=== PATIENT | female | born 1960 | race African-American/Black ===

== ENCOUNTER 2016-05-09 12:21 | Emergency (ER) | payer OTHER ==
[2016-05-09 13:15] LABS: MANUAL DIFF NEEDED? NO
[2016-05-09 13:23] LABS: BASO% 0.5 % (0.0-0.8); EOS# 0.12 X1000 (0.0-0.7); EOS% 1.9 % (0.0-10.0); HEMOGLOBIN 13.7 g/dL (12.0-16.0); LYMPH# 1.33 X1000 (1.2-3.4); LYMPH% 21.4 % (20.5-51.1); MCH 28.2 PG (27-31); MCHC 31.9 g/dL (33-37); MCV 88.7 FL (81-99); MONO# 0.28 X1000 (0.11-0.59); MONO% 4.5 % (1.7-9.3); MPV 11.8 FL (7.4-10.4); NEUT% 71.7 % (42.2-75.2); PLT 304 X1000 (130-400); RBC 4.85 XMIL (4.2-5.4)
[2016-05-09 13:43] LABS: CALCIUM 8.9 mg/dL (8.8-10.2); TOTAL BILIRUBIN 0.25 mg/dL (0.20-1.00); TOTAL PROTEIN 6.7 g/dL (6.3-8.3)
[2016-05-09] MEDS ORDERED: APRESOLINE IM ONE (14:29)
--- NOTE | 2016-05-09 14:34 | PROVIDER DOCUMENTATION ---
HPI-Abdominal Pain/GI Problem - General Chief Complaint: Abdominal Pain Stated Complaint: ABD PAIN/NECK PAIN Time Seen by Provider: 05/09/16 14:05 Source: patient Allergies/Adverse Reactions: Patient Allergies Allergy/AdvReac Type Severity Reaction Status Date / Time sulfamethoxazole Allergy Severe ANAPHYLAXIS Verified 03/27/16 22:02 [From ] trimethoprim [From ] Allergy Severe ANAPHYLAXIS Verified 03/27/16 22:02 morphine Allergy Intermediate HIVES Verified 03/27/16 22:02 Penicillins Allergy Mild HIVES Verified 03/27/16 22:02 Home Medications: Home Medication List Medication Instructions Recorded Confirmed Last Taken Type Metoprolol [Lopressor] 50 mg PO BID 09/03/14 03/27/16 05/08/16 07:00 History Alprazolam [Xanax] 1 mg PO BID 07/12/15 03/27/16 05/08/16 19:00 History Furosemide [Lasix] 40 mg PO DAILY 07/12/15 03/27/16 05/08/16 07:00 History Hydrocodone/Acetaminophen [[place] 1 tab PO BID 07/12/15 03/27/16 05/08/16 07:00 History 10-325 Tablet] Insulin Aspart Prot/Insuln Asp 15 units SUBQ HS 07/12/15 03/27/16 05/08/16 12: 00 History [Novolog Mix 70-30 Vial] Insulin Aspart Prot/Insuln Asp 30 units SUBQ QAM 07/12/15 03/27/16 05/08/16 19: 00 History [Novolog Mix 70-30 Vial] Promethazine [Phenergan] 25 mg PO Q6H PRN PRN 07/12/15 03/27/16 10/07/15 History Amlodipine Besylate [Norvasc] 10 mg PO DAILY #30 tablet 08/11/15 03/27/16 07:00 Rx Losartan [Cozaar] 50 mg PO DAILY #30 tablet 08/11/15 03/27/16 05/08/16 07:00 Rx Methocarbamol [Robaxin] 500 mg PO BID #20 tablet 05/09/16 Unknown Rx - History of Present Illness-ABD Nature of Presenting Problems: 55 y/o F presents with complaint of LLQ abdominal pain radiating up to LUQ since she had an abdominal surgery in August 2015. Patient states it feels like a "knot", sticking, and aching sensation. She also reports loose stools x 1 week and upper back pain x months. Pain in upper back feels like a "catch" located between her shoulder blades. She had a CT abd/pelvis on 03/15/16 for the same symptoms which was negative. She denies any fever, N/V. Abdominal Pain Onset Location: reports: LLQ Pain Radiation: reports: LUQ Quality of Pain: reports: other (see HPI) Onset/Duration: reports: other (see HPI) Timing: reports: still present (unchanged) Modifying Factors: improves with: nothing Last BM: this morning Dark Stools Present?: reports: none noticed Rectal Bleeding: reports: none Emesis Description: reports: none Review of Systems - Adult - REVIEW OF SYSTEMS - ADULT Constitutional: reports: no symptoms reported. denies: chills, fever Eyes: reports: no symptoms reported Ears, Nose, Mouth & Throat: reports: no symptoms reported Cardiovascular: reports: no symptoms reported. denies: chest pain Respiratory: reports: no symptoms reported. denies: cough, shortness of breath Gastrointestinal: reports: see HPI Genitourinary: reports: no symptoms reported. denies: dysuria, frequency, flank pain Musculoskeletal: reports: no symptoms reported Integumentary: reports: no symptoms reported. denies: itching, rash Neurological: reports: no symptoms reported. denies: dizziness/vertigo, headache/migraines, numbness, paresthesia Psychiatric: reports: no symptoms reported Endocrine: reports: no symptoms reported Hematologic/Lymphatic: reports: no symptoms reported Allergic/Immunologic: reports: no symptoms reported All Other Systems: Reviewed and Negative Past History - Adult - PAST MEDICAL HISTORY-ADULT Review of Records: reports: Old Records Reviewed, Nursing Assessment Review, Medications Reviewed Major Childhood Illnesses: reports: denies history Cardiovascular: reports: CHF, HTN, hyperlipidemia Respiratory: reports: asthma, COPD Gastrointestinal: reports: denies history Obstetrical/Gynecological: reports: other (post menopausal) Genitourinary: reports: denies history Musculoskeletal: reports: other (carpal tunnel syndrome bilaterally) Neurological: reports: denies history Psychiatric: reports: schizophrenia Endocrine/Immune: reports: Diabetes Other Conditions: reports: denies history - PRIOR SURGERIES/PROCEDURES Surgical/Procedure History: reports: BTL, orthopedic (extremity), other ( bilateral carpal tunnel release) - PRIOR HOSPITALIZATIONS Prior Hospitalizations: reports: for similar symptoms - IMMUNIZATION STATUS Childhood Immunizations: See Nurse Assessment Flu Vaccine: See Nurse Assessment - FAMILY HISTORY Family History: reviewed, not pertinent Physical Exam-General - PHYSICAL EXAM-ADULT Initial Vital Signs Reviewed: Yes - CONSTITUTIONAL General Appearance: appears well, alert, no apparent distress - EYES Eyes: PERRL/EOMI - HEAD, EARS, NOSE, MOUTH & THROAT HENMT: normocephalic/atraumatic, moist mucous membranes - NECK Neck: full range of motion, supple, other (TTP left rhomboids, pain with ROM.) - RESPIRATORY Respiratory: chest non-tender, lungs clear, normal breath sounds, no pleuratic chest pain, no respiratory distress, no accessory muscle use - CARDIOVASCULAR Cardiovascular: normal peripheral pulses, regular rate, rhythm, no edema - GASTROINTESTINAL (ABDOMEN) Abdominal Exam: normal bowel sounds, non tender, soft. negative: distended, guarding, rebound, mass - MUSCULOSKELETAL Extremity: normal range of motion, non-tender, normal gait - SKIN Integumentary: normal color, normal turgor, warm/dry - NEUROLOGIC Neurologic: grossly normal, no motor/sensory deficits - PSYCHIATRIC Psych/Mental Status: normal mood/affect, normal thought content, normal thought process, oriented x 3 Progress - PLAN OF CARE/RESULTS Progress/Plan/Lab Results: Laboratory Tests 05/09/16 05/09/16 05/09/16 12:45 12:45 Unknown WBC 6.22 RBC 4.85 Hgb 13.7 Hct 43.0 MCV 88.7 MCH 28.2 MCHC 31.9 L RDW Std Deviation 13.8 Plt Count 304 MPV 11.8 H Immature Gran % (Auto) 0.0 Neut % (Auto) 71.7 Lymph % (Auto) 21.4 [place] % (Auto) 4.5 Eos % (Auto) 1.9 Baso % (Auto) 0.5 Immature Gran # (Auto) 0.00 Neut # (Auto) 4.46 Lymph # (Auto) 1.33 [place] # (Auto) 0.28 Eos # (Auto) 0.12 Baso # (Auto) 0.03 Sodium 137 Potassium 5.0 Chloride 101 Carbon Dioxide 23 L Anion Gap 13 BUN 17 Creatinine 1.5 H Estimated GFR/1.73 m2 44 BUN/Creatinine Ratio 11 Glucose 300 H Calculated Osmolality 287 Calcium 8.9 Total Bilirubin 0.25 AST 12 ALT 7 L Alkaline Phosphatase 105 H Total Protein 6.7 Albumin 3.0 L Globulin 3.7 Albumin/Globulin Ratio 0.8 Amylase 58 Lipase 16 Urine Source CLEAN CATCH Urine Color YELLOW Urine Turbidity CLEAR Urine pH 6.5 Ur Specific [place] 1.017 Urine Protein 600 A Ur Glucose (Stick) 1000 A Ur Ketones (Stick) NEGATIVE Urine Blood SMALL A Urine Nitrite NEGATIVE Urine Bilirubin NEGATIVE Urobilinogen Dipstick NORMAL Urine Leukocytes NEGATIVE Urine WBC (Auto) <10 Urine RBC (Auto) 10-20 A U Epithel Cells (Auto) <10 Urine Bacteria (Auto) 1+ Orders Category Date Time Status NPO Diet 05/09/16 12:45 Active FLAT/UPRIGHT ABD/1 VIEW CHEST [RAD] Stat Exams 05/09/16 14:28 Draft AMYLASE [CHEM] Stat Lab 05/09/16 12:45 Completed CBC WITH ELECTRONIC DIFF [HEME] Stat Lab 05/09/16 12:45 Completed COMPREHENSIVE METABOLIC PANEL [CHEM] Stat Lab 05/09/16 12:45 Completed LIPASE [CHEM] Stat Lab 05/09/16 12:45 Completed URINALYSIS W/POSS RFLX CULT [URINALYSIS] Stat Lab 05/09/16 Completed Hydralazine [Apresoline] Med 05/09/16 14:29 Discontinued 10 mg IM NOW ONE Hydralazine [Apresoline] Med 05/09/16 15:30 Discontinued 10 mg IV NOW ONE Vital Signs Temp Pulse Resp BP Pulse Ox 05/09/16 14:29 84 20 185/102 05/09/16 12:34 97.7 F 87 20 185/104 99 sulfamethoxazole [From Septra] Allergy (Severe, Verified 03/27/16 22:02) ANAPHYLAXIS trimethoprim [From Septra] Allergy (Severe, Verified 03/27/16 22:02) ANAPHYLAXIS morphine Allergy (Intermediate, Verified 03/27/16 22:02) HIVES Penicillins Allergy (Mild, Verified 03/27/16 22:02) HIVES Metoprolol [Lopressor] 50 mg PO BID 09/03/14 Alprazolam [Xanax] 1 mg PO BID 07/12/15 Furosemide [Lasix] 40 mg PO DAILY 07/12/15 Hydrocodone/Acetaminophen [[place] 10-325 Tablet] 1 tab PO BID 07/12/15 Insulin Aspart Prot/Insuln Asp [Novolog Mix 70-30 Vial] 15 units SUBQ HS Insulin Aspart Prot/Insuln Asp [Novolog Mix 70-30 Vial] 30 units SUBQ QAM Promethazine [Phenergan] 25 mg PO Q6H PRN PRN 07/12/15 Amlodipine Besylate [Norvasc] 10 mg PO DAILY #30 tablet 08/11/15 Losartan [Cozaar] 50 mg PO DAILY #30 tablet 08/11/15 Dietary Diet NPO Start FriMay 09 1245 Laboratory 05/09/16 05/09/16 05/09/16 Unknown 12:45 12:45 WBC 6.22 RBC 4.85 Hgb 13.7 Hct 43.0 MCV 88.7 MCH 28.2 MCHC 31.9 L RDW Std Deviation 13.8 Plt Count 304 MPV 11.8 H Immature Gran % (Auto) 0.0 Neut % (Auto) 71.7 Lymph % (Auto) 21.4 [place] % (Auto) 4.5 Eos % (Auto) 1.9 Baso % (Auto) 0.5 Immature Gran # (Auto) 0.00 Neut # (Auto) 4.46 Lymph # (Auto) 1.33 [place] # (Auto) 0.28 Eos # (Auto) 0.12 Baso # (Auto) 0.03 Sodium 137 Potassium 5.0 Chloride 101 Carbon Dioxide 23 L Anion Gap 13 BUN 17 Creatinine 1.5 H Estimated GFR/1.73 m2 44 BUN/Creatinine Ratio 11 Glucose 300 H Calculated Osmolality 287 Calcium 8.9 Total Bilirubin 0.25 AST 12 ALT 7 L Alkaline Phosphatase 105 H Total Protein 6.7 Albumin 3.0 L Globulin 3.7 Albumin/Globulin Ratio 0.8 Amylase 58 Lipase 16 Urine Source CLEAN CATCH Urine Color YELLOW Urine Turbidity CLEAR Urine pH 6.5 Ur Specific [place] 1.017 Urine Protein 600 A Ur Glucose (Stick) 1000 A Ur Ketones (Stick) NEGATIVE Urine Blood SMALL A Urine Nitrite NEGATIVE Urine Bilirubin NEGATIVE Urobilinogen Dipstick NORMAL Urine Leukocytes NEGATIVE Urine WBC (Auto) <10 Urine RBC (Auto) 10-20 A U Epithel Cells (Auto) <10 Urine Bacteria (Auto) 1+ - REASSESSMENT Reassessment #1 Time Reassessed: 16:02 (BP improved to 154/90. Patient stable and in no distress. She is requesting to go home. Patient takes norco at home for pain. Will discharge home with robaxin for muscle pain and spasms to follow up with PCP.) Status: improving - XRAY 1 XRAY Study: Chest, Abdomen Comparison with other Films: no changes XRAY Interpretation: NAD Departure - Departure Time of Disposition Order: 16:03 DIAGNOSIS: Chronic abdominal pain, Chronic back pain Disposition: HOME 01 Certified Medical Emergency: Emergent Condition: Good Additional Instructions: ED Follow Up Instructions: You have been treated by a care provider in the Emergency Department. These instructions are being provided to you so you can have an understanding of how to care for yourself upon discharge. Upon discharge from the Emergency Department, you are responsible for making arrangements for follow-up care by a physician of your choice. Take all prescribed medications as directed. Return to the Emergency Department immediately for any new or worsening symptoms. You may call the Physician Referral phone number at [phone] to obtain a list of Physicians who are taking new patients. Prescriptions: Methocarbamol [Robaxin] 500 mg PO BID #20 tablet Attestation - Physician/ JOANS Attestation Patient care was provided by Advanced Practice Provider:: Yes Advanced Practice Provider:: Bree Lugo Advanced Practice Provider documentation review:: The Mid-level provider documentation, treatment plan and medical decision making was reviewed by the physician who agrees with all treatment and medical decision making by the MLP.
[2016-05-09 14:40] LABS: URINE CULTURE NEEDED? NO; URINE MICRO REVIEW NEEDED? NO; URINE SOURCE CLEAN CATCH
[2016-05-09 14:45] LABS: BILIRUBIN URINE NEGATIVE (NEGATIVE); BLOOD URINE SMALL (NEGATIVE); COLOR YELLOW; GLUCOSE URINE 1000 mg/dL (NEGATIVE); LEUKOCYTES URINE NEGATIVE (NEGATIVE); NITRITE URINE NEGATIVE (NEGATIVE); PH URINE 6.5; PROTEIN URINE 600 mg/dL (NEGATIVE); SP GRAVITY URINE 1.017; TURBIDITY URINE CLEAR (CLEAR); UR EPITHELIAL CELLS <10 /HPF (<10); URINE BACTERIA 1+ /HPF; URINE WBC <10 /HPF (<10); UROBILINOGEN URINE NORMAL (NORMAL)
[2016-05-09] MEDS ORDERED: APRESOLINE IV ONE (15:30)
--- NOTE | 2016-05-09 15:33 | Diag Imaging Result Document ---
PROCEDURE NAME: FLAT/UPRIGHT ABD/1 VIEW CHEST - 05/09/2016 FRONTAL CHEST X-RAY AND 2 VIEWS OF THE ABDOMEN: COMPARISON: 04/04/2016. FINDINGS: The chest is clear. There is a nonobstructive bowel gas pattern. No free air or abnormal calcifications. Stable lumbar spine surgical changes. IMPRESSION: No acute disease or change from prior.
[2016-05-09 16:18] VITALS: BP 176/84
== END 2016-05-09 16:18 | disposition home or self-care (01) ==
LOC: ED 12:21
DX: R10.32 Left lower quadrant pain (principal); R10.12 Left upper quadrant pain; M54.9 Dorsalgia, unspecified; G89.29 Other chronic pain; I50.9 Heart failure, unspecified; I10 Essential (primary) hypertension; E78.5 Hyperlipidemia, unspecified; J44.9 Chronic obstructive pulmonary disease, unspecified; Z79.899 Other long term (current) drug therapy; E11.9 Type 2 diabetes mellitus without complications; F20.9 Schizophrenia, unspecified; Z79.4 Long term (current) use of insulin
CPT/HCPCS: 74022; 80053; 81001; 82150; 83690; 85025; J0360

== ENCOUNTER 2018-12-31 03:39 | Inpatient (IN) ==
[2018-12-31] MEDS ORDERED: MAGNESIUM SULFATE 1 GM/D5W 1 GM/100 ML IVPB IV ONE (04:43)
[2018-12-31] MEDS ORDERED: DUONEB (A & A) INH ONE ×2 (04:43→05:45)
[2018-12-31] MEDS ORDERED: SOLU-MEDROL IV ONE (04:43)
[2018-12-31] MEDS ORDERED: LEVAQUIN 750 MG/D5W 750 MG/150 ML IVPB IV ONE (04:44)
--- NOTE | 2018-12-31 04:51 | PROVIDER DOCUMENTATION ---
HPI-General Adult - General Chief Complaint: Shortness of Breath Stated Complaint: SOB Time Seen by Provider: 12/31/18 04:23 Source: patient Allergies/Adverse Reactions: Patient Allergies Allergy/AdvReac Type Severity Reaction Status Date / Time sulfamethoxazole Allergy Severe ANAPHYLAXIS Verified 12/20/18 19:53 [From ] trimethoprim [From ] Allergy Severe ANAPHYLAXIS Verified 12/20/18 19:53 morphine Allergy Intermediate HIVES Verified 12/20/18 19:53 Penicillins Allergy Mild HIVES Verified 12/20/18 19:53 Home Medications: Home Medication List Medication Instructions Recorded Confirmed Last Taken Type Hydrocodone/Acetaminophen [[place] 1 each PO TID PRN 06/17/17 12/31/18 08/18/17 06:00 History 10-325 Tablet] 1 Insulin Aspart Prot/Insuln Asp 15 unit SQ WLUNCH 06/17/17 12/31/18 08/17/17 History [Novolog Mix 70-30 Vial] 15 Insulin Aspart Prot/Insuln Asp 30 units SUBQ BID 06/17/17 12/31/18 08/17/17 History [Novolog Mix 70-30 Vial] 30 Furosemide [Lasix] 40 mg PO DAILY #30 tab 12/21/18 12/31/18 Unknown Rx Apixaban [Eliquis] 2.5 mg PO DAILY 12/31/18 12/31/18 Unknown History - History of Present Illness -Gen Adult Nature of Presenting Problems: [address] NORRIS REPORTS SHE AWOKE 0200 SOB. NO HOME NEBULIZER. BREATHING OK YESTERDAY. NO FEVER. NO CHEST PAIN. 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 Review of Systems - Adult - REVIEW OF SYSTEMS - ADULT Constitutional: reports: no symptoms reported. denies: chills Eyes: reports: no symptoms reported Ears, Nose, Mouth & Throat: reports: no symptoms reported Cardiovascular: reports: no symptoms reported. denies: chest pain Respiratory: reports: no symptoms reported, dyspnea on exertion, shortness of breath. denies: excessive sputum production, wheezing Gastrointestinal: reports: no symptoms reported. denies: abdominal pain Genitourinary: reports: no symptoms reported Musculoskeletal: reports: no symptoms reported Integumentary: reports: no symptoms reported Neurological: reports: no symptoms reported Psychiatric: reports: no symptoms reported Endocrine: reports: no symptoms reported Hematologic/Lymphatic: reports: no symptoms reported Allergic/Immunologic: reports: no symptoms reported All Other Systems: Reviewed and Negative Past History - Adult - PAST MEDICAL HISTORY-ADULT Review of Records: reports: Old Records Reviewed, Nursing Assessment Review, Medications Reviewed, Social history reviewed & non-contributory. Major Childhood Illnesses: reports: denies history Cardiovascular: reports: CHF, HTN, hyperlipidemia Respiratory: reports: asthma, COPD Gastrointestinal: reports: GERD Obstetrical/Gynecological: reports: other (post menopausal) Genitourinary: reports: kidney disease Musculoskeletal: reports: other (carpal tunnel syndrome bilaterally) Neurological: reports: denies history Psychiatric: reports: anxiety, schizophrenia Endocrine/Immune: reports: Diabetes Other Conditions: reports: denies history - PRIOR SURGERIES/PROCEDURES Surgical/Procedure History: reports: BTL, orthopedic (extremity) (carpal tunnel bilateral/ R foot), joint replacement (knee), back/neck (back), other (bilateral carpal tunnel release/abdominal surgery) - PRIOR HOSPITALIZATIONS Prior Hospitalizations: reports: for similar symptoms - IMMUNIZATION STATUS Childhood Immunizations: See Nurse Assessment Flu Vaccine: See Nurse Assessment - FAMILY HISTORY Family History: reviewed, not pertinent Physical Exam-General - PHYSICAL EXAM-ADULT Initial Vital Signs Reviewed: Yes (HTN) - CONSTITUTIONAL General Appearance: appears well, alert, mild distress, other (ASLEEP AND HAD TO BE AWAKEN I ENETERED THE ROOM. ALERT WHEN AWAKE.) - EYES Eyes: PERRL/EOMI - HEAD, EARS, NOSE, MOUTH & THROAT HENMT: normocephalic/atraumatic, moist mucous membranes - NECK Neck: supple - RESPIRATORY Respiratory: chest non-tender, rales, wheezing. negative: accessory muscle use (MILD INCREADED WOB, NO TACHYPNEA), crackles, rhonchi - CARDIOVASCULAR Cardiovascular: regular rate, rhythm, no edema, no gallop, no JVD, no murmur - GASTROINTESTINAL (ABDOMEN) Abdominal Exam: non tender, soft - SKIN Integumentary: normal color, normal turgor, warm/dry - NEUROLOGIC Neurologic: final cigar and box examiner II-XII nml as tested, grossly normal, no motor/sensory deficits - PSYCHIATRIC Psych/Mental Status: normal mood/affect, normal thought content, normal thought process, oriented x 3 Progress - PLAN OF CARE/RESULTS Progress/Plan/Lab Results: Vital Signs - 8 hr 12/31/18 03:53 Temperature 97.9 F Pulse Rate 84 Respiratory Rate 18 Blood Pressure 183/77 O2 Sat by Pulse Oximetry 95 Orders Category Date Time Status Cardiac Monitoring DIRECTED Care 12/31/18 04:40 Ordered FSBS [Finger Stick Blood Sugar (ED)] DIRECTED Care 12/31/18 04:45 Ordered Saline Loc NOW Care 12/31/18 04:40 Ordered CHEST-PORTABLE [RAD] Stat Exams 12/31/18 04:42 Ordered BLOOD CULTURE [BLDCUL] Stat Lab 12/31/18 04:41 Ordered CBC WITH ELECTRONIC DIFF [HEME] Stat Lab 12/31/18 04:41 Uncollected COMPREHENSIVE METABOLIC PANEL [CHEM] Stat Lab 12/31/18 04:41 Ordered D-DIMER [COAG] Stat Lab 12/31/18 04:41 Ordered LACTATE, PLASMA [CHEM] Stat Lab 12/31/18 04:41 Uncollected MAGNESIUM [CHEM] Stat Lab 12/31/18 04:41 Uncollected PROTIME WITH INR [COAG] Stat Lab 12/31/18 04:41 Uncollected PTT [COAG] Stat Lab 12/31/18 04:41 Uncollected TROPONIN T Stat Lab 12/31/18 04:41 Uncollected URINALYSIS W/POSS RFLX CULT [URINALYSIS] Stat Lab 12/31/18 04:41 Uncollected Albuterol 2.5MG/Ipratrop 0.5MG [Duoneb (A & A)] Med 12/31/18 04:43 Once 3 ml INH NOW ONE Levaquin 750 mg/D5w IV Now Med 12/31/18 04:44 Ordered Levofloxacin 750 mg/D5w [Levaquin 750 mg/D5w] 750 mg in 150 ml IV NOW Magnesium Sulfate 1 gm/100 ml Over 1 Hr Med 12/31/18 04:43 Ordered Magnesium Sulfate 1 gm/D5w 1 gm in 100 ml IV NOW Methylprednisolone Sod Succ [Solu-Medrol] Med 12/31/18 04:43 Once 80 mg IV NOW ONE Aerosol Treatments Routine Oth 12/31/18 04:44 Ordered Aerosol Treatments Stat Oth 12/31/18 04:44 Ordered EKG [EKG] Stat Ther 12/31/18 04:41 Ordered Result Diagrams: 12/31/18 05:10 12/31/18 05:10 - EKG 1 Time of EKG reading by physician:: 05:39 EKG Read and Signed by:: Delano Chandler EKG Interpretation (*Must complete 3 of following elements*): Abnormal Rate: 78 Rhythm: NSR [place]: left QRS: RBB SD Interval: normal ST Wave: non-specific ST changes (NSR,IRBBB,LAFBLOCK,LONG QT) - XRAY 1 XRAY Study: Chest Impression: Abnormal (EP INTERP: INCREASED INTERSTITIAL MARKINGS SIMILAR TO PRIOR AND LIKELY REPRESENTING PLUMONARY FIBROSIS AND PULMONARY EDEMA.) - CONSULTS/PCP/HOSPITALIST Notification #1 *Consult/PCP/Hospitalist*: dr ramos Time Discussed: 06:39 Consult Disposition: Admit (DR RAMOS TELLS ME HE WILL PASS NAME AND INFO TO HOSPITALIST DAY TEAM AND CARDIOLOGY: ADMIT) Departure - Departure Date of Disposition Decision: 12/31/18 Time of Disposition Decision: 06:40 DIAGNOSIS: Shortness of breath at rest, Bronchospasm, Hypertensive urgency, Elevated troponin, D-dimer, elevated Fluid overload Qualifiers: Hypervolemia type: unspecified Qualified Code(s): E87.70 - Fluid overload, unspecified Disposition: ADMITTED INPATIENT 09 Certified Medical Emergency: Emergent Condition: Stable Referrals and Follow-Ups: Ciro Fall MD [Primary Care Provider] - - Critical Care Note This patient required my direct & personal management of CC.: No Attestation - Physician/ JONAS Attestation The physician spent face to face time with patient:: Yes Advanced Practice Provider documentation review:: Supervising physician onsite and consulted in the evaluation and care of this patient. The physician did have a face to face encounter with the patient.
[2018-12-31 05:23] LABS: BASO# 0.02 X1000 (0.0-0.2); BASO% 0.4 % (0.0-0.8); EOS# 0.23 X1000 (0.0-0.7); EOS% 4.1 % (0.0-10.0); HEMATOCRIT 40.8 % (37.0-47.0); HEMOGLOBIN 12.7 g/dL (12.0-16.0); IMM GRAN# 0.02 X1000 (0.0-0.04); IMM GRAN% 0.4 % (0.0-0.5); LYMPH# 1.21 X1000 (1.2-3.4); LYMPH% 21.4 % (20.5-51.1); MCH 29.2 PG (27-31); MCHC 31.1 g/dL (33-37); MCV 93.8 FL (81-99); MONO# 0.45 X1000 (0.11-0.59); MPV 11.8 FL (7.4-10.4); NEUT# 3.73 X1000 (1.4-6.5); NEUT% 65.7 % (42.2-75.2); PLT 221 X1000 (130-400); RBC 4.35 XMIL (4.2-5.4); RDW 15.7 % (11.5-14.5); WBC 5.66 X1000 (4.8-10.8)
[2018-12-31 05:23] LABS: ALLEN TEST YES; BE -5.1 mmoll (-3.0-3.0); BLOOD TYPE ARTERIAL; HCO3-(ACT) 20.7 mmoll (20.0-26.0); METHB 1.2 % (0.0-1.5); O2(CT) 15.1 mL/dL (15.0-23.0); PCO2(98.6) 43 mmHg (35-45); PO2(98.6) 69 mmHg (60-100); SAMPLE BLOOD; SAO2 95.7 % (95.0-100.0); THB 12.1 g/dL (11.5-17.4)
[2018-12-31 05:25] LABS: MODALITY ROOM AIR; O2HB 88.5 % (95.0-99.0)
[2018-12-31 05:30] LABS: INR 1.01; PROTIME 13.4 Seconds (11.0-16.0)
[2018-12-31 05:31] LABS: PTT 37.2 Seconds (22.3-41.8)
[2018-12-31 06:17] LABS: ALB/GLOB RATIO 1.4; ALBUMIN 3.8 g/dL (3.5-5.0); CALCIUM 8.1 mg/dL (8.8-10.2); POTASSIUM 4.6 mmol/L (3.5-5.1); TOTAL BILIRUBIN 0.22 mg/dL (0.20-1.00); TOTAL PROTEIN 6.6 g/dL (6.3-8.3)
[2018-12-31 06:32] LABS: CREATININE 10.1 mg/dL (0.5-0.9)
--- NOTE | 2018-12-31 07:34 | EKG Report ---
Test Performed on : 12/31/2018 05:34:33 AM Test Reason : SOB Blood Pressure : / mmHG Vent. Rate : 078 BPM Atrial Rate : 078 BPM P-R Int : 166 ms QRS Dur : 094 ms QT Int : 440 ms P-R-T Axes : 068 -47 023 degrees QTc Int : 501 ms Normal sinus rhythm. Possible Left atrial enlargement Incomplete right bundle branch block Left anterior fascicular block Prolonged QT Abnormal ECG When compared with ECG of 27-DEC-2017 06:14, premature supraventricular complexes. are no longer present Unconfirmed Result
--- NOTE | 2018-12-31 07:39 | Diag Imaging Result Doc PS360 ---
EXAM: CHEST-PORTABLE 12/31/2018 HISTORY: SOB TECHNIQUE: AP portable at 0503 COMMENT: The inspiration is less optimal than on 12/20/2018. There has been some improvement in the atelectasis present over the lateral left base at the time the previous study. Otherwise considering differences in inspiration there has been no appreciable change. IMPRESSION: Improved left lower lobe atelectasis. Electronically signed by Saúl Castillo 12/31/2018 7:37 AM
[2018-12-31] MEDS ORDERED: NORVASC PO SCH (09:31)
[2018-12-31] MEDS ORDERED: ELIQUIS PO SCH (09:31)
[2018-12-31] MEDS ORDERED: NS 2,000 ML MISC PRN (10:26)
[2018-12-31] MEDS: DUONEB (A & A) INH SCH ×4 (12:16→23:18)
[2018-12-31 12:36] LABS: ALLEN TEST YES; BE -0.4 mmoll (-3.0-3.0); BLOOD TYPE ARTERIAL; HCO3-(ACT) 24.5 mmoll (20.0-26.0); METHB 1.3 % (0.0-1.5); O2(CT) 16.8 mL/dL (15.0-23.0); O2HB 91.2 % (95.0-99.0); PCO2(98.6) 42 mmHg (35-45); PO2(98.6) 71 mmHg (60-100); SAMPLE BLOOD; SAO2 96.2 % (95.0-100.0); THB 13.1 g/dL (11.5-17.4); pH(98.6) 7.38 (7.35-7.45)
[2018-12-31 12:37] LABS: MODALITY ROOM AIR
[2018-12-31] MEDS ORDERED: INSULIN PEN NEEDLES ONE (13:14)
--- NOTE | 2018-12-31 13:19 | HISTORY AND PHYSICAL ---
PRIMARY CARE PROVIDER: Dr. Fall. PRIMARY WOOD GLUER: Dr. Shepherd. CHIEF COMPLAINT: Shortness of breath. HISTORY OF PRESENT ILLNESS: Ms. Michelle Lara is a 58-year-old female with a medical history of diastolic dysfunction, end-stage renal disease, on hemodialysis Friday, Friday, Friday, hypertension, diabetes, schizophrenia, COPD, who is now here with complaints of shortness of breath she said at least for a week. She missed dialysis yesterday, and her shortness of breath was worse through the night. She was unable to lay down and sleep, so she presented to the emergency department today with these complaints. Dr. Shepherd has been consulted and made aware of the patient's presentation to the emergency department, and she is going to have hemodialysis today. Hypertensive, she is in the 190s. It does appear that she takes several blood pressure medications at home. Will need to get those resumed. PAST MEDICAL HISTORY: 1. Diastolic dysfunction. 2. Hypertension. 3. Hyperlipidemia. 4. COPD. 5. Schizophrenia. 6. Diabetes mellitus type 2. 7. End-stage renal disease, Friday, Friday, Friday hemodialysis. 8. Diabetic neuropathy. 9. Right lower extremity DVT. 10. Chronic pain syndrome. 11. 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 It also included the mons pubis and the proximal thigh. 12. Frequent occlusions of the AV graft in the left upper arm with attempts of thrombectomies that apparently were unsuccessful. PAST SURGICAL HISTORY: 1. Bilateral tubal ligation. 2. Bilateral carpal tunnel. 3. Right groin I and D. 4. Right foot surgery. 5. Left upper extremity arteriovenous graft thrombectomies x3. 6. Right upper extremity AV graft, currently patent. SOCIAL HISTORY: Smokes less than a half pack per day since the age of 15. Has a history of cocaine use, but denies that now. Denies marijuana. No alcohol. Lives at home. Her in 2017. FAMILY HISTORY: Her sister had CKD and diabetes. Her grandfather had hypertension. Her mother had cancer in her 60s, but it was an unknown cancer. ALLERGIES: Bactrim, morphine, penicillin. HOME MEDICATIONS: Currently, they are not accurate. Pulling up her external home medication list, she is on: 1. Amlodipine 10 mg. 2. Durezol. 3. Eliquis 2.5 twice a day. 4. Lasix 40 mg. 5. Humalog 75/25. 6. [place] 10. 7. Losartan potassium 50 mg tablets. 8. Metoprolol succinate extended-release 50 mg. 9. Polysporin (that is for the eyes). 10. Steroid (prednisone) for the eyes. 11. Tizanidine hydrochloride 4 mg. 12. Velphoro 500 mg. 13. Ventolin inhalers. 14. Xanax 1 mg. 15. Amlodipine 10 mg. 16. Neurontin 300 mg. REVIEW OF SYSTEMS: A 14-point review of systems is complete, and all were negative, except for those mentioned in the above HPI. PHYSICAL EXAMINATION: VITAL SIGNS: Temperature 98 degrees, heart rate 85, respiratory rate 20, blood pressure 191/77, O2 saturation 100% on room air. GENERAL: Ms. Michelle Lara is a 58-year-old female. She is in no acute distress. She is able to answer questions appropriately. HEENT: Atraumatic, normocephalic. Pupils equal, round, reactive to light. Extraocular movements intact. Mucous membranes are moist. NECK: Trachea midline. CARDIOVASCULAR: S1, S2. Regular rate and rhythm. No rubs, gallops. Maybe a mild murmur heard. She has got 1+ lower extremity edema. There are 2+ dorsalis pedal and radial pulses. Positive AV graft bruit and thrill on the right upper extremity. Mild JVD. Negative for carotid bruits. PULMONARY: Inspiratory wheezes noted anterior and posteriorly with mild shortness of breath or work of breathing. She is tolerating room air at this time. GASTROINTESTINAL: Soft, nontender, nondistended. Positive bowel sounds x4. EXTREMITIES: Moves all extremities equally, full, with decreased range of motion, and again, right upper extremity AV graft has positive bruit and thrill. NEUROLOGIC: Oriented x3. Follows commands. Decreased sensory in the lower extremities. SKIN: Warm, dry, intact. LABORATORY DATA: White blood cells 5000, hemoglobin 12, hematocrit 40, platelet count 221,000. INR is 1.01, PTT 37.2. D-dimer is 1.12. PH 7.30, pCO2 of 43, bicarb 20, base excess -5, saturation 88.5%, lactate 0.6 (this is on room air). Sodium 144, potassium 4.6, BUN 62, creatinine 10.1, glucose 149, calcium 8.1, magnesium 2.7, bilirubin 0.22, AST 16, ALT 11. Troponin 0.095. ProBNP 5424. Albumin is 3.8. Serum lactate 0.8. IMAGING: Chest x-ray: Improved left lower lobe atelectasis. EKG: Normal sinus rhythm, rate 78, QTc 501. ASSESSMENT AND PLAN: 1. Fluid volume overload secondary to missing her hemodialysis appointment yesterday, and she has end-stage renal disease, so she will have a consult with Dr. Shepherd, and have dialysis today. 2. Hypertensive urgency. She has several home medications that we are getting reconciled. Will get that started. She has been hanging in the 190s right now. Currently, the only thing that has been started is Norvasc 5 mg by mouth daily. It is really more uncontrolled hypertension. It should improve with hemodialysis as well. 3. Diabetes mellitus type 2. Will do pattern blood glucoses, sliding scale insulin. 4. Upper respiratory infection, likely viral. White count is normal. There is some atelectasis noted in the left lower lobe. She did get a dose of Levaquin in the emergency room, but will just manage with intravenous steroids and DuoNebs every 4 hours. 5. History of left upper extremity arteriovenous graft and chronic clot or deep venous thrombosis in the arteriovenous graft. History of thrombectomies. She is going to continue on Eliquis for that. 6. Chronic pain syndrome. Continue [place]. 7. Acute hypoxemic respiratory insufficiency. Has improved quite a bit with nebulizers and steroids. Actually, she is even tolerating room air at this time. 8. Schizophrenia, stable at this time. 9. Chronic obstructive pulmonary disease, again on steroids and nebulizers. 10. Diastolic dysfunction. Continue Lasix. It looks like she takes metoprolol at home, so will need to get that resumed once it gets verified. 11. History of gangrene versus necrotizing fasciitis in the right groin in the past that has since healed. 12. Tobacco abuse. Cessation discussed. Dictated by DIXIE Quiroz for Yohannes Chavez MD cc: DIXIE Quiroz Patient with marked wheezing at the time of my exam although fair air entry. also some bibasilar crackles. appears to have COPD exacerbation and volume overload secondary to ESRD status and missed dialysis. likely viral URI as the cause of her exacerbation. NAYA
--- NOTE | 2018-12-31 14:49 | NEPHROLOGY CONSULTATION ---
DATE: 12/31/2018 Chief complaint: My breath started getting short on me. HPI: Mrs. Lara is a 58-year-old -[place] female with a past medical history of chronic kidney disease stage 5D requiring hemodialysis at the [facility] on Friday, Friday, and Friday. She started having loose, incontinent stools two weekends ago beginning on December 21. On her scheduled hemodialysis day that following Friday she developed abdominal cramping after her treatment that has lasted the last two weeks. She has been able to attend all of her treatments until yesterday when she had an incontinent episode as her Transportation came to pick her up. Yesterday evening she began experiencing shortness of breath with orthopnea and presented to the emergency department today. It should be noted that she has been on an antibiotic eye drop for an unknown infection to the left eye with scheduled surgery on January 19. She is unable to tell me what the medication is, her diagnosis for her eye, or the doctor treating her. Past medical history: chronic kidney disease 5D with hemodialysis on MWF at the [facility] and is followed by , diabetes Mellitus type 2, COPD, schizophrenia, hypertension, chronic anemia. Past surgical history: carpal tunnel, right knee replacement, back surgery, right foot surgery, AV fistula placement to right upper arm. Social history: Lives at home with a significant other. Smoke half a pack a day since she was 15, denies alcohol or drugs now but has a history of dependence. Family history: mother positive for cancer, hypertension, sister on HD, father killed young. Allergies: sulfa, trimethoprim, penicillin, morphine Home medications: Eliquis, lasix, norco 10, novolog 70/30 Review of systems: neurological: Denies altered mental status, admits to some confusion. Eyes: denies blurriness, dryness, or change in visual acuity. Admits to drainage from left. ENT: denies tinnitus or change in hearing. Integumentary: denies color change, rash or itch. Admits to drainage. Respiratory: admits to shortness of breath and orthopnea. Denies productive cough. Cardiovascular: denies palpitations or chest pain. GI: Denies constipation and nausea and vomiting. Admits to frequent loose stool. : denies any color change amount or odor in urine. Endocrine: denies excessive thirst or hunger. Musculoskeletal: denies any increase in weakness or extremity pain. Labs: WBC 5.66, hemoglobin 12.7, hematocrit 40.8, platelet count 221, sodium 144, potassium 4.6, carbon dioxide 21, chloride 102, anion gap 21, BUN 62, creatinine 10.1, calcium 8.1, magnesium 2.7, troponin 0.095, proBNP 5424. ABG: pH 7.30, PCO2 43, PO2 69, HCO3 20.7, base excess -5.1, Oxyhemoglobin 88.5, lactate 0.60. Imaging: chest x-ray impression: improved left lower lobe atelectasis compared to 12/20/2018. Physical exam: Vitals. Temperature 98.0, pulse 85, respirations 20, blood pressure 191/77, 02 sat 98% on 2 L nasal cannula. General: chronic Ill appearing female lying in bed in no acute distress eating breakfast. HEENT: Normocephalic, atraumatic. Trachea midline. Mucous membranes moist. Erythema to both eyes. Skin: warm and dry. Neck: supple, 6 cm JVD observed sitting upright in chair. Cardiovascular: S1, S2, Regular rate, no murmur or gallop. Respiratory: high pitched musical lung sounds throughout anteriorly. Abdomen: soft, tenderness noted to left upper quadrant, nondistended. Bowel sounds present. : non-inspected Extremities:1+ pitting Edema to right and left lower extremity, right upper arm, fistula with positive thrill and bruit. Neurological: alert and oriented to person and place. Assessment and plan: Chronic kidney disease stage 5D. With difficulty her access was cannulated and she received her dialysis treatment. We will likely treat again tomorrow to get her back on her schedule. Seen during dialysis today. Blood pressure. Above target. Staff trying to reconcile home medications. Reassess after dialysis. Fluid volume. Above target. cc: Celso Shepherd MD [facility]
[2018-12-31] MEDS: LASIX PO SCH (16:25)
[2018-12-31] MEDS: SOLU-MEDROL IV SCH ×2 (16:25→21:06)
[2018-12-31] MEDS: TOPROL XL PO SCH (16:25)
[2018-12-31] MEDS: COZAAR PO SCH (16:25)
[2018-12-31] MEDS: NORCO-10 PO PRN ×2 (16:27→21:08)
[2018-12-31] MEDS: NOVOLOG MIX 70/30 SUBQ SCH ×2 (16:28→21:07)
[2018-12-31] MEDS: ZOFRAN IV PRN (18:57)
[2018-12-31] MEDS: ELIQUIS PO SCH (21:07)
[2019-01-01] MEDS: DUONEB (A & A) INH SCH ×5 (03:35→23:15)
[2019-01-01] MEDS: SOLU-MEDROL IV SCH ×3 (04:59→21:26)
[2019-01-01 05:23] LABS: BASO# 0.01 X1000 (0.0-0.2); BASO% 0.2 % (0.0-0.8); HEMATOCRIT 40.5 % (37.0-47.0); HEMOGLOBIN 12.4 g/dL (12.0-16.0); IMM GRAN# 0.02 X1000 (0.0-0.04); IMM GRAN% 0.3 % (0.0-0.5); LYMPH# 0.41 X1000 (1.2-3.4); LYMPH% 6.9 % (20.5-51.1); MCH 28.7 PG (27-31); MCHC 30.6 g/dL (33-37); MCV 93.8 FL (81-99); MONO# 0.18 X1000 (0.11-0.59); MPV 12.3 FL (7.4-10.4); NEUT# 5.33 X1000 (1.4-6.5); NEUT% 89.6 % (42.2-75.2); PLT 177 X1000 (130-400); RBC 4.32 XMIL (4.2-5.4); RDW 15.4 % (11.5-14.5); WBC 5.95 X1000 (4.8-10.8)
[2019-01-01 06:15] LABS: LYMPHS 7 % (21-51); MONO 4 % (1-9); SEGS 89 % (42-75)
[2019-01-01 06:16] LABS: CALCIUM 8.6 mg/dL (8.8-10.2); CREATININE 6.7 mg/dL (0.5-0.9); POTASSIUM 5.8 mmol/L (3.5-5.1)
[2019-01-01] MEDS ORDERED: NS 2,000 ML MISC PRN (06:45)
[2019-01-01] MEDS ORDERED: HEPARIN IV PRN (06:45)
[2019-01-01] MEDS ORDERED: TIGHT: 0.2 ML/HR FOR DIALYSIS MISC PRN (06:45)
--- NOTE | 2019-01-01 06:58 | Diag Imaging Result Doc PS360 ---
EXAM: CHEST-PORTABLE 01/01/2019 HISTORY: dyspnea. esrd. copd TECHNIQUE: AP portable at 0544 COMMENT: There is increased pulmonary vascularity. There is mild interstitial opacity over the left base. Compared to 12/31/2018 this is slightly worse. IMPRESSION: Mild pulmonary edema. Electronically signed by Saúl Castillo 01/01/2019 6:56 AM
[2019-01-01] MEDS: NOVOLOG MIX 70/30 SUBQ SCH ×2 (08:22→17:48)
[2019-01-01] MEDS: NORCO-10 PO PRN ×2 (08:25→17:54)
[2019-01-01 08:42] LABS: URINE SOURCE CLEAN CATCH
[2019-01-01 08:51] LABS: BILIRUBIN URINE NEGATIVE (NEGATIVE); BLOOD URINE SMALL (NEGATIVE); COLOR YELLOW; GLUCOSE URINE TRACE mg/dL (NEGATIVE); KETONE URINE NEGATIVE (NEGATIVE); LEUKOCYTES URINE NEGATIVE (NEGATIVE); NITRITE URINE NEGATIVE (NEGATIVE); PROTEIN URINE 200 mg/dL (NEGATIVE); SP GRAVITY URINE 1.012; TURBIDITY URINE CLEAR (CLEAR); UROBILINOGEN URINE NORMAL (NORMAL)
[2019-01-01 09:03] LABS: UR EPITHELIAL CELLS <10 /HPF (<10); URINE BACTERIA NEGATIVE /HPF; URINE RBC <10 /HPF (<10); URINE WBC <10 /HPF (<10)
--- NOTE | 2019-01-01 11:02 | PROGRESS NOTE ---
DATE: 01/01/2019 INTERVAL HISTORY: The patient is still with some dyspnea on exertion. Still some wheezing, although much improved from previous. Still some nonproductive cough. Went for dialysis yesterday and going again today to get back on schedule and attempt to get a little more fluid off her. Afebrile. REVIEW OF SYSTEMS: A 12-point review of systems is negative except as per interval history. DIAGNOSTIC DATA: WBC is 5.9, hemoglobin 12.4, hematocrit 40.5, platelets 177. Sodium is 139, potassium 5.8, bicarb 21, BUN is 45, creatinine 6.7, glucose 78 to 112. Urinalysis actually essentially unremarkable aside from some mild proteinuria. Imaging: Chest x-ray still some mild pulmonary edema. OBJECTIVE: Vital signs: T-max is 98.5, pulse 70, respirations 22, blood pressure 195/87, O2 saturation is 97% on room air. General: No acute distress. Vital signs as above. HEENT: Normocephalic and atraumatic. Moist mucous membranes. No cervical adenopathy. Cardiovascular: Regular rate and rhythm. No murmurs noted. Pulmonary: Good air entry but still with fairly diffuse expiratory wheezing. Wheezing is improved from previous. Abdomen: Soft, nontender, nondistended. Bowel sounds positive. Extremities: Peripheral pulses intact. Right upper extremity with AV graft with good thrill. There is 1+ lower extremity edema proximally, stable. Neurologic: Cranial nerves grossly intact. No focal deficits identified. Psychiatric: Normal mood and affect. Awake, alert and oriented x3. Skin: Warm, dry. No new rashes. ASSESSMENT AND PLAN: 1. Respiratory distress. Secondary to volume overload related to missing dialysis and COPD exacerbation. Dialyzed yesterday and dialyzing again today. Hopefully that will help get rid of some of the pulmonary edema seen on x-ray. She does appear much more comfortable today. Continue monitoring. O2 saturations have been good. I strongly suspect the patient's volume overload is related to end stage renal disease and missing dialysis. It has been a while she has had an echocardiogram, so we will go ahead and check that. 2. Chronic obstructive pulmonary disease exacerbation, likely related to volume overload and possibly viral upper respiratory infection. Improving with steroids and nebulizers. Got a dose of Levaquin in the ER but no evidence of pneumonia. Initially Levaquin was continued because of complaints of lower abdominal pain and possible UTI, but urinalysis now back and without evidence of infection, so we will discontinue antibiotics. 3. Diabetes mellitus. Overall acceptable control. Monitor. 4. Hypertension. Restarted the patient's home medications in dialysis yesterday, but blood pressure remains quite uncontrolled. We will start scheduled p.o. hydralazine and monitor. 5. Chronic pain. Continue home [place]. 6. History of deep venous thrombosis. Continue Eliquis. 7. Schizophrenia, stable. 8. Tobacco abuse. Cessation has been discussed.
[2019-01-01 11:37] LABS: HEPATITIS PROFILE ACUTE SEE COMMENTS
[2019-01-01] MEDS ORDERED: D50W SYRINGE IV ONE (13:38)
[2019-01-01] MEDS: TOPROL XL PO SCH (13:53)
[2019-01-01] MEDS: LASIX PO SCH (13:53)
[2019-01-01] MEDS: NORVASC PO SCH (13:53)
[2019-01-01] MEDS: ELIQUIS PO SCH ×2 (13:53→20:38)
[2019-01-01] MEDS: APRESOLINE PO SCH ×3 (13:53→20:38)
[2019-01-01] MEDS: COZAAR PO SCH (13:53)
--- NOTE | 2019-01-01 15:44 | NEPHROLOGY PROGRESS NOTE ---
DATE: 01/01/2019 SUBJECTIVE: She states that she is breathing much better today. She remains somewhat short of breath however. OBJECTIVE: Vital Signs: Blood pressure 157/63, heart rate 76, respirations 20, afebrile. General: No acute distress. Skin: Warm and dry. Neck: Neck veins remain distended. Heart: Regular with S4. Lungs: Equal with wheezing. Abdomen: Soft and nontender. Extremities: 1+ edema. No clubbing or cyanosis. IMPRESSION: Chronic kidney disease 5D. She will have dialysis again today using a 2K bath and we will challenge her dry weight with 3 to 4 L of ultrafiltration as tolerated. She does have moderate hyperkalemia with potassium of 5.8. Acid-base and anemia are in target. Blood pressure is above target but again we will challenge her dry weight. cc: Celso Shepherd MD
[2019-01-01] MEDS ORDERED: LEVAQUIN PO SCH (16:00)
[2019-01-01] MEDS: MIRALAX PO SCH ×2 (16:41→20:37)
[2019-01-02] MEDS: DUONEB (A & A) INH SCH ×7 (04:37→22:58)
[2019-01-02] MEDS: SOLU-MEDROL IV SCH ×3 (05:15→21:23)
[2019-01-02] MEDS: ZOFRAN IV PRN ×2 (05:15→23:55)
[2019-01-02 06:31] LABS: BASO# 0.01 X1000 (0.0-0.2); BASO% 0.1 % (0.0-0.8); HEMATOCRIT 40.9 % (37.0-47.0); HEMOGLOBIN 12.8 g/dL (12.0-16.0); IMM GRAN# 0.02 X1000 (0.0-0.04); IMM GRAN% 0.2 % (0.0-0.5); LYMPH# 0.56 X1000 (1.2-3.4); LYMPH% 6.1 % (20.5-51.1); MCH 29.2 PG (27-31); MCHC 31.3 g/dL (33-37); MCV 93.4 FL (81-99); MONO# 0.35 X1000 (0.11-0.59); MONO% 3.8 % (1.7-9.3); MPV 11.9 FL (7.4-10.4); NEUT% 89.8 % (42.2-75.2); PLT 198 X1000 (130-400); RBC 4.38 XMIL (4.2-5.4); RDW 15.3 % (11.5-14.5); WBC 9.14 X1000 (4.8-10.8)
--- NOTE | 2019-01-02 06:52 | ECHO REPORT ---
ORDER DATE: 12/31/2018 INDICATION: Orthopnea, dyspnea, CHF. FINDINGS: 1. Right atrium appears normal size. 2. Mild tricuspid regurgitation. RV systolic pressure 23. 3. Normal RV size and systolic function. 4. No significant pulmonic insufficiency. 5. Mild to moderate left atrial enlargement with a volume index of 34. 6. No mitral valve prolapse. Mild mitral regurgitation. No evidence of mitral stenosis. 7. Normal LV size, end-diastolic dimension of 5.4 cm. Mild left ventricular hypertrophy with an interventricular septal wall thickness 1.3 cm. Normal LV systolic function with a calculated EF of 61%. 8. Aortic valve opens well. It is trileaflet. There is mild to moderate aortic insufficiency with no stenosis. 9. Aorta appears normal in visualized segments. 10. No pericardial effusion seen. cc: Fernandez Angel MD
[2019-01-02 07:00] LABS: CREATININE 5.9 mg/dL (0.5-0.9)
[2019-01-02 07:38] LABS: LYMPHS 10 % (21-51); MONO 2 % (1-9); SEGS 88 % (42-75)
[2019-01-02] MEDS: NOVOLOG MIX 70/30 SUBQ SCH ×2 (08:02→16:26)
[2019-01-02] MEDS: LASIX PO SCH (08:04)
[2019-01-02] MEDS: APRESOLINE PO SCH ×3 (08:04→21:23)
[2019-01-02] MEDS: TOPROL XL PO SCH (08:04)
[2019-01-02] MEDS: COZAAR PO SCH (08:04)
[2019-01-02] MEDS: NORVASC PO SCH (08:04)
[2019-01-02] MEDS: ELIQUIS PO SCH ×2 (08:04→21:23)
[2019-01-02] MEDS: MIRALAX PO SCH ×2 (08:04→21:23)
[2019-01-02] MEDS: NORCO-10 PO PRN ×2 (08:08→21:25)
[2019-01-02] MEDS ORDERED: D50W SYRINGE ONE (11:16)
[2019-01-02] MEDS ORDERED: NICODERM PATCH TD PRN (13:36)
--- NOTE | 2019-01-02 16:30 | PROGRESS NOTE ---
DATE: 01/02/2019 SUBJECTIVE: The patient states that she wants to go home. States she is feeling better. Unfortunately, however, she has had an episode of low blood sugar in the 50s. This was after she had eaten breakfast, but had already received her a.m. 70/30 insulin. PHYSICAL EXAMINATION: Vital Signs: Reviewed. She is afebrile. Blood pressure is stable. Respiratory 20. General: The patient upon my exam is awake, alert, and oriented. She is sitting up, eating breakfast. This was prior to her hypoglycemic episode. HEENT: Normocephalic. Neck: Supple. Cardiovascular: Regular rate. Chest: Wheezing throughout, but relatively good air movement. Abdomen: Soft, nondistended. Extremities: Moves all extremities. No edema. Neurologic: No focal changes. ASSESSMENT: 1. Diabetes with hypoglycemia. She has already received her insulin this morning. We are going to place her on a hypoglycemic protocol and continue to follow. Certainly, we will hold her insulin tomorrow. 2. Hyperkalemia, improved. 3. Hyponatremia. 4. Chronic renal failure. She did receive hemodialysis yesterday. 5. Wheezing. PLAN: We are going to continue patient in the hospital today. Place her hypoglycemic protocol, hold her subsequent insulin. Nephrology is following her kidney function. cc: Dago Rodriguez MD
--- NOTE | 2019-01-02 18:39 | NEPHROLOGY PROGRESS NOTE ---
DATE: 01/02/2019 SUBJECTIVE: She is having a sensation of nasal congestion, and according to the staff, she is blowing her nose violently, coughing. OBJECTIVE: Vital Signs: Blood pressure 189/83, heart rate 92, respirations 18, afebrile. General: No acute distress. Skin: Warm and dry. Neck: Neck veins are distended. Heart: Regular. Lungs: Equal with wheezing. Abdomen: Soft, nontender. Extremities: Trace to 1+ edema. No clubbing or cyanosis. IMPRESSION: Wheezing. Not clear that she has volume overload. We have certainly addressed her pulmonary edema with dialysis over the last 2 days. She is net negative approximately 4 L at this point. I will repeat her chest x-ray and administer inhaled bronchodilator treatments. And observe her response. cc: Celso Shepherd MD
--- NOTE | 2019-01-02 18:53 | Diag Imaging Result Doc PS360 ---
EXAM: CHEST-2 VIEWS - 01/02/2019 HISTORY: reassess pulmonary edema TECHNIQUE: Chest two views COMPARISON: 01/01/2019 portable chest FINDINGS: Heart size appears within normal limits. There is mild tortuosity of the thoracic aorta. There are stable elevation of the right hemidiaphragm. There is been mild decrease in vascular congestion/interstitial edema. There is no dense consolidation, substantial pleural effusion, or pneumothorax identified. There is old fracture deformity of the distal right clavicle noted. IMPRESSION: Mild decrease in mild pulmonary edema. Electronically signed by Mateo Pastor 01/02/2019 6:50 PM
[2019-01-03] MEDS: DUONEB (A & A) INH SCH ×6 (03:07→23:15)
[2019-01-03] MEDS: SOLU-MEDROL IV SCH ×4 (04:55→20:22)
[2019-01-03] MEDS: MIRALAX PO SCH ×2 (08:26→20:22)
[2019-01-03] MEDS: ELIQUIS PO SCH ×2 (08:26→20:22)
[2019-01-03] MEDS: COZAAR PO SCH (08:26)
[2019-01-03] MEDS: TOPROL XL PO SCH (08:26)
[2019-01-03] MEDS: NORVASC PO SCH (08:26)
[2019-01-03] MEDS: LASIX PO SCH (08:26)
[2019-01-03] MEDS: APRESOLINE PO SCH ×3 (08:30→20:22)
[2019-01-03] MEDS ORDERED: NOVOLOG MIX 70/30 SUBQ SCH (16:00)
--- NOTE | 2019-01-03 18:00 | PROGRESS NOTE ---
DATE: 01/03/2019 SUBJECTIVE: Patient has no current complaints. States that she ate a little bit better yesterday, but does note that she does not like the hospital food. PHYSICAL EXAMINATION: Vital Signs: Reviewed. Temperature 97.6 degrees, pulse 65, respiratory rate 18, BP 154/69. General: Patient is awake, alert, currently in no respiratory distress. She is lying flatly in the bed. HEENT: Normocephalic. Neck: Supple. Cardiovascular: Regular rate. No murmurs. Chest: Clear. Abdomen: Soft. Extremities: Moves all extremities. ASSESSMENT: 1. Diabetes with hypoglycemia. She had an episode yesterday, blood sugars down into the 36 and 50 range. She had received her 70/30 yesterday morning, although a lower dose than what she apparently takes at home. She had eaten breakfast prior to receiving that. However, apparently it was too much. 2. Hyperkalemia, resolved. 3. Pulmonary edema, improved. 4. Chronic renal failure. PLAN: The patient still is on Solu-Medrol. We are going to decrease her Solu-Medrol today. We are going to restart her 70/30 as her blood sugars been 200-300 range, although at a much lower dose. She apparently was taking 30 at home twice daily. We are going to start her back on 10 twice daily and continue to observe her blood sugars. Her wheezing is improved today as her chest x-ray has less pulmonary edema. We will continue to follow. cc: Dago Rodriguez MD
[2019-01-03] MEDS: NORCO-10 PO PRN (18:27)
[2019-01-04] MEDS: DUONEB (A & A) INH SCH ×2 (02:52→08:30)
[2019-01-04] MEDS: SOLU-MEDROL IV SCH (05:44)
[2019-01-04] MEDS ORDERED: NS 2,000 ML MISC PRN (06:15)
[2019-01-04] MEDS ORDERED: TIGHT: 0.2 ML/HR FOR DIALYSIS MISC PRN (06:15)
[2019-01-04] MEDS ORDERED: HEPARIN IV PRN (06:15)
[2019-01-04] MEDS: APRESOLINE PO SCH (07:56)
[2019-01-04 07:58] VITALS: BP 148/77
[2019-01-04] MEDS: COZAAR PO SCH (08:02)
[2019-01-04] MEDS: ELIQUIS PO SCH (08:02)
[2019-01-04] MEDS: MIRALAX PO SCH (08:02)
[2019-01-04] MEDS: LASIX PO SCH (08:02)
[2019-01-04] MEDS: NORVASC PO SCH (08:02)
[2019-01-04] MEDS: TOPROL XL PO SCH (08:03)
--- NOTE | 2019-01-04 08:29 | Diag Imaging Result Doc PS360 ---
CHEST-PORTABLE - 01/04/2019 INDICATION: wheezing COMPARISON: 01/02/2019 FINDINGS: Stable cardiomegaly. There is worsening pulmonary vascular congestion. No overt infiltrates or edema. There is some stable faint atelectasis in the right lower lobe. No pneumothorax or pleural effusion. IMPRESSION: Worsening pulmonary vascular congestion. Electronically signed by Edgar Olmos 01/04/2019 8:27 AM
--- NOTE | 2019-01-04 11:26 | NEPHROLOGY PROGRESS NOTE ---
DATE: 01/04/2019 Subjective: pt sitting up at the side of the bed. Voices her wheezing is going away. Objective: vitals. Temperature 97.7, pulse 71, respirations 16, blood pressure 148/77, 02 sat 96% on room air. General: chronic Ill appearing female sitting up in no acute distress but appears to not feel well. HEENT: Normocephalic, atraumatic. Trachea midline. Mucous membranes moist. Erythema to both eyes. Skin: warm and dry. Neck: supple, JVD observed. Cardiovascular: S1, S2, Regular rate, no murmur or gallop. Respiratory: wheezes and crackles to right base posteriorly. Abdomen: soft, tenderness noted to left upper quadrant, nondistended. Bowel sounds present. : non-inspected Extremities: no edema peripherally, right upper arm fistula with palpable pulse Neurological: alert and oriented to person and place. Impression: 1. Chronic kidney disease stage 5D. She will receive her routine hemodialysis today. 2. Blood pressure. In target 3. Fluid volume. Above target. 4. Wheezing. Will repeat chest X-ray today. Remains on inhaled bronchodilator treatments. 5. Medications reviewed. No change. Unable to cannulate today and she was unwilling to have us try again. She can return to her outpatient clinic if discharged. She needs to [facility] as an outpatient. cc: Celso Shepherd MD [facility]TDD
[2019-01-04] MEDS ORDERED: SOLU-MEDROL IV SCH (18:00)
--- NOTE | 2019-01-05 10:09 | DISCHARGE SUMMARY ---
ADMISSION DATE: 12/31/2018 DISCHARGE DATE: 01/04/2019 DISCHARGE DIAGNOSES: 1. Intentional noncompliance. The patient was actually admitted to the hospital because she had missed dialysis. She refused to have dialysis again today. 2. Diabetes with poor home control. 3. Hypoglycemia. This occurred after the patient was restarted on her home dosage of insulin. 4. Hyperkalemia, improved. 5. Hyponatremia, improved. 6. [*]. 7. Hypertension. CONSULTATIONS: Nephrology. PROCEDURES: Hemodialysis. BRIEF HOSPITAL COURSE: The patient is a 58-year-old female who presented to the hospital. She underwent dialysis. Her wheezing and pulmonary edema both improved. On discharge, she is awake, alert. Her wheezing is improved. She did have an episode of hypoglycemia. She was restarted on her home diabetic medication regimen, and then underwent blood sugars down into the 30s and 40s, even after eating a full diet. I suspect that she probably does not watch her intake very closely at home, and that is the reason that when she was on a diabetic diet in the hospital, with her regular home dosing of insulin, she became severely hypoglycemic. We did decrease her insulin from 30 units 3 times a day down to 10 units twice a day, and her blood sugars did improve. They were still elevated, but we did not want to increase much from there. DISPOSITION: Unfortunately today, the patient refused dialysis. She is refusing to stay in the hospital. Discussed with her that she needs to call her dialysis unit and be re-dialyzed as soon as she is willing to do that. Thankfully, she otherwise had an uneventful hospital course. TIME SPENT: Greater than 30 minutes were spent in total care. cc: Dago Rodriguez MD
== END 2019-01-04 10:58 | disposition home or self-care (01) | DRG 640 ==
LOC: SUPCPDRO → ED 03:39 → 1N 08:35 → SUATTDRO 08:35
PROVIDERS: ATTEND Family Medicine

== ENCOUNTER 2019-02-14 22:57 | Inpatient (IN) ==
--- NOTE | 2019-02-14 23:01 | PROVIDER DOCUMENTATION ---
HPI-Respiratory General - General Stated Complaint: SOB Time Seen by Provider: 02/14/19 22:59 Source: patient Allergies/Adverse Reactions: Patient Allergies Allergy/AdvReac Type Severity Reaction Status Date / Time sulfamethoxazole Allergy Severe ANAPHYLAXIS Verified 12/20/18 19:53 [From ] trimethoprim [From ] Allergy Severe ANAPHYLAXIS Verified 12/20/18 19:53 morphine Allergy Intermediate HIVES Verified 12/20/18 19:53 Penicillins Allergy Mild HIVES Verified 12/20/18 19:53 Home Medications: Home Medication List Medication Instructions Recorded Confirmed Last Taken Type Hydrocodone/Acetaminophen [[place] 1 each PO TID PRN 06/17/17 02/14/19 08/18/17 06:00 History 10-325 Tablet] 1 Furosemide [Lasix] 40 mg PO DAILY #30 tab 12/21/18 02/14/19 Unknown Rx Albuterol Sulfate [Ventolin Hfa] 2 puff INH Q6HR PRN 12/31/18 02/14/19 Unknown History Amlodipine Besylate 10 mg PO DAILY PRN 12/31/18 02/14/19 Unknown History Difluprednate [Durezol] 1 drp LEFT EYE BID 12/31/18 02/14/19 Unknown History Losartan Potassium 50 mg PO DAILY 12/31/18 02/14/19 Unknown History Metoprolol Succinate 50 mg PO DAILY 12/31/18 02/14/19 Unknown History Sucroferric Oxyhydroxide [Velphoro] 1 tab PO AC 12/31/18 02/14/19 Unknown History Tizanidine [Zanaflex] 4 mg PO BID PRN 12/31/18 02/14/19 Unknown History Apixaban [Eliquis] 2.5 mg PO BID #60 tab 01/04/19 02/14/19 Unknown Rx Hydralazine [Apresoline] 25 mg PO 0800,1400,2100 #90 tab 01/04/19 02/14/19 Unknown Rx Insulin Novolog 70/30 [Novolog Mix 15 unit SUBQ BID AC #0 insuln.pen 01/04/19 02/14/19 Unknown Rx 70/30] - History of Present Illness-Resp Nature of Presenting Problem: Patient is a 58 year old black female with history of ESRD (followed by Dr. Vieira,receives hemodialysis [facility]THSat). Patient missed dialysis today due to transportation issues. Denies chest pain, productive cough. Review of Systems - Adult - REVIEW OF SYSTEMS - ADULT Constitutional: denies: chills, fever Eyes: reports: no symptoms reported Ears, Nose, Mouth & Throat: reports: no symptoms reported Cardiovascular: reports: orthopnea. denies: chest pain Respiratory: reports: wheezing Gastrointestinal: denies: abdominal pain, nausea, vomiting Genitourinary: denies: dysuria Musculoskeletal: reports: no symptoms reported Integumentary: reports: no symptoms reported Neurological: reports: no symptoms reported Psychiatric: reports: anxiety Endocrine: reports: no symptoms reported Hematologic/Lymphatic: reports: no symptoms reported Allergic/Immunologic: reports: no symptoms reported All Other Systems: Reviewed and Negative Past History - Adult - PAST MEDICAL HISTORY-ADULT Review of Records: reports: Old Records Reviewed, Nursing Assessment Review, Medications Reviewed, Social history reviewed & non-contributory. Major Childhood Illnesses: reports: denies history Cardiovascular: reports: CHF, HTN, hyperlipidemia Respiratory: reports: asthma, COPD Gastrointestinal: reports: GERD Obstetrical/Gynecological: reports: other (post menopausal) Genitourinary: reports: kidney disease Musculoskeletal: reports: other (carpal tunnel syndrome bilaterally) Neurological: reports: denies history Psychiatric: reports: anxiety, schizophrenia Endocrine/Immune: reports: Diabetes Other Conditions: reports: denies history - PRIOR SURGERIES/PROCEDURES Surgical/Procedure History: reports: BTL, orthopedic (extremity) (carpal tunnel bilateral/ R foot), joint replacement (knee), back/neck (back), other (bilateral carpal tunnel release/abdominal surgery) - PRIOR HOSPITALIZATIONS Prior Hospitalizations: reports: for similar symptoms - IMMUNIZATION STATUS Childhood Immunizations: See Nurse Assessment Flu Vaccine: See Nurse Assessment - FAMILY HISTORY Family History: reviewed, not pertinent Physical Exam-General - PHYSICAL EXAM-ADULT Initial Vital Signs Reviewed: Yes - CONSTITUTIONAL General Appearance: alert, obese - EYES Eyes: other (clear) - HEAD, EARS, NOSE, MOUTH & THROAT HENMT: normocephalic/atraumatic, moist mucous membranes - NECK Neck: non-tender, full range of motion, supple - RESPIRATORY Respiratory: decreased breath sounds, rales, wheezing - CARDIOVASCULAR Cardiovascular: regular rate, rhythm - GASTROINTESTINAL (ABDOMEN) Abdominal Exam: normal bowel sounds, non tender, soft - MUSCULOSKELETAL Back Exam: normal inspection, no CVA tenderness Extremity: pedal edema, other (dialysis fistula over right upper arm) - SKIN Integumentary: normal color, normal turgor - NEUROLOGIC Neurologic: grossly normal - PSYCHIATRIC Psych/Mental Status: oriented x 3, anxious - HEART Score HEART Score: History: Slightly Suspicious HEART Score: ECG: Normal HEART Score: Age: 45-65 Years HEART Score: Risk Factors for Atherosclerotic Disease: 1 or 2 Risk Factors HEART Score: Troponin: < or = Normal Limit Total HEART Score:: 2 Progress - PLAN OF CARE/RESULTS Progress/Plan/Lab Results: Vital Signs - 8 hr 02/14/19 22:59 02/14/19 23:34 Temperature 98.8 F Pulse Rate 84 82 Respiratory Rate 21 16 Blood Pressure 228/101 O2 Sat by Pulse Oximetry 97 97 Laboratory Results - last 24 hr 02/14/19 02/14/19 02/14/19 23:33 23:33 23:33 WBC 6.61 RBC 3.26 L Hgb 9.1 L Hct 30.8 L MCV 94.5 MCH 27.9 MCHC 29.5 L RDW Std Deviation 15.7 H Plt Count 194 MPV 11.5 H Immature Gran % (Auto) 0.2 Neut % (Auto) 62.2 Lymph % (Auto) 23.3 [place] % (Auto) 10.4 H Eos % (Auto) 3.3 Baso % (Auto) 0.6 Immature Gran # (Auto) 0.01 Neut # (Auto) 4.11 Lymph # (Auto) 1.54 [place] # (Auto) 0.69 H Eos # (Auto) 0.22 Baso # (Auto) 0.04 Sodium Potassium Chloride Carbon Dioxide Anion Gap BUN Creatinine Estimated GFR/1.73 m2 BUN/Creatinine Ratio Glucose Calculated Osmolality Calcium Total Bilirubin AST ALT Alkaline Phosphatase Troponin T 0.061 Sqb-T-Awygdirxsap Pept 8632 H Total Protein Albumin Globulin Albumin/Globulin Ratio 02/14/19 23:33 WBC RBC Hgb Hct MCV MCH MCHC RDW Std Deviation Plt Count MPV Immature Gran % (Auto) Neut % (Auto) Lymph % (Auto) [place] % (Auto) Eos % (Auto) Baso % (Auto) Immature Gran # (Auto) Neut # (Auto) Lymph # (Auto) [place] # (Auto) Eos # (Auto) Baso # (Auto) Sodium 144 Potassium 5.2 H Chloride 108 H Carbon Dioxide 22 L Anion Gap 15 BUN 40 H Creatinine 7.0 H Estimated GFR/1.73 m2 6 BUN/Creatinine Ratio 6 Glucose 143 H Calculated Osmolality 299 Calcium 8.3 L Total Bilirubin 0.20 AST 21 ALT 9 L Alkaline Phosphatase 64 Troponin T Uae-K-Ejcnbkpwjgh Pept Total Protein 6.4 Albumin 3.7 Globulin 3.0 Albumin/Globulin Ratio 1.0 Orders Category Date Time Status Cardiac Monitoring DIRECTED Care 02/14/19 23:15 Active Saline Loc NOW Care 02/14/19 23:14 Active CHEST-PORTABLE [RAD] Stat Exams 02/14/19 23:13 Taken CBC WITH ELECTRONIC DIFF [HEME] Stat Lab 02/14/19 23:33 Completed CMP [COMPREHENSIVE METABOLIC PANEL] [CHEM] Stat Lab 02/14/19 23:33 Completed TROPONIN T Stat Lab 02/14/19 23:33 Completed bnp [PRO B-NATRIURETIC PEPTIDE] Stat Lab 02/14/19 23:33 Completed Albuterol 2.5MG/Ipratrop 0.5MG [Duoneb (A & A)] Med 02/14/19 23:15 Discontinued 3 ml INH NOW ONE Nitroglycerin Med 02/14/19 23:18 Discontinued 1 inch TOP NOW ONE Aerosol Treatments Routine Oth 02/14/19 23:16 Completed Aerosol Treatments Stat Oth 02/14/19 23:16 Completed Oxygen Device Stat Oth 02/14/19 23:14 Active EKG [EKG] Stat Ther 02/14/19 23:15 Draft Result Diagrams: 02/14/19 23:33 02/14/19 23:33 - EKG 1 Time of EKG reading by physician:: 23:02 EKG Read and Signed by:: Tony Bettencourt Rate: 87 Rhythm: NSR ST Wave: non-specific ST changes Comments: prolonged QT, no STEMI - XRAY 1 XRAY Study: Chest XRAY Interpretation: CHF - CONSULTS/PCP/HOSPITALIST Notification #1 *Consult/PCP/Hospitalist*: Dr. Stevens, hospitalist Time Discussed: 01:15 Consult Disposition: Admit Departure - Departure Date of Disposition Decision: 02/15/19 Time of Disposition Decision: 01:23 DIAGNOSIS: COPD exacerbation, ESRD (end stage renal disease), Uncontrolled hypertension CHF (congestive heart failure) Qualifiers: Heart failure type: unspecified Heart failure chronicity: unspecified Qualified Code(s): I50.9 - Heart failure, unspecified Disposition: ADMITTED INPATIENT 09 Certified Medical Emergency: Emergent Condition: Stable Referrals and Follow-Ups: None,PCP [Primary Care Provider] - - Critical Care Note This patient required my direct & personal management of CC.: No Attestation - Physician/ JONAS Attestation Patient care was provided by Advanced Practice Provider:: No The physician spent face to face time with patient:: Yes Advanced Practice Provider documentation review:: Supervising physician onsite and consulted in the evaluation and care of this patient. The physician did have a face to face encounter with the patient.
[2019-02-14] MEDS ORDERED: DUONEB (A & A) INH ONE (23:15)
[2019-02-14] MEDS ORDERED: NITROGLYCERIN TOP ONE (23:18)
[2019-02-14 23:39] LABS: BASO# 0.04 X1000 (0.0-0.2); BASO% 0.6 % (0.0-0.8); EOS# 0.22 X1000 (0.0-0.7); EOS% 3.3 % (0.0-10.0); HEMATOCRIT 30.8 % (37.0-47.0); HEMOGLOBIN 9.1 g/dL (12.0-16.0); IMM GRAN# 0.01 X1000 (0.0-0.04); IMM GRAN% 0.2 % (0.0-0.5); LYMPH# 1.54 X1000 (1.2-3.4); LYMPH% 23.3 % (20.5-51.1); MCH 27.9 PG (27-31); MCHC 29.5 g/dL (33-37); MCV 94.5 FL (81-99); MONO# 0.69 X1000 (0.11-0.59); MONO% 10.4 % (1.7-9.3); MPV 11.5 FL (7.4-10.4); NEUT# 4.11 X1000 (1.4-6.5); NEUT% 62.2 % (42.2-75.2); PLT 194 X1000 (130-400); RBC 3.26 XMIL (4.2-5.4); RDW 15.7 % (11.5-14.5); WBC 6.61 X1000 (4.8-10.8)
[2019-02-15 00:05] LABS: ALBUMIN 3.7 g/dL (3.5-5.0); CALCIUM 8.3 mg/dL (8.8-10.2); POTASSIUM 5.2 mmol/L (3.5-5.1); TOTAL BILIRUBIN 0.2 mg/dL (0.20-1.00); TOTAL PROTEIN 6.4 g/dL (6.3-8.3)
--- NOTE | 2019-02-15 00:08 | ED EKG INTERP ---
This chart was entered by Karma Rosenberg Scribe, acting as scribe for Tony Bettencourt MD. EKG Interpretation - EKG Time of EKG reading by physician:: 23:02 EKG Read and Signed by:: Tony Bettencourt EKG Interpretation (*Must complete 3 of following elements*): Abnormal (rate 87 NSR L anterior fasicular blobk Nonspecific T wave abnormality Prolonged QT) Attestation - Physician/ JONAS Attestation Patient care was provided by Advanced Practice Provider:: No The physician spent face to face time with patient:: Yes Advanced Practice Provider documentation review:: Supervising physician onsite and consulted in the evaluation and care of this patient. The physician did have a face to face encounter with the patient. This chart was documented by the indicated scribe, (Karma Rosenberg Scribe) and accurately reflects the services I performed and decisions made by me, Tony Bettencourt MD, as attested by the provider's signature.
--- NOTE | 2019-02-15 00:47 | EKG Report ---
Test Performed on : 02/14/2019 11:01:56 PM Test Reason : pain Blood Pressure : / mmHG Vent. Rate : 087 BPM Atrial Rate : 087 BPM P-R Int : 168 ms QRS Dur : 092 ms QT Int : 406 ms P-R-T Axes : 061 -51 009 degrees QTc Int : 488 ms Normal sinus rhythm. Left anterior fascicular block Nonspecific T wave abnormality Prolonged QT Abnormal ECG When compared with ECG of 31-DEC-2018 05:34, (Unconfirmed) Nonspecific T wave abnormality, worse in Inferior leads Nonspecific T wave abnormality, worse in Lateral leads Unconfirmed Result
[2019-02-15] MEDS ORDERED: NITROGLYCERIN TOP ONE (01:32)
[2019-02-15] MEDS ORDERED: NITROGLYCERIN ONE (01:32)
--- NOTE | 2019-02-15 01:38 | EKG Report ---
Test Performed on : 02/15/2019 01:36:34 AM Test Reason : pain Blood Pressure : / mmHG Vent. Rate : 085 BPM Atrial Rate : 085 BPM P-R Int : 168 ms QRS Dur : 088 ms QT Int : 414 ms P-R-T Axes : 065 -49 002 degrees QTc Int : 492 ms Normal sinus rhythm. Left anterior fascicular block Nonspecific ST and T wave abnormality Prolonged QT Abnormal ECG When compared with ECG of 14-FEB-2019 23:01, (Unconfirmed) No significant change was found Unconfirmed Result
[2019-02-15] MEDS: DUONEB (A & A) INH SCH ×4 (03:22→23:26)
[2019-02-15] MEDS ORDERED: ZANAFLEX PO PRN (04:12)
[2019-02-15] MEDS ORDERED: DUONEB (A & A) INH PRN (04:31)
--- NOTE | 2019-02-15 05:12 | HISTORY AND PHYSICAL ---
PRIMARY CARE PHYSICIAN: Dr. Ciro Fall. CHIEF COMPLAINT: Shortness of breath and not feeling well x1 day. Apparently, she also missed dialysis. HISTORY OF PRESENTING ILLNESS: A 58-year-old female with a history of end-stage renal disease on renal dialysis Friday, Friday, Friday, CHF, hypertension, COPD, and diabetes mellitus type 2, who had presented to our emergency department due to patient having worsening shortness of breath, and not feeling well. She states that because of the holiday schedule her dialysis session changed, and she missed it. She was having difficulty breathing. She was initially seen at [facility]. Due to lack of subspecialist care there, she was transferred to [facility] for further evaluation and management. At the time of my examination, she denied any headache, fever, chills, chest pain, hemoptysis, or melena, but complained of shortness of breath and not feeling well. PAST MEDICAL HISTORY: Includes CHF, diastolic dysfunction, hypertension, end-stage renal disease, COPD, hyperlipidemia and diabetes mellitus type 2. PAST SURGICAL HISTORY: Bilateral carpal tunnel surgery, right foot surgery, and right upper extremity AV graft. ALLERGIES: Bactrim, morphine, and penicillin. CURRENT MEDICATIONS: 1. Albuterol inhaler 2 puffs inhalation q.6 hours. 2. NovoLog mix 70/30 50 units subcutaneous b.i.d. 3. Norvasc 10 mg p.o. daily. 4. Eliquis 2.5 mg p.o. b.i.d. 5. Lasix 40 mg p.o. daily. 6. Hydralazine 25 mg p.o. t.i.d. 7. [place] 10 one p.o. t.i.d. 8. Losartan 50 mg p.o. daily. 9. Metoprolol 50 mg p.o. daily. 10. Tizanidine 4 mg p.o. b.i.d. SOCIAL HISTORY: A 40 pack year history of smoking. She denies any history of alcohol or illicit drug use. FAMILY HISTORY: No history of coronary disease. REVIEW OF SYSTEMS: Fourteen point review of systems listed as in HPI. Other systems negative. PHYSICAL EXAMINATION: GENERAL: Cooperative friendly female. She is resting more comfortably now. VITAL SIGNS: Temperature 98.8 degrees, pulse 84, respirations 21, and blood pressure 228/101. HEENT: Atraumatic, normocephalic. Extraocular movements intact. PERRLA. NECK: No masses. CHEST: Bibasilar rales. CARDIOVASCULAR: Regular rate and rhythm. ABDOMEN: Soft. Positive bowel sounds. EXTREMITIES: No edema. NEUROLOGIC: She is awake, alert, and oriented x3. : No bladder distention. SKIN: Warm. LABORATORIES AND STUDIES: WBC 6.61, hemoglobin 9.1, hematocrit 30.8 and platelets 194,000. Sodium 144, potassium 5.2, chloride 108, CO2 22, BUN is 40, creatinine 7.0, glucose is 117, and proBNP is 8632. ASSESSMENT: A 58-year-old female with a history of end-stage renal disease, hypertension, COPD, diabetes mellitus type 2, and CHF who had presented to emergency department with 1-day history of having worsening shortness of breath. The patient apparently missed her dialysis session due to changes scheduled for the holidays. She was seen initially in [facility] due to lack of subspecialist care. She was transferred to [facility] for further evaluation and management. 1. Suspected volume overload from missing dialysis. 2. End-stage renal disease. 3. CHF diastolic dysfunction. 4. Chronic obstructive pulmonary disease. 5. Hypertension. 6. Diabetes mellitus type 2. PLAN: 1. We will admit patient to medical floor with telemetry. 2. We will consult Nephrology for dialysis. 3. Continue patient on supplemental oxygen. 4. We will continue with DuoNeb's. 5. We will monitor blood pressure closely. Resume antihypertensive agents. 6. We will monitor blood glucose, and put patient on sliding scale insulin regimen. 7. The patient is already on Eliquis, and this will suffice for DVT prophylaxis. 8. We will continue to follow and reassess. Make further recommendation based on patient's clinical course. cc: Remington Stevens MD
[2019-02-15] MEDS: NORCO-10 PO PRN ×2 (06:35→20:14)
[2019-02-15] MEDS: HUMULIN R SUBQ SCH ×4 (06:40→20:24)
--- NOTE | 2019-02-15 06:42 | Diag Imaging Result Doc PS360 ---
CHEST-PORTABLE - 02/14/2019 INDICATION: sob COMPARISON: 01/04/2019 FINDINGS: There are some hazy linear opacities in the lung bases suggesting atelectasis or fibrosis. No new or focal infiltrates. Heart size and pulmonary vascularity is top normal. No pneumothorax or pleural effusion. IMPRESSION: Mild linear atelectasis in the lung bases. No acute process. Electronically signed by Edgar Olmos 02/15/2019 6:40 AM
[2019-02-15] MEDS ORDERED: SUCROFERRIC OXYHYDROXIDE PO SCH (07:00)
[2019-02-15] MEDS ORDERED: NS 2,000 ML MISC PRN (07:59)
[2019-02-15] MEDS ORDERED: TIGHT: 0.2 ML/HR FOR DIALYSIS MISC PRN (07:59)
[2019-02-15] MEDS ORDERED: HEPARIN IV PRN (07:59)
[2019-02-15] MEDS ORDERED: DIFLUPREDNATE LEFT EYE SCH (09:00)
[2019-02-15] MEDS: APRESOLINE PO SCH ×3 (11:39→20:08)
[2019-02-15] MEDS: LASIX PO SCH (12:02)
[2019-02-15] MEDS: NORVASC PO SCH (12:02)
[2019-02-15] MEDS: ELIQUIS PO SCH ×2 (12:02→20:08)
[2019-02-15] MEDS: COZAAR PO SCH (12:02)
[2019-02-15] MEDS: TOPROL XL PO SCH (12:03)
--- NOTE | 2019-02-15 15:03 | Diag Imaging Result Doc PS360 ---
EXAM: CHEST-2 VIEWS HISTORY: assess pulmonary edema TECHNIQUE: Two views COMPARISON: 02/14/2019 FINDINGS: The lungs are well expanded. The heart is not enlarged. The vessels are mildly distended. There are no infiltrates. No pleural effusions. IMPRESSION: Persistent mild to moderate pulmonary edema Electronically signed by Cody Emery 02/15/2019 3:01 PM
[2019-02-15] MEDS ORDERED: DUONEB (A & A) INH SCH (15:31)
[2019-02-15] MEDS ORDERED: LASIX IV ONE ×2 (15:32→20:00)
[2019-02-15] MEDS: SOLU-MEDROL IV SCH ×2 (16:15→23:08)
--- NOTE | 2019-02-15 16:32 | PROGRESS NOTE ---
DATE: 02/15/2019 INTERVAL HISTORY: Ms. Lara was admitted for shortness of breath and missing hemodialysis and was found to be in hypertensive emergency. She received dialysis today. She states she could not complete the dialysis because she had muscle cramps. SUBJECTIVE: Currently, Ms. Lara is complaining of feelings of shortness of breath. She denies any chest pain or palpitation. She denies nausea, vomiting, or abdominal pain. She states she recently had an infection in the eye which required drainage. VITAL SIGNS: Temperature 97.9 degrees, pulse 75, respiratory rate 18, blood pressure 170/60. She is saturating 100% on 2 L nasal cannula. PHYSICAL EXAMINATION: HEENT: Oral cavity is moist. Respiratory: She has diffuse end- expiratory wheezes bilateral lungs with inspiratory crackles in infrascapular region. Cardiovascular: S1, S2 normal. Regular. No murmur, rub, or gallop. Abdomen: Obese, soft, nontender. No jugular venous distention. She has bilateral lower extremity edema. Neurologic: She is alert and oriented x3. LABS: No CBC today. BMP yesterday had hyperkalemia. She currently has hyperglycemia. No new microbiological or data except chest x-ray which suggests persistent [id number]-aq-lygkcxaj pulmonary edema. ASSESSMENT AND PLAN: 1. Volume overload for missing hemodialysis leading to shortness of breath. This is in the setting of acute pulmonary edema and acute chronic obstructive pulmonary disease exacerbation. She received dialysis session. Appreciate nephrology recommendation. I will give her 2 doses of intravenous Lasix to help with her shortness of breath and pulmonary edema. 2. Acute chronic obstructive pulmonary disease exacerbation with ongoing tobacco abuse. She smokes about 7 to 8 cigarettes per day. Smoking cessation was counseled. I will start her on albuterol ipratropium nebulization every 4 hours and intravenous steroids. 3. Essential hypertension and hypertensive emergency on presentation. This could be in the setting of missed hemodialysis. I would continue her on her home hydralazine, losartan and amlodipine as well as home metoprolol. 4. Previous history of coronary atherosclerosis by CT scan, type 2 diabetes mellitus. I will keep her on sliding scale insulin. 5. Others. The patient is listed to be taking Eliquis the indication of which is not entirely clear to me. She previously had history of heart failure with preserved ejection fraction. Echocardiogram in 2019, however, had ejection fraction of 60%. DISPOSITION: I will monitor the patient on the floor. Plan of care discussed with her. Her questions have been answered. cc: Suman White MD
[2019-02-15] MEDS ORDERED: BENADRYL PO PRN (22:07)
[2019-02-16] MEDS: DUONEB (A & A) INH SCH ×6 (03:50→23:44)
[2019-02-16] MEDS: NORCO-10 PO PRN (05:57)
[2019-02-16] MEDS: HUMULIN R SUBQ SCH ×4 (06:00→21:29)
[2019-02-16 06:29] LABS: CALCIUM 8.5 mg/dL (8.8-10.2); CREATININE 5.8 mg/dL (0.5-0.9); POTASSIUM 5.1 mmol/L (3.5-5.1)
[2019-02-16 06:31] LABS: BASO# 0.01 X1000 (0.0-0.2); BASO% 0.2 % (0.0-0.8); HEMATOCRIT 34.3 % (37.0-47.0); HEMOGLOBIN 10.3 g/dL (12.0-16.0); LYMPH# 0.41 X1000 (1.2-3.4); LYMPH% 6.9 % (20.5-51.1); MCH 28.3 PG (27-31); MCV 94.2 FL (81-99); MONO# 0.06 X1000 (0.11-0.59); MPV 11.9 FL (7.4-10.4); NEUT# 5.44 X1000 (1.4-6.5); NEUT% 91.9 % (42.2-75.2); PLT 187 X1000 (130-400); RBC 3.64 XMIL (4.2-5.4); RDW 15.6 % (11.5-14.5); WBC 5.92 X1000 (4.8-10.8)
--- NOTE | 2019-02-16 07:22 | EKG Report ---
Test Performed on : 02/16/2019 06:19:20 AM Test Reason : Follow up QTc Blood Pressure : / mmHG Vent. Rate : 086 BPM Atrial Rate : 086 BPM P-R Int : 164 ms QRS Dur : 082 ms QT Int : 420 ms P-R-T Axes : 065 -21 -16 degrees QTc Int : 502 ms Normal sinus rhythm. Possible Anterior infarct , age undetermined Prolonged QT Abnormal ECG Confirmed by Arcenio TORRES, Bar ([id number]) on 02/18/2019 10:31:29 AM
[2019-02-16] MEDS ORDERED: HEPARIN IV PRN (07:27)
[2019-02-16] MEDS ORDERED: NS 2,000 ML MISC PRN (07:27)
[2019-02-16] MEDS ORDERED: TIGHT: 0.2 ML/HR FOR DIALYSIS MISC PRN (07:27)
[2019-02-16 08:30] LABS: BANDS 2 % (0-1); LYMPHS 4 % (21-51); SEGS 94 % (42-75)
[2019-02-16] MEDS: TOPROL XL PO SCH (08:57)
[2019-02-16] MEDS: LASIX PO SCH (08:57)
[2019-02-16] MEDS: NORVASC PO SCH (08:57)
[2019-02-16] MEDS: ELIQUIS PO SCH ×2 (08:57→21:29)
[2019-02-16] MEDS: APRESOLINE PO SCH ×3 (08:57→21:29)
[2019-02-16] MEDS: SOLU-MEDROL IV SCH ×3 (08:57→23:21)
[2019-02-16] MEDS: COZAAR PO SCH (08:57)
--- NOTE | 2019-02-16 11:02 | NEPHROLOGY CONSULTATION ---
DATE: 02/15/2019 REASON FOR CONSULTATION: Congestive heart failure and ESRD. HISTORY OF PRESENT ILLNESS: Ms Lara is a 58-year-old woman who receives chronic outpatient hemodialysis at a the local [facility]. She missed her treatment on the morning of admission and came to the emergency room because of worsening shortness of breath. She did not describe chills, fever, sweats, night sweats, etc. She describes abdominal pain but no nausea or vomiting. PAST MEDICAL HISTORY: As above. She also has a history of diabetes, hypertension, hyperlipidemia, COPD. HOME MEDICATIONS: Include albuterol, NovoLog, Norvasc, Eliquis, furosemide, hydralazine, [place], losartan, metoprolol, tizanidine. ALLERGIES: Bactrim, morphine, penicillin. SOCIAL HISTORY: Heavy tobacco use. History of axis 1 diagnosis. FAMILY HISTORY/REVIEW OF SYSTEMS: Otherwise noncontributory. PHYSICAL EXAMINATION: Vital Signs: Blood pressure 176/67, heart rate 79, respiration 19, afebrile. General: No acute distress. Skin: Warm and dry. Conjunctivae are pink. Pupils are equal. Neck: Neck veins are not distended. Trachea is midline. Heart: Regular. PMI nondisplaced. Lungs: Have diffuse wheezing and few scattered crackles. Abdomen: Soft, nontender. Bowel sounds are present. Extremities: Have no edema, clubbing or cyanosis. IMPRESSION: 1. Acute respiratory impairment. Chest x-ray with pulmonary edema. She had dialysis earlier in the day on Friday the . We will repeat again on Friday. Otherwise electrolytes and acid- base are in target. 2. Blood pressure is above target but we will reassess this after her volume status is improved. cc: MD ANNEMARIE BellD
--- NOTE | 2019-02-16 17:53 | PROGRESS NOTE ---
DATE: 02/16/2019 SUBJECTIVE: The patient is on dialysis. She states that she is still hungry. She ate all of her breakfast and her lunch. She states that she still feels short of breath. OBJECTIVE: Vital Signs: Temperature 98 degrees, blood pressure 149/92, heart rate 79, respirations 18, O2 saturation 100% on 2 L nasal cannula. General: This is a chronically ill- appearing elderly female lying in bed in no acute distress. Heart: S1, S2 normal. Regular rate and rhythm. Lungs: Diffuse rhonchi and wheezes in both lung alexis. Abdomen: Positive bowel sounds. Soft, nontender, nondistended. Extremities: No edema. No cyanosis. Neurologic: The patient is alert and oriented x4. LABORATORY DATA: White blood cell count 5.9, hemoglobin 10, hematocrit 34, platelets 187,000. Sodium 138, potassium 5.1, chloride 96, CO2 23, BUN 39, creatinine 5.8, glucose 277. ASSESSMENT AND PLAN: 1. Volume overload with pulmonary edema. The patient is undergoing dialysis today. Further management as per the university relations director. 2. Chronic kidney disease stage 5. Management as per the university relations director. 3. Hypertension. Continue on the current antihypertensive regimen. 4. Tobacco dependence. The patient has been counseled about smoking cessation. 5. Chronic obstructive pulmonary disease exacerbation. Continue with bronchodilator therapy, IV steroids and supplemental oxygen. 6. Uncontrolled insulin-dependent diabetes mellitus. We will restart the NovoLog 70/30. Continue with sliding scale insulin. 7. Disposition: We will consult physical therapy. cc: Paige Rodrigues MD MTDD
[2019-02-17] MEDS: DUONEB (A & A) INH SCH ×6 (03:34→22:41)
[2019-02-17 06:00] LABS: HEMATOCRIT 32.6 % (37.0-47.0); HEMOGLOBIN 9.9 g/dL (12.0-16.0); MCHC 30.4 g/dL (33-37); MCV 95.6 FL (81-99); MPV 12.3 FL (7.4-10.4); RBC 3.41 XMIL (4.2-5.4); RDW 15.5 % (11.5-14.5); WBC 10.56 X1000 (4.8-10.8)
[2019-02-17] MEDS: NOVOLOG MIX 70/30 SUBQ SCH ×2 (06:01→16:02)
[2019-02-17] MEDS: HUMULIN R SUBQ SCH ×4 (06:02→20:41)
[2019-02-17 07:01] LABS: ALBUMIN 3.6 g/dL (3.5-5.0); CALCIUM 8.1 mg/dL (8.8-10.2); CREATININE 7.1 mg/dL (0.5-0.9); PHOSPHORUS 5.7 mg/dL (2.7-4.5)
[2019-02-17] MEDS ORDERED: ALBUTEROL 0.5% INH CONC FOR HYPERKALEMIA INH ONE (08:17)
[2019-02-17] MEDS ORDERED: HUMULIN R IV ONE (08:17)
[2019-02-17] MEDS: APRESOLINE PO SCH ×3 (08:58→20:40)
[2019-02-17] MEDS: NORVASC PO SCH (08:58)
[2019-02-17] MEDS: COZAAR PO SCH (08:58)
[2019-02-17] MEDS: TOPROL XL PO SCH (08:58)
[2019-02-17] MEDS: ELIQUIS PO SCH ×2 (08:59→20:40)
[2019-02-17] MEDS: LASIX PO SCH (08:59)
[2019-02-17] MEDS: SODIUM BICARBONATE 8.4% IV ONE ×2 (08:59→12:25)
[2019-02-17] MEDS: NORCO-10 PO PRN ×2 (09:05→20:40)
[2019-02-17] MEDS: SOLU-MEDROL IV SCH ×3 (09:08→23:34)
[2019-02-17] MEDS: LOKELMA POWDER PACKET PO SCH (11:29)
--- NOTE | 2019-02-17 17:31 | PROGRESS NOTE ---
DATE: 02/17/2019 SUBJECTIVE: The patient states that she feels okay today. No acute events noted overnight. OBJECTIVE: Vital Signs: Temperature 98.1 degrees, blood pressure 129/58, heart rate 77, respirations 20, and O2 saturation os 97% on 2 L nasal cannula home. Intake. 1.2 L. General: This is an elderly female lying in bed in no acute distress. Heart: S1, S2 normal. Regular rate and rhythm. Neck: +JVD Lungs: Diffuse expiratory wheezes. Abdomen: Positive bowel sounds. Soft, nontender, nondistended. Extremities: 1+ edema in both legs. Neurologic: The patient is alert and oriented x4. LABORATORIES: White blood cell count 10, hemoglobin 9.9, hematocrit 32, platelets 199,000. Sodium 131, potassium 4.9, chloride 93, CO2 of 20, BUN 69, creatinine 7.1, glucose 121. ASSESSMENT AND PLAN: 1. Volume overload with pulmonary edema. The patient continues to have jugular venous distention and pulmonary edema on x-ray. This will be addressed during the patient's scheduled dialysis sessions. 2. Acute chronic obstructive pulmonary disease exacerbation. Continue with steroids, bronchodilator therapy, and supplemental oxygen. 3. Hyperkalemia. Will treat today. 4. Tobacco dependence. The patient has been counseled about smoking cessation. 5. Chronic kidney disease stage 5D. Management as per the switching operator. 6. Hypertension. Continue on the current antihypertensive regimen. 7. Uncontrolled insulin-dependent diabetes mellitus. Worse due to high dose steroids. Continue on NovoLog 70/30 and sliding scale insulin. 8. Continue with physical therapy. cc: Paige Rodrigues MD MTDRichard
[2019-02-17] MEDS: NICODERM PATCH TD SCH (20:48)
[2019-02-18] MEDS: ZOFRAN IV PRN ×2 (00:15→19:04)
[2019-02-18] MEDS: DUONEB (A & A) INH SCH ×5 (03:20→19:00)
--- NOTE | 2019-02-18 06:37 | Diag Imaging Result Doc PS360 ---
CHEST-1 VIEW - 02/18/2019 INDICATION: pulmonary edema COMPARISON: 02/15/2019 FINDINGS: Lung volumes are much lower. There is nonspecific accentuation of central interstitial infiltrates or atelectasis. Heart size is borderline. No significant pleural effusion. IMPRESSION: Nonspecific findings. Electronically signed by Edgar Olmos 02/18/2019 6:35 AM
[2019-02-18] MEDS: NOVOLOG MIX 70/30 SUBQ SCH ×2 (06:39→18:03)
[2019-02-18] MEDS: HUMULIN R SUBQ SCH ×4 (06:39→20:43)
[2019-02-18] MEDS ORDERED: TIGHT: 0.2 ML/HR FOR DIALYSIS MISC PRN (06:49)
[2019-02-18] MEDS ORDERED: HEPARIN IV PRN (06:49)
[2019-02-18] MEDS ORDERED: NS 2,000 ML MISC PRN (06:49)
[2019-02-18 08:49] LABS: ALBUMIN 3.9 g/dL (3.5-5.0); CALCIUM 7.9 mg/dL (8.8-10.2); CREATININE 8.2 mg/dL (0.5-0.9); PHOSPHORUS 7.6 mg/dL (2.7-4.5); POTASSIUM 7.1 mmol/L (3.5-5.1)
--- NOTE | 2019-02-18 11:10 | NEPHROLOGY PROGRESS NOTE ---
DATE: 02/18/2019 SUBJECTIVE: She is complaining of wheezing and shortness of breath this morning. OBJECTIVE: Vital Signs: Blood pressure 146/62, heart rate 71, respirations 18, afebrile. Intake 1.3 L. General: No acute distress. Skin: Warm and dry. Neck: Neck veins are not visible when she is lying flat. Heart: Regular. Lungs: Equal, with prolonged expiratory phase and wheezing. Abdomen: Soft, nontender. Bowel sounds are present. Extremities: No edema, clubbing, or cyanosis. IMAGING: Chest x-ray with central interstitial infiltrates that are nonspecific low volumes overall. IMPRESSION: Chronic kidney disease 5D. Potassium is 7.1 this morning. She is wheezing, and it is not clear if this is volume related. Her exam does not really support significant volume overload. A 2-potassium bath today, 3.5 hours, 3 to 4 liters ultrafiltration as blood pressure allows, and re-evaluate symptoms thereafter. Repeat tomorrow if necessary. cc: Celso Shepherd MD
[2019-02-18] MEDS: APRESOLINE PO SCH ×3 (13:12→20:47)
[2019-02-18] MEDS: SOLU-MEDROL IV SCH ×2 (13:14→18:01)
[2019-02-18] MEDS: ELIQUIS PO SCH ×2 (13:15→20:47)
[2019-02-18] MEDS: COZAAR PO SCH (13:15)
[2019-02-18] MEDS: TOPROL XL PO SCH (13:16)
[2019-02-18] MEDS: LASIX PO SCH (13:16)
[2019-02-18] MEDS: NICODERM PATCH TD SCH (13:16)
[2019-02-18] MEDS: NORVASC PO SCH (13:17)
[2019-02-18] MEDS: LOKELMA POWDER PACKET PO SCH (13:17)
[2019-02-18] MEDS: NORCO-10 PO PRN (15:13)
--- NOTE | 2019-02-18 17:00 | PROGRESS NOTE ---
DATE: 02/18/2019 SUBJECTIVE: The patient is sitting at the edge of the bed. She states that she is really hungry. She states that her shortness of breath has improved. OBJECTIVE: Vital Signs: Temperature 98.3 degrees, blood pressure 146/62, heart rate 71, respirations 18, O2 saturations 100% on room air. General: This is a chronically ill-appearing elderly female sitting at the edge of the bed in no acute distress. Heart: S1, S2 normal. Regular rate and rhythm. Lungs: Mild expiratory wheezes. Abdomen: Positive bowel sounds. Soft, nontender, nondistended. Extremities: No edema. No cyanosis. Neurologic: The patient is alert and oriented x4. LABORATORY DATA: Sodium 133, potassium 7.1, chloride 91, CO2 21, BUN 96, creatinine 8.2, glucose 326. Chest x-ray shows interstitial infiltrates and/or atelectasis. ASSESSMENT AND PLAN: 1. Volume overload with pulmonary edema. Improved. The patient underwent dialysis today. 2. Acute chronic obstructive pulmonary disease exacerbation. Improved. We will transition the patient to a prednisone taper. Continue with bronchodilator therapy. 3. Chronic kidney disease stage 5. 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 4. Hypertension. Continue on the current antihypertensive regimen. 5. Poorly controlled insulin-dependent diabetes mellitus. Continue on the current insulin regimen. 6. Hyperkalemia. This will be addressed during dialysis. 7. Deep vein thrombosis prophylaxis. Continue on Eliquis. 8. Disposition. The patient was noted to have normal oxygen saturations on room air. She does not qualify for home oxygen. We will plan to discharge the patient home tomorrow. cc: Paige Rodrigues MD
[2019-02-19] MEDS ORDERED: D50W SYRINGE IV ONE (00:07)
[2019-02-19] MEDS: DUONEB (A & A) INH SCH ×4 (00:43→11:19)
[2019-02-19] MEDS: HUMULIN R SUBQ SCH (06:00)
[2019-02-19 08:12] VITALS: BP 140/62
[2019-02-19] MEDS ORDERED: PREDNISONE PO SCH (09:00)
[2019-02-19] MEDS: LASIX PO SCH (09:44)
[2019-02-19] MEDS: NORVASC PO SCH (09:44)
[2019-02-19] MEDS: APRESOLINE PO SCH (09:44)
[2019-02-19] MEDS: TOPROL XL PO SCH (09:44)
[2019-02-19] MEDS: COZAAR PO SCH (09:44)
[2019-02-19] MEDS: ELIQUIS PO SCH (09:44)
[2019-02-19] MEDS: NORCO-10 PO PRN (09:48)
--- NOTE | 2019-02-19 13:56 | NEPHROLOGY PROGRESS NOTE ---
DATE: 02/19/2019 SUBJECTIVE: She is sitting up on the side of her bed hoping for discharge today. No shortness of breath, nausea or vomiting. OBJECTIVE: Vital Signs: Blood pressure 140/62, heart rate 69, respiration 18, afebrile. General: No acute distress. Skin: Warm and dry. Neck: Neck veins are not visible in the erect position. Heart: Regular. No gallops. Lungs: Equal, a few scattered expiratory wheezes. Abdomen: Soft, nontender. Bowel sounds present. Extremities: 1+ edema. No clubbing or cyanosis. IMPRESSION: Chronic kidney disease 5D. She had her last dialysis treatment yesterday. She has plans to go to the clinic on Friday and so we will allow her to proceed with that plan. No dialysis today. Her potassium was not rechecked after her dialysis was completed yesterday. It was ordered but it I believe she declined to have it done. cc: Celso Shepherd MD
[2019-02-19] MEDS: NICODERM PATCH TD SCH (14:20)
--- NOTE | 2019-03-02 11:58 | DISCHARGE SUMMARY ---
ADMISSION DATE: 02/17/2019 DISCHARGE DATE: 02/19/2019 FINAL DISCHARGE DIAGNOSES: 1. Volume overload with pulmonary edema. 2. Severe hyperkalemia. 3. Acute chronic obstructive pulmonary disease exacerbation. 4. Chronic kidney disease stage 5 on hemodialysis. 5. Hypertension. 6. Poorly controlled insulin-dependent diabetes mellitus. 7. Anemia of chronic disease. 8. Hypertension. CONSULTATIONS: Nephrology consultation with Dr. Shepherd. HOSPITAL COURSE: Ms. Lara is a 58-year-old female with a history of multiple medical problems who presented with a chief complaint of shortness of breath and wheezing. On admission, a chest x-ray was done that revealed atelectasis in the lung bases, but no acute process. The patient was diagnosed with an acute COPD exacerbation and volume overload. The patient had missed her regularly scheduled dialysis appointment. The patient was admitted to the hospitalist service and Nephrology was consulted. The patient was taken for dialysis to address the volume status. The patient was started on IV steroids, bronchodilator therapy antibiotics and supplemental oxygen. Slowly over the course of the hospitalization the patient's respiratory status improved. The patient underwent dialysis on a routine schedule as directed by Dr. Shepherd. The patient was eventually weaned off of supplemental oxygen. The patient did have elevated potassium during the hospitalization and that was treated during the patient's dialysis sessions. On 02/19/2019, the patient was noted to be stable for discharge. DISCHARGE MEDICATIONS: 1. Prednisone taper use as directed. 2. Spiriva 18 mcg inhaled daily. 3. Advair 1 puff inhaled twice a day. 4. DuoNeb 3 mL inhaled every 4 hours p.r.n. 5. Albuterol inhaler 2 puffs inhaled 4 times a day. 6. [place] 10/325 one tab oral 3 times a day p.r.n. for pain. 7. Toprol-XL 50 mg oral daily. 8. Velphoro 1 tablet oral before meals. 9. Zanaflex 4 mg oral twice a day p.r.n. 10. Losartan 50 mg oral daily. 11. Norvasc 10 mg oral daily. 12. NovoLog mix 70/30 15 units subcutaneous twice daily. 13. Apresoline 25 mg oral 3 times a day. 14. Eliquis 2.5 mg oral twice a day. 15. Lasix 40 mg p.o. daily. DISCHARGE DIET: Renal diabetic diet. ACTIVITY: As tolerated. FOLLOWUP INSTRUCTIONS: The patient will need to follow up with Dr. Shepherd as scheduled for her routine dialysis appointment. cc: Paige Rodrigues MD
== END 2019-02-19 14:22 | disposition home or self-care (01) | DRG 291 ==
LOC: 1N 22:57 → P.ED 22:57 → OBSVTOIN 02-15 02:31 → SUATTDRO 02-15 02:31
PROVIDERS: ATTEND Internal Medicine

== ENCOUNTER 2019-02-22 19:41 | Inpatient (IN) ==
--- NOTE | 2019-02-22 21:06 | Diag Imaging Result Doc PS360 ---
EXAM: CHEST-PORTABLE 02/22/2019 HISTORY: SOB TECHNIQUE: Erect AP portable at 2043 COMMENT: The chest is not as well-expanded as on 02/20/2019. The coarse atelectatic change in the right lower lobe and the opacity in the costophrenic angle region of the left base have apparently resolved. IMPRESSION: Improved bibasilar atelectasis versus pneumonia. Electronically signed by Saúl Castillo 02/22/2019 9:03 PM
[2019-02-22 22:01] LABS: BASO# 0.02 X1000 (0.0-0.2); BASO% 0.3 % (0.0-0.8); EOS# 0.22 X1000 (0.0-0.7); EOS% 3.3 % (0.0-10.0); HEMATOCRIT 29.8 % (37.0-47.0); HEMOGLOBIN 8.9 g/dL (12.0-16.0); IMM GRAN# 0.02 X1000 (0.0-0.04); IMM GRAN% 0.3 % (0.0-0.5); LYMPH% 21.1 % (20.5-51.1); MCH 28.1 PG (27-31); MCHC 29.9 g/dL (33-37); MONO# 0.56 X1000 (0.11-0.59); MONO% 8.4 % (1.7-9.3); MPV 11.7 FL (7.4-10.4); NEUT# 4.42 X1000 (1.4-6.5); NEUT% 66.6 % (42.2-75.2); PLT 235 X1000 (130-400); RBC 3.17 XMIL (4.2-5.4); WBC 6.64 X1000 (4.8-10.8)
[2019-02-22 23:00] LABS: ALB/GLOB RATIO 1.4; ALBUMIN 3.6 g/dL (3.5-5.0); CALCIUM 7.2 mg/dL (8.8-10.2); CREATININE 9.2 mg/dL (0.5-0.9); MAGNESIUM 3.1 mg/dL (1.5-2.7); TOTAL BILIRUBIN 0.2 mg/dL (0.20-1.00); TOTAL PROTEIN 6.2 g/dL (6.3-8.3)
[2019-02-22] MEDS ORDERED: LASIX IV ONE (23:08)
[2019-02-22] MEDS ORDERED: DUONEB (A & A) INH ONE (23:09)
[2019-02-22 23:32] LABS: POTASSIUM 6.1 mmol/L (3.5-5.1)
[2019-02-22 23:54] LABS: URINE SOURCE CLEAN CATCH
[2019-02-22 23:58] LABS: BILIRUBIN URINE NEGATIVE (NEGATIVE); BLOOD URINE TRACE (NEGATIVE); COLOR YELLOW; GLUCOSE URINE 100 mg/dL (NEGATIVE); KETONE URINE NEGATIVE (NEGATIVE); LEUKOCYTES URINE NEGATIVE (NEGATIVE); NITRITE URINE NEGATIVE (NEGATIVE); PROTEIN URINE 100 mg/dL (NEGATIVE); SP GRAVITY URINE 1.013; TURBIDITY URINE CLEAR (CLEAR); UROBILINOGEN URINE NORMAL (NORMAL)
[2019-02-22 23:59] LABS: UR EPITHELIAL CELLS <10 /HPF (<10); URINE BACTERIA NEGATIVE /HPF; URINE RBC <10 /HPF (<10); URINE WBC <10 /HPF (<10)
[2019-02-23] MEDS ORDERED: ALBUTEROL 0.5% INH CONC FOR HYPERKALEMIA INH ONE (00:43)
--- NOTE | 2019-02-23 06:20 | HISTORY AND PHYSICAL ---
PRIMARY CARE PHYSICIAN: None. CHIEF COMPLAINT: Shortness of breath. HISTORY OF PRESENTING ILLNESS: A 58-year-old female with a history of CHF, end-stage renal disease, hypertension, and COPD who apparently missed her dialysis session again. She was hospitalized recently for similar complaints of shortness of breath due to missing dialysis. She states that when she got out of the hospital and she was supposed to have dialysis today. Apparently, the dialysis center was closed. She was evaluated in the emergency department. It was suspected that she was volume overloaded. Subsequently, she will require admission for further treatment. At the time of my examination, she denied any headache, fever, chills, chest pain, or hemoptysis, but complained of shortness of breath and not feeling well. PAST MEDICAL HISTORY: Includes CHF, diastolic dysfunction, hypertension, end-stage renal disease, COPD, hyperlipidemia and diabetes mellitus type 2. PAST SURGICAL HISTORY: Bilateral carpal tunnel surgery, right foot surgery and right upper extremity AV graft. ALLERGIES: Bactrim, morphine, and penicillin. CURRENT MEDICATIONS: She does not recall. Nursing staff will reconcile. SOCIAL HISTORY: A 40 pack years history of smoking. Denies any history of alcohol or illicit drug use. FAMILY HISTORY: No history of coronary disease. REVIEW OF SYSTEMS: Fourteen point review of system as listed in HPI. Other systems negative. PHYSICAL EXAMINATION: GENERAL: Cooperative friendly female. She is resting more comfortably now. VITAL SIGNS: Temperature 97.7 degrees, pulse 83, respirations 16, and blood pressure 176/99. HEENT: Atraumatic, normocephalic. Extraocular movements intact. PERRLA. NECK: No masses. CHEST: Bibasilar rales. CARDIOVASCULAR: Regular rate and rhythm. ABDOMEN: Soft. Positive bowel sounds. EXTREMITIES: Trace edema. NEUROLOGIC: She is awake, alert, and oriented x3. : No bladder distention. SKIN: Warm. LABORATORIES AND STUDIES: WBC 6.64, hemoglobin 8.9, hematocrit 29.8, and platelets 235,000. Sodium 147, potassium 6.1, chloride 107, CO2 21, BUN is 99 creatinine 9.2, glucose 159, and proBNP is 4672. Chest x-ray shows improved bibasilar atelectasis. ASSESSMENT: This is a 58-year-old female with a history of CHF, hypertension, end-stage renal disease, and COPD, who had presented to emergency department with complaint of shortness of breath for 3 days. Apparently, she had missed her dialysis session on Friday, and she presented to her dialysis center earlier today. However it was closed. She seemed to be symptomatic. Subsequently, she will require admission for further management. 1. Suspected volume overload. 2. End-stage renal disease, missed dialysis session. 3. Congestive heart failure exacerbation, diastolic dysfunction. 4. Mild hyperkalemia. 5. Chronic obstructive pulmonary disease. 6. Diabetes mellitus type 2. PLAN: 1. We will admit patient to medical floor with telemetry. 2. We will consult Nephrology for dialysis. 3. Currently, she is on Lasix, and we will continue that. 4. She was treated for the hyperkalemia in the ED with albuterol. 5. We will continue with DuoNeb's p.r.n. 6. We will monitor blood glucose and put patient on sliding scale insulin regimen. 7. We will continue to follow and reassess. Make further recommendation based on patient's clinical course. It seems that the patient is already on anticoagulation, and that will suffice for DVT prophylaxis. cc: Remington Stevens MD
[2019-02-23] MEDS: NORCO-10 PO PRN ×4 (06:22→23:04)
[2019-02-23] MEDS ORDERED: NS 2,000 ML MISC PRN (06:44)
[2019-02-23] MEDS ORDERED: TIGHT: 0.2 ML/HR FOR DIALYSIS MISC PRN (06:44)
[2019-02-23] MEDS ORDERED: HEPARIN IV PRN (06:44)
--- NOTE | 2019-02-23 07:10 | Diag Imaging Result Doc PS360 ---
EXAM: CT ABDOMEN/PELVIS W/O CONTRAST 02/22/2019 HISTORY: ADOMINAL PAIN TECHNIQUE: This exam was performed using automated exposure control, adjustment of mA or kV according to patient size, and/or use of iterative reconstruction technique. COMMENT: There is some volume loss and opacification with air bronchograms in the medial inferior right middle lobe. There are platelike opacities in the right lower lobe and to a lesser extent the left posterior lateral costophrenic sulcus. Compared to 12/20/2018 the platelike opacity in the right lower lobe was present previously. The consolidation in the right middle lobe is worse. There may be some degree of bronchiectasis in this portion of the right middle lobe. There are granulomata present in the liver and spleen. There is a slightly exophytic hypodense nodule in the anterior left hepatic lobe which was also present on the previous study of 12/20/2018, and that of 03/15/2016. Compared to the latter examination the lesion has diminished in size from 3.6 to 2.1 cm in transverse dimension. There is extensive arteriosclerosis. The aorta is not distended however. The appendix is normal in appearance. The adrenal glands are not enlarged. There is perinephric stranding bilaterally but no evidence of hydronephrosis is present in this appearance was also present on the previous examination. Calcifications are present in both kidneys which have not changed significantly in size or orientation since the previous examination. The possibility of nephrolithiasis cannot be entirely excluded, however most of these calcifications are probably vascular. There is some stool throughout the colon without evidence of dilatation. The small bowel is not distended. There is diverticulosis in the sigmoid colon without evidence of diverticulitis. There is a fair amount of stool in the rectum. The urinary bladder is not distended. There is no free fluid. There are degenerative changes and postsurgical changes in the lumbar spine. No acute bony abnormalities are present. IMPRESSION: Right middle lobe pneumonia, most likely superimposed on bronchiectasis and fibrotic changes. No evidence of acute intra-abdominal or pelvic disease. Electronically signed by Saúl Castillo 02/23/2019 7:07 AM
[2019-02-23 11:25] LABS: HEMATOCRIT 29.9 % (37.0-47.0); HEMOGLOBIN 9.1 g/dL (12.0-16.0); MCH 28.3 PG (27-31); MCHC 30.4 g/dL (33-37); MCV 92.9 FL (81-99); MPV 11.1 FL (7.4-10.4); RBC 3.22 XMIL (4.2-5.4); RDW 15.9 % (11.5-14.5); WBC 7.98 X1000 (4.8-10.8)
[2019-02-23 12:12] LABS: CALCIUM 7.9 mg/dL (8.8-10.2); CREATININE 4.9 mg/dL (0.5-0.9); POTASSIUM 4.2 mmol/L (3.5-5.1)
[2019-02-23] MEDS: DUONEB (A & A) INH SCH ×4 (12:41→23:37)
[2019-02-23] MEDS: ZOFRAN IV PRN ×3 (14:05→23:04)
--- NOTE | 2019-02-23 14:07 | PROGRESS NOTE ---
DATE: 02/23/2019 The patient admitted with dyspnea. She had missed a couple of appointments for dialysis so volume overload was initially favored. Chest x-ray did not really show much though. On exam today, patient is with fairly significant expiratory wheezing. Suspect COPD exacerbation as a primary cause rather than just volume overload. She is getting dialysis today so she has some component of volume overload that should help significantly with that. We will go ahead and give her some steroids, and DuoNeb to see if we can get her wheezing/COPD exacerbation controlled. Her oxygen looks pretty good. The patient is not in respiratory distress so she improves with those treatments. She may be able to go home tomorrow.
[2019-02-23] MEDS: HUMULIN R SUBQ SCH ×4 (15:41→23:01)
[2019-02-23] MEDS: SOLU-MEDROL IV SCH ×3 (15:48→23:00)
[2019-02-23] MEDS: APRESOLINE PO SCH ×2 (15:50→20:22)
[2019-02-23] MEDS ORDERED: NORVASC PO ONE (15:57)
[2019-02-23] MEDS ORDERED: TOPROL XL PO ONE (15:57)
[2019-02-23] MEDS: ELIQUIS PO SCH (20:22)
[2019-02-23] MEDS: PATIENT'S OWN MED LEFT EYE SCH (20:28)
[2019-02-24] MEDS ORDERED: SODIUM CHLORIDE 0.9% INJ PRN (00:30)
[2019-02-24] MEDS: PHENERGAN IV PRN ×2 (01:57→21:17)
[2019-02-24] MEDS: DUONEB (A & A) INH SCH ×6 (04:07→23:28)
[2019-02-24 05:21] LABS: BASO# 0.01 X1000 (0.0-0.2); BASO% 0.1 % (0.0-0.8); HEMATOCRIT 32.8 % (37.0-47.0); HEMOGLOBIN 9.8 g/dL (12.0-16.0); IMM GRAN# 0.02 X1000 (0.0-0.04); IMM GRAN% 0.3 % (0.0-0.5); LYMPH# 0.29 X1000 (1.2-3.4); LYMPH% 3.8 % (20.5-51.1); MCH 28.4 PG (27-31); MCHC 29.9 g/dL (33-37); MCV 95.1 FL (81-99); MONO# 0.34 X1000 (0.11-0.59); MONO% 4.4 % (1.7-9.3); MPV 11.5 FL (7.4-10.4); NEUT# 7.06 X1000 (1.4-6.5); NEUT% 91.4 % (42.2-75.2); PLT 217 X1000 (130-400); RBC 3.45 XMIL (4.2-5.4); RDW 16.4 % (11.5-14.5); WBC 7.72 X1000 (4.8-10.8)
[2019-02-24 05:52] LABS: CALCIUM 7.7 mg/dL (8.8-10.2); MAGNESIUM 2.5 mg/dL (1.5-2.7)
[2019-02-24 06:02] LABS: LYMPHS 6 % (21-51); MONO 4 % (1-9); SEGS 90 % (42-75)
[2019-02-24 06:09] LABS: POTASSIUM 6.4 mmol/L (3.5-5.1)
[2019-02-24] MEDS: HUMULIN R SUBQ SCH ×4 (06:25→21:39)
[2019-02-24 06:34] LABS: ALLEN TEST YES; BE -3.7 mmoll (-3.0-3.0); BLOOD TYPE ARTERIAL; METHB 0.4 % (0.0-1.5); O2(CT) 13.6 mL/dL (15.0-23.0); O2HB 95.9 % (95.0-99.0); PCO2(98.6) 43 mmHg (35-45); PO2(98.6) 89 mmHg (60-100); SAMPLE BLOOD; SAO2 98.2 % (95.0-100.0); pH(98.6) 7.32 (7.35-7.45)
[2019-02-24 06:35] LABS: MODALITY CANNULA
--- NOTE | 2019-02-24 07:22 | Diag Imaging Result Doc PS360 ---
EXAM: CHEST-PORTABLE HISTORY: hypoxia,ams TECHNIQUE: Single view COMPARISON: 02/22/2019 FINDINGS: Interval development of dense bilateral infiltrates. Heart is mildly prominent. Right hemidiaphragm is elevated. No pleural effusions identified. IMPRESSION: Interval worsening Electronically signed by Cody Emery 02/24/2019 7:20 AM
[2019-02-24] MEDS ORDERED: HEPARIN IV PRN (07:35)
[2019-02-24] MEDS ORDERED: TIGHT: 0.2 ML/HR FOR DIALYSIS MISC PRN (07:35)
[2019-02-24] MEDS: NS 2,000 ML MISC PRN (08:21)
[2019-02-24] MEDS: SOLU-MEDROL IV SCH ×3 (12:44→21:20)
[2019-02-24] MEDS: TOPROL XL PO SCH (12:44)
[2019-02-24] MEDS: NORVASC PO SCH (12:44)
[2019-02-24] MEDS: APRESOLINE PO SCH ×3 (12:45→21:16)
[2019-02-24] MEDS: ELIQUIS PO SCH ×2 (12:45→21:16)
[2019-02-24] MEDS: NORCO-10 PO PRN ×2 (12:51→21:44)
--- NOTE | 2019-02-24 12:51 | NEPHROLOGY CONSULTATION ---
DATE: 02/24/2019 REASON FOR CONSULTATION: End-stage renal disease and congestive heart failure. HISTORY OF PRESENT ILLNESS: Ms Lara is a 58-year-old woman who is known to us from frequent admissions to the hospital. She has CKD 5D secondary to diabetes. She also has a history of congestive heart failure, diastolic dysfunction, hypertension, etc. She was discharged from the hospital last week and could not attend her treatment on Friday. She complained of feeling bad with chest discomfort and cramping. She returned to the emergency room on yesterday because of missed dialysis, cramping, shortness of breath. Her initial evaluation on yesterday found blood pressure 176/99, with heart rate 83, respiration of 16. Her initial laboratory data had potassium 6.1 that was treated medically and repeat was 4.2. Labs are well controlled otherwise. Her chest x-ray showed worsening pulmonary edema, and she underwent CT of the abdomen which disclosed possible pneumonia. PAST MEDICAL HISTORY: As above. HOME MEDICATIONS: Include hydrocodone, Durezol drops, metoprolol, Velphoro, tizanidine, amlodipine, losartan, insulin, hydralazine, apixaban, prednisone, tiotropium, fluticasone, albuterol, furosemide. ALLERGIES: Bactrim, morphine, penicillin. SOCIAL HISTORY: Strong smoking history. No alcohol or tobacco. FAMILY HISTORY: Noncontributory. REVIEW OF SYSTEMS: Noncontributory. PHYSICAL EXAMINATION: Vital Signs: Blood pressure 174/78, heart rate 64, respirations 24, afebrile. General: No acute distress. Skin: Warm and dry. Neck: The neck veins are difficult to read because of habitus. HEENT: Pupils are equal. Oropharynx is moist. Heart: Regular. Lungs: Equal. No crackles. Abdomen: Soft, nontender. Bowel sounds present. Extremities: Positive edema, active cramping. Neurologic: Exam is nonfocal. IMPRESSION AND PLAN: Hyperkalemia and volume overload. She is receiving hemodialysis currently. Attempt 3 to 4 liters ultrafiltration as her blood pressure allows. A 2-potassium bath. Her hemoglobin is stable and her blood pressure is above target, but we will reassess this after her volume status is improved. cc: Celso Shepherd MD
[2019-02-24] MEDS: PATIENT'S OWN MED LEFT EYE SCH ×2 (15:08→21:18)
--- NOTE | 2019-02-24 16:00 | PROGRESS NOTE ---
DATE: 02/24/2019 SUBJECTIVE: The patient is awake. Not in any obvious distress. OBJECTIVE: Vital signs: Vital signs are as follows: Temperature 99.1 degrees, pulse is 88, respiratory rate 16, blood pressure 179/98, oxygen saturation is 94%. HEENT: She is atraumatic, normocephalic. She is anicteric. No oral lesions noted. Cardiovascular System: S1, S2. Respiratory System: She does have evidence of rhonchi noted in both lung alexis. Abdomen: Soft, nontender. No masses felt. Extremities: Has evidence of edema in the lower extremities. Central nervous system: No obvious focal deficit noted. LABS: Labs are as follows: WBC 7.7, hematocrit 32.8, with a platelet count of 217. ABG is 7.32/43/89/98.2 percent. Chemistry: Sodium is 139, potassium is 6.4, chloride is 99, bicarbonate is 21. BUN is 68, creatinine is 7.0. X-RAYS: X-ray of the chest shows interval development of dense bilateral infiltrates. ASSESSMENT AND PLAN: 1. Acute diastolic congestive heart failure. The patient currently undergoing hemodialysis to address the issue of any volume overload, 2. Chronic obstructive pulmonary disease exacerbation. Maintain patient on nebulized bronchodilators, as well as steroids. 3. Probable pneumonia based on chest x-ray findings, which showed evidence of dense bilateral infiltrates. Obtain sputum culture, blood cultures, and start patient on empiric antibiotics for healthcare-associated pneumonia. 4. End-stage renal disease. Hemodialysis as recommended by Nephrology. 5. Diabetes mellitus. Monitor blood sugar levels and maintain patient on sliding scale insulin. 6. Hypertension. Optimize blood pressure control. 7. Tobacco use history. Recommend nicotine patch. 8. Anemia. Check iron studies along with B 12 and folate levels. 9. Deep vein thrombosis prophylaxis. The patient is on apixaban. 10. Gastrointestinal prophylaxis. Proton pump inhibitor. cc: Daniel Mancera MD
[2019-02-24] MEDS: LEVAQUIN 250 MG/D5W 250 MG/50 ML IVPB IV SCH ×2 (17:11→21:17)
[2019-02-24] MEDS: MERREM 500 MG in NS 50 ML IV SCH (21:18)
[2019-02-25] MEDS: DUONEB (A & A) INH SCH ×6 (03:14→23:02)
[2019-02-25] MEDS: PRILOSEC PO SCH (06:10)
[2019-02-25 06:27] LABS: ALBUMIN 3.7 g/dL (3.5-5.0); CREATININE 5.8 mg/dL (0.5-0.9); FERRITIN 1845 ng/mL (13-150); PHOSPHORUS 6.7 mg/dL (2.7-4.5); POTASSIUM 5.1 mmol/L (3.5-5.1)
[2019-02-25] MEDS: NORCO-10 PO PRN (06:32)
[2019-02-25] MEDS: HUMULIN R SUBQ SCH ×4 (06:33→21:31)
[2019-02-25] MEDS ORDERED: MERREM 1 GM in NS 50 ML IV SCH (07:45)
[2019-02-25] MEDS ORDERED: LEVAQUIN PO ONE ×2 (07:45→12:45)
[2019-02-25] MEDS: NS 2,000 ML MISC PRN (08:30)
[2019-02-25] MEDS ORDERED: NS 2,000 ML MISC PRN (08:53)
[2019-02-25] MEDS ORDERED: TIGHT: 0.2 ML/HR FOR DIALYSIS MISC PRN (08:53)
[2019-02-25] MEDS: SOLU-MEDROL IV SCH ×3 (10:09→23:18)
[2019-02-25] MEDS: APRESOLINE PO SCH ×3 (12:05→20:18)
[2019-02-25] MEDS: ELIQUIS PO SCH ×2 (12:39→20:18)
[2019-02-25] MEDS: NORVASC PO SCH (12:39)
[2019-02-25] MEDS: TOPROL XL PO SCH (12:39)
[2019-02-25] MEDS: MERREM 500 MG in NS 50 ML IV SCH (12:54)
--- NOTE | 2019-02-25 14:35 | PROGRESS NOTE ---
DATE: 02/25/2019 SUBJECTIVE: The patient is awake. No obvious distress. OBJECTIVE: Vital Signs: Temperature 98.3 degrees, pulse is 82, respirations 22, blood pressure is 126/51, oxygen saturation is 92%. HEENT: Atraumatic, normocephalic. Cardiovascular: Distant heart sounds. Respiratory: Has extensive rhonchi noted in both lung alexis. Abdomen: Soft, nontender. No masses felt. Extremities: Has edema, about 1+, in both lower extremities. Central Nervous System: No obvious focal deficit noted. LABORATORY DATA: Sodium is 143, potassium 5.1, chloride is 100, bicarb 25, BUN is 55, creatinine is 5.8. ASSESSMENT AND PLAN: 1. Acute diastolic congestive heart failure. The patient is currently undergoing hemodialysis to address the issue of any volume overload, 2. Chronic obstructive pulmonary disease exacerbation. Maintain the patient on nebulized bronchodilators as well as steroids. Oxygen supplementation as well. 3. Probable pneumonia. Follow up on sputum and blood cultures. Maintain the patient on antibiotics. 4. End-stage renal disease. Continue hemodialysis per recommendation of Nephrology. 5. Diabetes mellitus. Continue blood sugar monitoring as well as sliding scale insulin. 6. Hypertension. Optimize blood pressure control. 7. Tobacco use history. Nicotine patch. 8. Anemia. Follow up on hemoglobin and hematocrit. Transfuse packed red blood cells as needed. 9. Deep vein thrombosis prophylaxis. Apixaban. 10. Gastrointestinal prophylaxis. Proton pump inhibitor. cc: Daniel Mancera MD
--- NOTE | 2019-02-25 15:49 | PROVIDER PROGRESS NOTE ---
Progress Note Subjective: patient voices wishing to go home. She says that she has a hard time staying her whole dialysis treatment because of abdominal cramps. We have advised her that it is in her best interest to try and stay the whole treatment and we will try to accommodate her abdominal cramping. Her dry weight has been assessed and this is a common complaint with her. Objective: temperature 98.4, pulse 81, respirations 18, blood pressure 139/63, 02 sat 97% on 3.5 L nasal cannula. General: chronically ill appearing -[place] female sitting up to the side of the bed in no acute distress HEENT: normocephalic, atraumatic, pupils equal and reactive. Mucous membranes moist. Trachea midline. Skin: warm and dry. Neck: Supple, JVD observed in the upright position. Cardiovascular: S1S2, regular rate and rhythm. No murmurs or gallops noted. Respiratory: scattered wheezes and rhonchi, left lobe greater than right posteriorly Abdomen: soft, Nontender, nondistended. Bowel sounds present. : not inspected Extremities: 1+ pitting edema to bilateral lower extremities Neurological: alert and oriented to person, place, and time. Labs: sodium 143, potassium 5.1, chloride 100, carbon dioxide 25, BUN 55, creatinine 5.8. Intake 1082, output 4261. Impression: Chronic kidney disease stage 5D. She will have an extra hemodialysis treatment today due to volume status. She is OK for discharge from our standpoint at this point as we will continue to follow her in the output setting. Blood pressure. In target. Fluid volume. Expanded. Receiving an extra hemodialysis treatment today and will get her routine hemodialysis tomorrow. Anemia. Stable. Electrolytes and acid base balance. Stable. Nutrition. Adequate. Ambulation. Ambulating in room. Medication review. Her Levaquin was changed to PO due to inadequate IV access. Her meropenem has been changed to be given after each dialysis treatment as prescribed
[2019-02-25] MEDS ORDERED: MERREM 1 GM in NS 50 ML IV ONE (18:00)
[2019-02-25] MEDS: PATIENT'S OWN MED LEFT EYE SCH ×2 (19:19→20:18)
--- NOTE | 2019-02-25 21:32 | Diag Imaging Result Doc PS360 ---
EXAM: CT THORAX W/O CONTRAST INDICATION: pneumonia TECHNIQUE: This exam was performed using automated exposure control, adjustment of mA or kV according to patient size, and/or use of iterative reconstruction technique. COMPARISON: 12/25/2017 FINDINGS: There is extensive patchy airspace infiltrate seen throughout both lungs. This includes scattered tree-in-bud opacities suggesting bronchiolitis. This is probably an atypical infectious process. There has been fairly rapid development of bronchiectasis throughout both lungs since the prior study just over one year ago. There is right middle lobe atelectasis. There is no pleural fluid collection and no pneumothorax. There is a stable 1 cm pleural-based nodule at the posterior right upper lobe on image 41 of series 3. There are calcified mediastinal and hilar lymph nodes indicating prior granulomatous disease. There is stable cardiomegaly. There is extensive coronary artery atherosclerotic calcification that is similar to the previous study. Limited views of the upper abdomen are grossly unremarkable. IMPRESSION: 1.Extensive patchy airspace infiltrates bilaterally including tree-in-bud opacities likely representing an atypical infectious process. 2.Fairly rapid development of mild bronchiectasis since the previous study bilaterally. 3.Other incidental/nonacute findings detailed above. Electronically signed by David Orantes 02/25/2019 9:29 PM
[2019-02-26] MEDS: DUONEB (A & A) INH SCH ×6 (03:30→22:55)
[2019-02-26] MEDS: PRILOSEC PO SCH (06:13)
[2019-02-26] MEDS: HUMULIN R SUBQ SCH ×4 (06:13→21:16)
[2019-02-26] MEDS ORDERED: NS 2,000 ML MISC PRN (07:54)
[2019-02-26] MEDS: NORCO-10 PO PRN ×2 (07:59→14:20)
[2019-02-26] MEDS: APRESOLINE PO SCH ×3 (08:00→21:16)
[2019-02-26] MEDS: NORVASC PO SCH (08:00)
[2019-02-26] MEDS: ELIQUIS PO SCH ×2 (08:00→21:16)
[2019-02-26] MEDS: TOPROL XL PO SCH (08:00)
[2019-02-26] MEDS: PATIENT'S OWN MED LEFT EYE SCH ×2 (10:35→21:04)
[2019-02-26] MEDS: SOLU-MEDROL IV SCH ×3 (10:36→21:04)
[2019-02-26 11:01] LABS: BASO# 0.01 X1000 (0.0-0.2); BASO% 0.2 % (0.0-0.8); EOS# 0.02 X1000 (0.0-0.7); EOS% 0.4 % (0.0-10.0); HEMATOCRIT 28.9 % (37.0-47.0); HEMOGLOBIN 8.6 g/dL (12.0-16.0); IMM GRAN# 0.03 X1000 (0.0-0.04); IMM GRAN% 0.6 % (0.0-0.5); LYMPH# 0.63 X1000 (1.2-3.4); LYMPH% 12.6 % (20.5-51.1); MCH 28.2 PG (27-31); MCHC 29.8 g/dL (33-37); MCV 94.8 FL (81-99); MONO# 0.47 X1000 (0.11-0.59); MONO% 9.4 % (1.7-9.3); MPV 11.6 FL (7.4-10.4); NEUT# 3.84 X1000 (1.4-6.5); NEUT% 76.8 % (42.2-75.2); PLT 199 X1000 (130-400); RBC 3.05 XMIL (4.2-5.4)
--- NOTE | 2019-02-26 11:49 | NEPHROLOGY PROGRESS NOTE ---
DATE: 02/26/2019 SUBJECTIVE: She is still receiving dialysis currently. Still coughing and wheezing. OBJECTIVE: Vital Signs: Blood pressure 114/88, heart rate 74, respirations 20, afebrile. General: No acute distress. Skin is warm and dry. Neck veins are not distended. Cardiovascular: Heart is regular. Lungs have diffuse wheezes and crackles. Abdomen: Soft, nontender. Bowel sounds present. Extremities: 1 to 2+ edema. No clubbing or cyanosis. IMPRESSION/PLAN: 1. Chronic kidney disease 5D. Continue routine hemodialysis today. 2K bath, 37 bicarbonate. Hemoglobin is below target but does not meet criteria for transfusion. 2. Pneumonia. Worsening CT. She is now on Merrem and levofloxacin. I will ask Dr. Rosenberg to participate. cc: Celso Shepherd MD
[2019-02-26 12:06] LABS: CALCIUM 7.6 mg/dL (8.8-10.2)
[2019-02-26 12:09] LABS: CREATININE 3.5 mg/dL (0.5-0.9)
--- NOTE | 2019-02-26 15:23 | INFECTIOUS DISEASE PROGRESS NO ---
DATE: 02/26/2019 CONCLUSION: The patient has a worsening pneumonia. RECOMMENDATIONS: I have started the patient on Zyvox. She already is on Levaquin and meropenem. DISCUSSION: The patient was not a very good historian. She tells me that she had been coughing, but not bringing up any sputum, and some chest pain for the past 1 to 2 weeks. Her CBC shows a white count of 5000, a hemoglobin of 8.6, and a platelet count of 199,000. The patient's creatinine is 3.5. The GFR is 16. The patient's chest CT scan showed extensive patchy airspace infiltrates bilaterally. Also, the patient has had rapid development of bronchiectasis. PAST MEDICAL HISTORY/REVIEW OF SYSTEMS: Eyes and ears: The patient says she has decreased hearing and vision. Neck: No stiffness. Cardiac: No chest pain or palpitations. Gastrointestinal: No nausea, vomiting, or diarrhea. Genitourinary: No dysuria. Bones, joints, muscle: She says she aches in her muscles and most of her joints. Integument: No rashes. OBSTETRIC/GYNECOLOGIC HISTORY: She is a 2, para 2, AB 0. She has had a hysterectomy. PREVIOUS HOSPITALIZATIONS AND OPERATIONS: She has had 2 labor and deliveries, a hysterectomy. She has had placement of an AV fistula in the left arm which is nonfunctional. She also has an AV fistula in the right arm which is functioning. She has had bilateral carpal tunnel surgery. She has had foot surgery. MEDICAL DISEASES: Positive for diabetes mellitus, hypertension, obesity, congestive heart failure, end-stage renal disease, and hyperlipidemia. Positive for pneumonia and right foot infection. FAMILY HISTORY: Positive for cancer, hypertension, and end-stage renal disease. SOCIAL HISTORY: The patient lives in [place]. She lives with her son. She smokes cigarettes, but she does not drink alcoholic beverages or abuse drugs. ALLERGIES: She states she is allergic to penicillin and Septra. Penicillin allergy is manifested by urticaria. HOME MEDICATIONS: Include the following: Albuterol inhaler, amlodipine, Eliquis, Durezol, Lasix, Apresoline, hydrocodone, insulin, losartan, metoprolol, Spiriva, and Zanaflex. PHYSICAL EXAMINATION: Vital Signs: Temperature is 98.8 degrees, pulse 74, respirations 20, blood pressure 120/80. The patient is 5 feet 6 inches tall, weighs 186 pounds. General: This is an obese, chronically ill-appearing, middle-aged female. She is in no acute distress at this time. Head/eyes/ears/nose/throat: She has decreased hearing. She can see near objects. There is no drainage from her nose or the ears. I did not see any white patches on her tongue. Neck: No meningismus. Lungs: Clear to auscultation. Cardiovascular: Heart rate is regular. Abdomen: Soft and nontender. Extremities: In the left arm, the patient has an AV fistula which is nonfunctional. In the right arm, she has a functional AV fistula. Neurologic: The patient is awake. She can move her extremities. Her memory as regarding her medical history is decreased. There is no tremor. Thank you for the consult. cc: Lewis Rosenberg MD
--- NOTE | 2019-02-26 15:33 | PROGRESS NOTE ---
DATE: 02/26/2019 INTERVAL HISTORY: The patient still with some wheezing, although much improved from previous. Respiratory status overall improved, but still requiring some oxygen. She is getting dialyzed today. REVIEW OF SYSTEMS: Twelve-point review of systems negative except as per interval history. LABS: WBC 5.0, hemoglobin 8.6, hematocrit 28.9, platelets 199,000. Sodium 142, potassium 4, BUN 32, creatinine 3.5, glucose 140. VITALS: T-max 99.3, pulse 74, respirations 20, blood pressure 114/88, O2 saturation 92% on 3 L by nasal cannula. PHYSICAL EXAMINATION: General: In no acute distress. Vitals: As above. HEENT: Normocephalic, atraumatic. Moist mucous membranes. Neck: No cervical adenopathy. Cardiovascular: Regular rate and rhythm. No murmurs noted. Pulmonary: Still some expiratory wheezing, although little better than previous. Some bibasilar rales. Abdomen: Soft, nontender, nondistended. Bowel sounds positive. Extremities: Peripheral pulses intact. Dialysis fistula with good thrill. Neurologic: Cranial nerves grossly intact. No focal deficits identified. Psychiatric: Normal mood and affect. Awake, alert, oriented x3. ASSESSMENT AND PLAN: 1. Acute hypoxic respiratory failure, multifactorial, with COPD exacerbation, pneumonia, and likely some volume overload initially. Volume overload essentially resolved, status post dialysis. 2. Wheezing and chronic obstructive pulmonary disease exacerbation, somewhat improved with steroids and nebs, although she is still wheezing a little bit. We will plan on continuing those. 3. Pneumonia identified on repeat chest x-ray yesterday. Patient started on Merrem and Levaquin. Some minimal improvement since then but still requiring a fair amount of oxygen. ID consulted today and Zyvox added. Will monitor response and see how she does.
[2019-02-26] MEDS ORDERED: MERREM 1 GM in NS 50 ML IV SCH (17:00)
[2019-02-26] MEDS: ZYVOX PO SCH (21:16)
[2019-02-27] MEDS: DUONEB (A & A) INH SCH ×6 (02:53→23:27)
[2019-02-27] MEDS: HUMULIN R SUBQ SCH ×4 (06:44→23:39)
[2019-02-27] MEDS: PRILOSEC PO SCH (06:49)
[2019-02-27 07:36] LABS: BASO# 0.01 X1000 (0.0-0.2); BASO% 0.2 % (0.0-0.8); HEMATOCRIT 30.7 % (37.0-47.0); IMM GRAN# 0.03 X1000 (0.0-0.04); IMM GRAN% 0.6 % (0.0-0.5); LYMPH% 11.1 % (20.5-51.1); MCHC 29.3 g/dL (33-37); MCV 95.6 FL (81-99); MONO# 0.55 X1000 (0.11-0.59); MONO% 10.2 % (1.7-9.3); MPV 11.9 FL (7.4-10.4); NEUT# 4.22 X1000 (1.4-6.5); NEUT% 77.9 % (42.2-75.2); PLT 184 X1000 (130-400); RBC 3.21 XMIL (4.2-5.4); RDW 15.9 % (11.5-14.5); WBC 5.41 X1000 (4.8-10.8)
[2019-02-27 08:14] LABS: CALCIUM 7.6 mg/dL (8.8-10.2); CREATININE 4.5 mg/dL (0.5-0.9); POTASSIUM 5.4 mmol/L (3.5-5.1)
[2019-02-27] MEDS: NORCO-10 PO PRN (10:31)
[2019-02-27] MEDS: APRESOLINE PO SCH ×4 (10:32→21:58)
[2019-02-27] MEDS: TOPROL XL PO SCH (10:33)
[2019-02-27] MEDS: ELIQUIS PO SCH ×2 (10:33→21:58)
[2019-02-27] MEDS: LEVAQUIN PO SCH (10:33)
[2019-02-27] MEDS: SOLU-MEDROL IV SCH ×2 (10:33→17:17)
[2019-02-27] MEDS: ZYVOX PO SCH ×2 (10:33→21:58)
[2019-02-27] MEDS: NORVASC PO SCH (10:33)
[2019-02-27] MEDS ORDERED: HEPARIN IV PRN (11:13)
[2019-02-27] MEDS ORDERED: NS 2,000 ML MISC PRN (11:13)
--- NOTE | 2019-02-27 12:21 | PROGRESS NOTE ---
DATE: 02/27/2019 SUBJECTIVE: This patient seems to be feeling a little bit better but she is still having shortness of breath and symptoms, she is wheezing bilaterally. As per the patient, she stopped smoking 2 weeks ago, she does have a history of COPD. I will continue with the same management for now. I do believe she is due for dialysis today. OBJECTIVE: Vital Signs: Temperature 97.8 degrees, pulse 76, respiratory rate 16, blood pressure 150/66, oxygen saturation 100% on 2 L of nasal cannula. HEENT: Head normocephalic, no trauma. PERRLA. Neck: Supple. No JVD. No masses. Central trachea. Chest: Decreased breath sounds globally with prolonged expiratory phase, bilateral crepitus and wheezing which are mostly expiratory. Abdomen: Soft, nontender, nondistended. No hepatosplenomegaly. Extremities: Trace lower extremity edema. No clubbing. No cyanosis. She has a right AV fistula that is working and she had a left AV fistula that is not working now and she has scar tissue. Neurological: The patient is awake, alert, she is oriented x3. She seems to be weak. LABORATORY DATA: WBC 5.4, hemoglobin 9, hematocrit 30.7, platelets 184,000. Sodium 140, potassium 5.4, chloride 98, bicarbonate 28, BUN 43, creatinine 4.5, glucose 155, calcium 7.6. ASSESSMENT AND PLAN: 1. Acute hypoxemic respiratory failure, multifactorial due to pneumonia and chronic obstructive pulmonary disease exacerbation, fluid overload. Continue with same management for now. Continue dialysis. Continue treatment for the COPD and pneumonia. Infectious Disease Department on board. 2. Pneumonia. As above, continue with antibiotics. 3. Chronic obstructive pulmonary disease exacerbation. Continue with breathing treatment, steroids and antibiotics. 4. End-stage renal disease. Continue with dialysis as scheduled. She has some fluid overload which apparently is better. cc: Duke Gallo MD
[2019-02-27] MEDS: PATIENT'S OWN MED LEFT EYE SCH ×2 (14:04→21:41)
--- NOTE | 2019-02-27 14:45 | NEPHROLOGY PROGRESS NOTE ---
DATE: 02/27/2019 SUBJECTIVE: She is sitting up on the side of the bed. She is anxious to be discharged but she is still requiring oxygen. OBJECTIVE: Vital Signs: Blood pressure 148/42, heart rate 69, respirations 15, afebrile. General: No acute distress. Skin: Warm and dry. Conjunctivae are pink. Neck: Neck veins are distended. Heart: Regular. Lungs: Equal with prominent diffuse wheezing and crackles. Abdomen: Soft, nontender. Bowel sounds present. Extremities: 1+ edema. No clubbing or cyanosis. IMPRESSION: Chronic kidney disease 5D. Potassium is marginally high. She still appears volume overloaded. Dialysis again today. I encouraged her to stay in the hospital for ongoing antibiotic therapy treatment to treat her pneumonia and also to deal with her volume overload. She is agreeable at this time. cc: Celso Shepherd MD
[2019-02-27] MEDS: ZOFRAN IV PRN (15:17)
[2019-02-27] MEDS ORDERED: MERREM 1 GM in NS 50 ML IV ONE (17:00)
[2019-02-27] MEDS ORDERED: PREDNISONE PO ONE (21:00)
[2019-02-27] MEDS: ZOFRAN ODT PO PRN (22:40)
[2019-02-28] MEDS: NORCO-10 PO PRN ×3 (03:03→16:57)
[2019-02-28] MEDS: DUONEB (A & A) INH SCH ×6 (03:24→23:35)
[2019-02-28 05:45] LABS: BASO# 0.01 X1000 (0.0-0.2); BASO% 0.2 % (0.0-0.8); EOS# 0.03 X1000 (0.0-0.7); EOS% 0.5 % (0.0-10.0); HEMATOCRIT 32.7 % (37.0-47.0); HEMOGLOBIN 9.7 g/dL (12.0-16.0); IMM GRAN# 0.04 X1000 (0.0-0.04); IMM GRAN% 0.7 % (0.0-0.5); LYMPH# 0.84 X1000 (1.2-3.4); LYMPH% 15.1 % (20.5-51.1); MCH 28.6 PG (27-31); MCHC 29.7 g/dL (33-37); MCV 96.5 FL (81-99); MONO# 0.64 X1000 (0.11-0.59); MONO% 11.5 % (1.7-9.3); MPV 11.7 FL (7.4-10.4); PLT 186 X1000 (130-400); RBC 3.39 XMIL (4.2-5.4); RDW 15.7 % (11.5-14.5); WBC 5.56 X1000 (4.8-10.8)
[2019-02-28] MEDS: PRILOSEC PO SCH (06:34)
[2019-02-28] MEDS: HUMULIN R SUBQ SCH ×4 (06:34→20:30)
[2019-02-28 06:43] LABS: CALCIUM 7.6 mg/dL (8.8-10.2); CREATININE 4.5 mg/dL (0.5-0.9); MAGNESIUM 1.8 mg/dL (1.5-2.7); PHOSPHORUS 3.8 mg/dL (2.7-4.5); POTASSIUM 4.9 mmol/L (3.5-5.1)
--- NOTE | 2019-02-28 08:04 | INFECTIOUS DISEASE PROGRESS NO ---
DATE: 02/28/2019 PRESENT ILLNESS: The patient has a bilateral pneumonia. MEDICATIONS: The patient currently is receiving Levaquin, Zyvox, and meropenem. She has been on these antibiotics now for 2 days. PHYSICAL EXAMINATION: Vital Signs: Temperature is 97.3 degrees, pulse 74, respirations 19, blood pressure 116/53. General: This is a chronically ill-appearing, middle-aged female. She is in no acute distress. Head, Eyes, Ears, Nose, and Throat: She can hear my spoken words and see near objects. She does not have any coating on her tongue. Neck: No stiffness. Lungs: Clear to auscultation. Cardiovascular: Heart rate is regular. Abdomen: Soft and nontender. Extremities: The patient has a nonfunctioning left arm AV fistula and a functional right arm AV fistula. Neurologic: The patient was sleeping but she awoke after verbal requests. She can move her extremities. There is no tremor. LAB AND X-RAY: There is no new x-ray today. The patient's CBC shows a white count of 5560, hemoglobin 9.7, and platelet count 186,000. Creatinine is 4.5. GFR is 12. Blood cultures are negative. ASSESSMENT AND PLAN: The patient has pneumonia. I plan on continuing the patient's current antibiotics. For tomorrow, I have ordered a CBC and a portable chest x-ray. COMORBIDITIES: The patient is a diabetic. She also has end-stage renal disease and she is on dialysis. The patient also has congestive heart failure and she is obese also. cc: Lewis Rosenberg MD
[2019-02-28] MEDS: NORVASC PO SCH (08:18)
[2019-02-28] MEDS: APRESOLINE PO SCH ×3 (08:18→20:29)
[2019-02-28] MEDS: PREDNISONE PO SCH ×2 (08:18→20:29)
[2019-02-28] MEDS: ZYVOX PO SCH ×2 (08:19→20:29)
[2019-02-28] MEDS: TOPROL XL PO SCH (08:19)
[2019-02-28] MEDS: ELIQUIS PO SCH ×2 (08:19→20:29)
[2019-02-28] MEDS ORDERED: PREDNISONE PO SCH (09:00)
--- NOTE | 2019-02-28 11:21 | PROGRESS NOTE ---
DATE: 02/28/2019 SUBJECTIVE: This patient is sitting at the bedside. As per the patient, she feels a little bit better, but she is still short of breath requiring oxygen and wheezing bilaterally. As per the patient, she stopped smoking around 2 weeks ago. She has a history of chronic obstructive pulmonary disease. We will continue with same management, continue with antibiotics. OBJECTIVE: Vital Signs: Temperature 98 degrees, pulse 75, respiratory rate 18, blood pressure 137/62, oxygen saturation 100% on 2 L of nasal cannula. HEENT: Head normocephalic, no trauma, PERRLA. Neck: Supple. No JVD. No masses. Central trachea. Chest: Decreased breath sounds globally with prolonged expiratory phase. Bilateral crepitus and wheezing which are mostly expiratory. Abdomen: Soft, nontender, nondistended. No hepatosplenomegaly. Extremities: Trace lower extremity edema. No clubbing. No cyanosis. She has a right AV fistula that is working, and she has a left AV fistula that is not working now, and she has scar tissue. Neurological: The patient is awake, alert. She is oriented x3. She seems to be weak. LABORATORY: WBC 5.5, hemoglobin 9.7, hematocrit 32.7, platelets 186,000. Sodium 141, potassium 4.9, chloride 100, bicarbonate 25, BUN 35, creatinine 4.5, glucose 167, calcium 7.6, magnesium 1.8. ASSESSMENT AND PLAN: 1. Acute hypoxemic respiratory failure, multifactorial due to pneumonia and COPD exacerbation, fluid overload. Continue with same management for now. Continue with dialysis. Continue with treatment for COPD and pneumonia. Infectious Disease Department on board. I have stopped the IV steroids, and I put her on prednisone p.o. twice a day because we have been having problems finding a peripheral line on this patient. 2. Pneumonia, as above, continue with antibiotics. 3. Chronic obstructive pulmonary disease exacerbation. Continue breathing treatment, steroids and antibiotics. 4. End-stage renal disease. Continue with dialysis as scheduled. She still has some fluid overload, but it is better. cc: Duke Gallo MD
[2019-02-28] MEDS: MIRALAX PO SCH ×2 (12:54→20:29)
[2019-02-28] MEDS: PATIENT'S OWN MED LEFT EYE SCH (12:59)
[2019-02-28] MEDS: ZOFRAN ODT PO PRN (17:14)
[2019-03-01] MEDS: DUONEB (A & A) INH SCH ×6 (04:04→23:27)
[2019-03-01] MEDS: PATIENT'S OWN MED LEFT EYE SCH ×3 (05:04→23:27)
[2019-03-01] MEDS ORDERED: NS 2,000 ML MISC PRN (06:08)
[2019-03-01] MEDS ORDERED: HEPARIN IV PRN (06:08)
[2019-03-01] MEDS ORDERED: TIGHT: 0.2 ML/HR FOR DIALYSIS MISC PRN (06:08)
[2019-03-01 06:22] LABS: BASO# 0.01 X1000 (0.0-0.2); BASO% 0.1 % (0.0-0.8); HEMATOCRIT 31.5 % (37.0-47.0); HEMOGLOBIN 9.6 g/dL (12.0-16.0); LYMPH# 0.64 X1000 (1.2-3.4); MCH 29.3 PG (27-31); MCHC 30.5 g/dL (33-37); MONO# 0.45 X1000 (0.11-0.59); MONO% 6.3 % (1.7-9.3); MPV 11.8 FL (7.4-10.4); NEUT# 6.01 X1000 (1.4-6.5); NEUT% 84.6 % (42.2-75.2); PLT 203 X1000 (130-400); RBC 3.28 XMIL (4.2-5.4); RDW 15.7 % (11.5-14.5); WBC 7.11 X1000 (4.8-10.8)
[2019-03-01] MEDS: HUMULIN R SUBQ SCH ×4 (06:25→22:13)
[2019-03-01] MEDS: PRILOSEC PO SCH (06:25)
--- NOTE | 2019-03-01 06:48 | INFECTIOUS DISEASE PROGRESS NO ---
DATE: 03/01/2019 PRESENT ILLNESS: The patient has bilateral pneumonia. The patient appears to have developed oral candidiasis. MEDICATIONS: This is the 4th day of treatment with the combination of Levaquin Zyvox, and meropenem. PHYSICAL EXAMINATION: Vital Signs: Temperature 97.9 degrees, pulse 80, respirations 18, and blood pressure 151/66. General: This is a chronically ill-appearing middle-aged female. She is in no acute distress. Head/eyes/ears/nose/throat: She can hear my spoken words and see near objects. She has developed a white coating to her tongue, and I think she has oral candidiasis. Neck: No pain with movement. Lungs: Clear to auscultation. Cardiovascular: Heart rate is regular. Abdomen: Soft and nontender. Extremities: The patient has functional right arm AV fistula for dialysis. In the left arm, she has a nonfunctional AV fistula. Neurologic: The patient is alert today. She talks in a coherent fashion. She can move her extremities. There is no tremor. LABORATORY AND X-RAY: The patient's CBC and chest x-ray are pending. The creatinine is 4.5. GFR is 12. ASSESSMENT AND PLAN: Patient has pneumonia and oral candidiasis. I am going to continue with Levaquin, Zyvox and meropenem. I am going to add nystatin swish and swallow for the patient's oral candidiasis. As mentioned above, the CBC and chest x-ray were ordered for today but the results have not returned. COMORBIDITIES: The patient has diabetes mellitus, end-stage renal disease for which she is on dialysis, congestive heart failure, and obesity. cc: Lewis Rosenberg MD
[2019-03-01 07:02] LABS: CALCIUM 7.2 mg/dL (8.8-10.2); CREATININE 6.7 mg/dL (0.5-0.9); POTASSIUM 5.6 mmol/L (3.5-5.1)
--- NOTE | 2019-03-01 07:36 | Diag Imaging Result Doc PS360 ---
EXAM: CHEST-1 VIEW HISTORY: pneumonia TECHNIQUE: Single view COMPARISON: 02/24/2019 FINDINGS: The lungs are well expanded. Marked decreased infiltrates compared to the prior exam. There is also basilar atelectasis. Heart is borderline mildly prominent. Tiny left effusion. IMPRESSION: Interval improvement Electronically signed by Cody Emery 03/01/2019 7:33 AM
[2019-03-01] MEDS: APRESOLINE PO SCH ×3 (12:31→21:32)
[2019-03-01] MEDS: ELIQUIS PO SCH ×2 (13:01→21:32)
[2019-03-01] MEDS: NORVASC PO SCH (13:02)
[2019-03-01] MEDS: ZYVOX PO SCH ×2 (13:02→21:32)
[2019-03-01] MEDS: PREDNISONE PO SCH ×2 (13:02→21:32)
[2019-03-01] MEDS: MIRALAX PO SCH ×2 (13:02→21:33)
[2019-03-01] MEDS: LEVAQUIN PO SCH (13:02)
[2019-03-01] MEDS: TOPROL XL PO SCH (13:02)
--- NOTE | 2019-03-01 13:55 | NEPHROLOGY PROGRESS NOTE ---
DATE: 03/01/2019 TIME SEEN: 0725. SUBJECTIVE: Ms. Lara is resting quietly in bed. States that she is feeling much better. Still requires assistance with her banking while being in the hospital. LABORATORY DATA: Sodium 139, potassium 5.6, chloride 97, CO2 of 24, BUN 58, creatinine 6.7, glucose is 290, her anion gap is 18, calcium 7.2. White count 7.11, hemoglobin 9.6, hematocrit 31.5, with a platelet count of 203,000. OBJECTIVE: Vital Signs: Temperature 97.9 degrees, blood pressure 151/66, heart rate 80, respirations 18. She is currently on room air. Last recorded saturation is 94%. She has had 600 in. She has had 0 recorded out with need for dialysis. General: This is a 58-year-old, female, resting quietly in bed. She appears chronically ill. No acute distress. Skin: Warm and dry. HEENT: Normocephalic, atraumatic. Conjunctiva is pale. She has ODUG. Mucous membranes are dry. Neck: Supple. Trachea midline. She has positive JVD in the upright position. Cardiovascular: Regular rate and rhythm. No murmur or gallop appreciated. Lungs: Clear to auscultation anterior with faint expiratory wheezes posterior. She remains on room air. Equal excursion. Abdomen: Large, round, soft, nontender. Positive bowel sounds. Genitourinary: Not inspected. Minimal void with dialysis assist. Extremities: No edema. No clubbing or cyanosis. The patient has a right upper arm fistula, which has a palpable thrill. Neurological: Alert and oriented x3. ASSESSMENT AND PLAN: 1. Chronic kidney disease stage 5D. The patient is requiring hemodialysis today. No indications for further intervention. We will place her on a 2-potassium bath. She is to dialyze for 3.5 hours. We will dialyze her to her post inpatient dry weight from her last dialysis treatment. 2. Electrolytes and acid-base balance. She is to be placed on a 2-potassium bath with expected correction on dialysis. 3. Anemia. This remains low, but stable. 4. Pneumonia with fluid volume overload. The patient is agreeable to inpatient antibiotic. She is also being dialyzed today for her post dialysis treatment dry weight. I would like to thank you for allowing us to follow with this patient. Dictated by DIXIE Ch for Celso Shepherd MD Face to face encounter, data reviewed, discussed with Tristan Zavala on 03/01/19. I agree with the above assessment and plan of care. cc: DIXIE Ch MD [facility]
[2019-03-01] MEDS: NOVOLOG MIX 70/30 SUBQ SCH (15:55)
--- NOTE | 2019-03-01 15:57 | PROGRESS NOTE ---
DATE: 03/01/2019 SUBJECTIVE: The patient was getting dialysis during my exam, she feels better. Her blood sugar has been elevated likely due to the steroids, she is still wheezing a little bit though. She still has bilateral crackles and some rhonchi scattered. OBJECTIVE: Vital Signs: Temperature 97.2 degrees, pulse 86, respiratory rate 18, blood pressure 158/71. Oxygen saturation 100% on 3 L of nasal cannula. HEENT: Head normocephalic, no trauma. PERRLA. Neck: Supple. No JVD. No masses. Central trachea. Chest: Decreased breath sounds globally with prolonged expiratory phase. Bilateral crepitus and some crackles and some end- expiratory wheezing, probably some rhonchi bilaterally, as well. Abdomen: Soft, nontender, nondistended. No hepatosplenomegaly. Extremities: Trace edema. No Clubbing, no cyanosis. Neurological: This patient is awake, alert. She is oriented x3. She seems to be weak, she has an arteriovenous fistula on the right side that is working fine and she has also a left AV fistula that is not working, but she has scar tissue. LABORATORY: WBC 7.1, hemoglobin 9.6, hematocrit 31.5, platelets 203,000. Sodium 139, potassium 5.6, chloride 97, bicarbonate 24, BUN 58, creatinine 6.7, glucose 290, calcium 7.2. ASSESSMENT AND PLAN: 1. Acute hypoxemic respiratory failure, multifactorial due to pneumonia and chronic obstructive pulmonary disease exacerbation, fluid overload. Continue with same management for now. Continue with dialysis. Continue with treatment for chronic obstructive pulmonary disease and pneumonia. Infectious Disease Department on board. I have stopped the IV steroids and put her on prednisone twice a day. I think it is working. She is wheezing less than yesterday and she is feeling a little bit better. 2. Pneumonia as above. 3. Chronic obstructive pulmonary disease exacerbation. Continue with same management. 4. End-stage renal disease. Continue with dialysis as scheduled. She still has some fluid overload but she is feeling better. She was getting dialysis at the moment of my evaluation. cc: Duke Gallo MD
[2019-03-01] MEDS ORDERED: INSULIN PEN NEEDLES ONE (15:58)
[2019-03-01] MEDS: NORCO-10 PO PRN (22:11)
--- NOTE | 2019-03-02 01:56 | PROVIDER DOCUMENTATION ---
This chart was entered by Mary Schumacher Scribe, acting as scribe for Sheree De La Cruz MD. HPI-General Adult - General Stated Complaint: sob Time Seen by Provider: 02/22/19 19:48 Source: patient Allergies/Adverse Reactions: Patient Allergies Allergy/AdvReac Type Severity Reaction Status Date / Time sulfamethoxazole Allergy Severe ANAPHYLAXIS Verified 02/23/19 05:57 [From ] trimethoprim [From ] Allergy Severe ANAPHYLAXIS Verified 02/23/19 05:57 morphine Allergy Intermediate HIVES Verified 02/23/19 05:57 Penicillins Allergy Mild HIVES Verified 02/23/19 05:57 Home Medications: Home Medication List Medication Instructions Recorded Confirmed Last Taken Type Hydrocodone/Acetaminophen [[place] 1 each PO TID PRN 06/17/17 02/23/19 08/18/17 06:00 History 10-325 Tablet] 1 Amlodipine Besylate 10 mg PO DAILY 12/31/18 02/23/19 Unknown History Difluprednate [Durezol] 1 drp LEFT EYE BID 12/31/18 02/23/19 Unknown History Losartan Potassium 50 mg PO DAILY 12/31/18 02/23/19 Unknown History Metoprolol Succinate 50 mg PO DAILY 12/31/18 02/23/19 Unknown History Sucroferric Oxyhydroxide [Velphoro] 1 tab PO AC 12/31/18 02/23/19 Unknown History Tizanidine [Zanaflex] 4 mg PO BID PRN 12/31/18 02/23/19 Unknown History Apixaban [Eliquis] 2.5 mg PO BID #60 tab 01/04/19 02/23/19 Unknown Rx Hydralazine [Apresoline] 25 mg PO 0800,1400,2100 #90 tab 01/04/19 02/23/19 Unknown Rx Insulin Novolog 70/30 [Novolog Mix 15 unit SUBQ BID AC #0 insuln.pen 01/04/19 02/23/19 Unknown Rx 70/30] Albuterol 2.5MG/Ipratrop 0.5MG 3 ml INH Q4H PRN #30 neb 02/19/19 02/23/19 Unknown Rx [Duoneb (A & A)] Albuterol Sulfate Inhaler 2 puff INH [id number] PRN #1 inhaler 02/19/19 02/23/19 Unknown Rx [Ventolin Hfa] Fluticasone/[place] 250/50 INH 1 puff INH RTBID #1 inhaler 02/19/19 02/23/19 Unknown Rx [Advair 250/50 Diskus] Furosemide [Lasix] 40 mg PO DAILY #30 tab 02/19/19 02/23/19 Unknown Rx Prednisone 20 mg PO DIRECTED #20 tab 02/19/19 02/23/19 Unknown Rx Tiotropium [place] Inhaler 1 puff INH RTDAILY #1 inhaler 02/19/19 02/23/19 Unknown Rx [Spiriva] - History of Present Illness -Gen Adult Nature of Presenting Problems: pt is a 58 yr old female presenting via EMS with 2 day complaint of increasing shortness of breath and abdominal pain, pt hx of same, pt admits she missed dialysis today. pt admits generalized intermittent abdominal pain, no nausea/vomiting or diarrhea. Location of Pain/Injury: reports: abdomen Pain Radiation: reports: no radiation Quality of Pain: reports: sharp Severity: reports: moderate Onset/Duration: reports: 2 days ago Timing: reports: intermittent Context/Activities at Onset: reports: light activity Modifying Factors: improves with: lying down (worsens dyspnea) Associated Symptoms: reports: cough, shortness of breath. denies: back/neck pain, chest pain, diarrhea, dizziness, fever/chills, sinus congestion/drainage, nausea, vomiting Similar Symptoms Previously?: Yes Recently seen or treated by another doctor?: Yes Review of Systems - Adult - REVIEW OF SYSTEMS - ADULT Constitutional: denies: chills, fever Eyes: reports: no symptoms reported Ears, Nose, Mouth & Throat: reports: no symptoms reported Cardiovascular: reports: edema, orthopnea. denies: chest pain, palpitations, syncope Respiratory: reports: dyspnea on exertion, shortness of breath. denies: cough Gastrointestinal: reports: abdominal pain. denies: diarrhea, nausea, vomiting Genitourinary: denies: dysuria, frequency, flank pain Musculoskeletal: denies: back pain, joint pain, neck pain Integumentary: reports: no symptoms reported Neurological: denies: dizziness/vertigo, headache/migraines, syncope Psychiatric: reports: no symptoms reported Endocrine: reports: no symptoms reported Hematologic/Lymphatic: reports: no symptoms reported Allergic/Immunologic: reports: no symptoms reported All Other Systems: Reviewed and Negative Past History - Adult - PAST MEDICAL HISTORY-ADULT Review of Records: reports: Old Records Reviewed, Nursing Assessment Review, Medications Reviewed, Social history reviewed & non-contributory. Major Childhood Illnesses: reports: denies history Cardiovascular: reports: CHF, HTN, hyperlipidemia Respiratory: reports: asthma, COPD Gastrointestinal: reports: GERD Obstetrical/Gynecological: reports: other (post menopausal) Genitourinary: reports: kidney disease Musculoskeletal: reports: other (carpal tunnel syndrome bilaterally) Neurological: reports: denies history Psychiatric: reports: anxiety, schizophrenia Endocrine/Immune: reports: Diabetes Other Conditions: reports: denies history - PRIOR SURGERIES/PROCEDURES Surgical/Procedure History: reports: BTL, orthopedic (extremity) (carpal tunnel bilateral/ R foot), joint replacement (knee), back/neck (back), other (bilateral carpal tunnel release/abdominal surgery) - PRIOR HOSPITALIZATIONS Prior Hospitalizations: reports: for similar symptoms - IMMUNIZATION STATUS Childhood Immunizations: See Nurse Assessment Flu Vaccine: See Nurse Assessment - FAMILY HISTORY Family History: reviewed, not pertinent - SOCIAL HISTORY Smoking: cigarettes Provider spent 3-5 mins advising pt. on dangers of tobacco.: Discussed manners to quit use, and f/u contacts for add'l counseling. Substance Use: denies Physical Exam-General - PHYSICAL EXAM-ADULT Initial Vital Signs Reviewed: Yes - CONSTITUTIONAL General Appearance: alert, no apparent distress - EYES Eyes: PERRL/EOMI - HEAD, EARS, NOSE, MOUTH & THROAT HENMT: normocephalic/atraumatic, moist mucous membranes, normal ENT inspection - NECK Neck: full range of motion, supple, normal inspection - RESPIRATORY Respiratory: no pleuratic chest pain, no respiratory distress, no accessory muscle use, crackles (bilateral) - CARDIOVASCULAR Cardiovascular: normal peripheral pulses, regular rate, rhythm, other (2+ bilateral LE pitting edema) - GASTROINTESTINAL (ABDOMEN) Abdominal Exam: normal bowel sounds, non tender, soft - LYMPHATIC Lymphatic: no adenopathy - MUSCULOSKELETAL Back Exam: normal inspection, no CVA tenderness, no vertebral tenderness Extremity: normal range of motion, non-tender, normal inspection, pedal edema (2+ bilateral LE pitting edema) - SKIN Integumentary: normal color, normal turgor, warm/dry - NEUROLOGIC Neurologic: grossly normal, no motor/sensory deficits - PSYCHIATRIC Psych/Mental Status: normal mood/affect, normal thought content, normal thought process, oriented x 3 Progress - PLAN OF CARE/RESULTS Progress/Plan/Lab Results: Orders Category Date Time Status CHEST-PORTABLE [RAD] Stat Exams 02/22/19 20:[address] ABDOMEN/PELVIS W/O CONTRAST [CT] Stat Exams 02/22/19 20:10 Ordered AMYLASE [CHEM] Stat Lab 02/22/19 20:10 Uncollected BNP [PRO B-NATRIURETIC PEPTIDE] Stat Lab 02/22/19 20:12 Uncollected CBC WITH ELECTRONIC DIFF [HEME] Stat Lab 02/22/19 20:10 Uncollected COMPREHENSIVE METABOLIC PANEL [CHEM] Stat Lab 02/22/19 20:10 Uncollected LIPASE [CHEM] Stat Lab 02/22/19 20:10 Uncollected MAGNESIUM [CHEM] Stat Lab 02/22/19 20:10 Uncollected URINALYSIS [URINALYSIS] Stat Lab 02/22/19 20:10 Uncollected Result Diagrams: 03/01/19 05:15 03/01/19 05:15 - XRAY 1 XRAY Study: Chest Impression: Abnormal ( Signed EXAM: CHEST-PORTABLE 02/22/2019 HISTORY: SOB TECHNIQUE: Erect AP portable at 2043 COMMENT: The chest is not as well- expanded as on 02/20/2019. The coarse atelectatic change in the right lower lobe and the opacity in the costophrenic angle region of the left base have apparently resolved. IMPRESSION: Improved bibasilar atelectasis versus pne umonia. Electronically signed by Saúl Castillo 02/22/2019 9:03 PM 02/22/192102 Interpreting Physician: Saúl Castillo MD Dictated Date/Time: 02/22/192101 cc: Sheree De La Cruz MD; Ciro Fall MD) Comparison with other Films: changes noted (02/20/19) - CT/MRI 1 CT Study: Abdomen, Pelvis Impression: See EMR Report Departure - Departure Date of Disposition Decision: 02/22/19 Time of Disposition Decision: 21:40 DIAGNOSIS: Missed dialysis, Volume excess Disposition: ADMITTED INPATIENT 09 Certified Medical Emergency: Emergent Condition: Good - Critical Care Note This patient required my direct & personal management of CC.: No Attestation - Physician/ JONAS Attestation Patient care was provided by Advanced Practice Provider:: No The physician spent face to face time with patient:: Yes Advanced Practice Provider documentation review:: Supervising physician onsite and consulted in the evaluation and care of this patient. The physician did have a face to face encounter with the patient. This chart was documented by the indicated scribe, (Mary Schumacher, Griselda) and accurately reflects the services I performed and decisions made by me, Sheree De La Cruz MD, as attested by the provider's signature.
[2019-03-02] MEDS: ZOFRAN IV PRN (02:12)
[2019-03-02] MEDS: ZOFRAN ODT PO PRN ×2 (02:20→21:10)
[2019-03-02] MEDS: DUONEB (A & A) INH SCH ×6 (03:51→23:27)
[2019-03-02] MEDS: NOVOLOG MIX 70/30 SUBQ SCH ×2 (06:19→17:29)
[2019-03-02] MEDS: HUMULIN R SUBQ SCH ×4 (06:19→20:30)
[2019-03-02 06:20] LABS: CALCIUM 7.7 mg/dL (8.8-10.2); CREATININE 5.8 mg/dL (0.5-0.9); POTASSIUM 5.6 mmol/L (3.5-5.1)
[2019-03-02] MEDS: PRILOSEC PO SCH (06:20)
[2019-03-02] MEDS: ZYVOX PO SCH ×2 (10:07→20:29)
[2019-03-02] MEDS: MIRALAX PO SCH ×2 (10:07→20:29)
[2019-03-02] MEDS: NORVASC PO SCH (10:08)
[2019-03-02] MEDS: PREDNISONE PO SCH (10:08)
[2019-03-02] MEDS: FOLIC ACID PO SCH (10:08)
[2019-03-02] MEDS: TOPROL XL PO SCH (10:08)
[2019-03-02] MEDS: ELIQUIS PO SCH ×2 (10:08→20:29)
[2019-03-02] MEDS: APRESOLINE PO SCH ×3 (10:08→20:29)
[2019-03-02] MEDS: MYCOSTATIN SUSP PO SCH ×4 (10:08→20:29)
[2019-03-02] MEDS: NORCO-10 PO PRN ×2 (10:13→22:45)
--- NOTE | 2019-03-02 13:06 | INFECTIOUS DISEASE PROGRESS NO ---
DATE: 03/02/2019 PRESENT ILLNESS: The patient has bilateral pneumonia and oral candidiasis. MEDICATIONS: This is the fifth day of treatment with Levaquin, Zyvox, and meropenem, and this is the first day of treatment with nystatin. PHYSICAL EXAMINATION: Vital Signs: Temperature is 97.9 degrees, pulse 74, respirations 18, blood pressure 111/43. General: This is a chronically ill-appearing, middle-aged female. She is in no acute distress. HEENT: She can hear my spoken words and see near objects. She still has a white coating of her tongue. Neck: No pain with movement. Lungs: Clear to auscultation. Cardiovascular: Heart rate is regular. Abdomen: Soft and nontender. Extremities: The patient has a functional AV fistula in the right arm, and a nonfunctional one in the left arm. Neurologic: The patient is alert. She can move her extremities. She does not have a tremor. She talks in a coherent fashion. IMAGING AND LABORATORY DATA: There is no new lab for today. The patient's chest x-ray showed decreased infiltrates bilaterally. Yesterday's CBC showed a white count of 7110, hemoglobin 9.6, and platelet count 203,000. Creatinine is 6.7. GFR is 8. ASSESSMENT AND PLAN: The patient has pneumonia and oral candidiasis. I am going to continue Levaquin, Zyvox, meropenem, and nystatin swish and swallow. COMORBIDITIES: Diabetes mellitus, end-stage renal disease with dialysis, congestive heart failure, and obesity. cc: Lewis Rosenberg MD
[2019-03-02] MEDS: PATIENT'S OWN MED LEFT EYE SCH ×2 (14:44→20:30)
--- NOTE | 2019-03-02 14:46 | PROGRESS NOTE ---
DATE: 03/02/2019 SUBJECTIVE: This patient is in pain at this moment. She is complaining of left upper quadrant pain and left thoracic area pain which is reproducible with palpation and movement. I requested to give her some pain medication for that. She seems to be breathing better so I will continue with same management. The wheezing has been improving slowly and today she has some faint end expiratory wheezing, so I will decrease the dose of the steroids from twice a day to once a day and hopefully that will help also with the blood sugar. OBJECTIVE: Vital Signs: Temperature 98.3 degrees, pulse 77, respiratory rate 21, blood pressure 125/71, oxygen saturation 100% on 3 L of nasal cannula. HEENT: Head normocephalic. No trauma. PERRLA. Neck: Supple. No JVD. No masses. Central trachea. Chest: Decreased breath sounds globally with prolonged expiratory phase. Some crepitus at the bases with some crackles as well and expiratory wheezing which is faint. Abdomen: Soft. Tenderness to palpation at the level of the right upper quadrant and also is tender to palpation on the left side of the thoracic area, at the level of the mid axillary line, is tender to palpation. Extremities: No edema. No clubbing. No cyanosis. Neurological: The patient is awake, alert. She is oriented. She is following commands. LABORATORY: Sodium 137, potassium 5.6, chloride 95, bicarbonate 25, BUN 55, creatinine 5.8, glucose 262, calcium 7.7. ASSESSMENT AND PLAN: 1. Acute hypoxemic respiratory failure, multifactorial due to pneumonia, chronic obstructive pulmonary disease exacerbation, and fluid overload. Continue with the same management for now. Hopefully tomorrow she will get dialysis again. I will decrease the dose of the steroids from twice a day to once a day by mouth. We will monitor this patient closely. 2. Left upper quadrant pain with left thoracic area pain. She will get some [place] at this moment. She is on omeprazole already. I do not see any signs of infection. She is having bowel movements. No diarrhea. No fever. No chills. 3. Pneumonia, as above. 4. Chronic obstructive pulmonary disease exacerbation. I will decrease the dose of the steroids from twice a day to once a day and I will monitor. 5. End-stage renal disease. Continue with dialysis as scheduled. 6. Hyperkalemia, mild. Hopefully, tomorrow it will get better after dialysis. 7. Physical deconditioning. I have requested an evaluation by physical therapy and occupational therapy today. cc: Duke Gallo MD
--- NOTE | 2019-03-02 21:10 | PROVIDER PROGRESS NOTE ---
Progress Note Subjective: Patient is tearful about wanting to go home. She denies shortness of breath, chest pain, change in appetite, or nausea and vomiting. Objective: temperature 98.3, pulse 77, respirations 21, blood pressure 125/71, O2 sat 100% on 3 L nasal cannula. General: chronically ill appearing -[place]anese female sitting up to the side of the bed in no acute distress HEENT: normocephalic, atraumatic, pupils equal and reactive. Mucous membranes moist with white cluster patches on tongue. Trachea midline. Skin: Warm and dry. Neck: Supple, JVD observed in the upright position. Cardiovascular: S1S2, regular rate and rhythm. No murmurs or gallops noted. Respiratory: few crackles notes to bilateral bases posteriorly Abdomen: soft, Nontender, nondistended. Bowel sounds present. : not inspected Extremities: No edema, clubbing, or cyanosis. Neurological: alert and oriented to person, place, and time. Labs: sodium 137, potassium 5.6, chloride 95, carbon dioxide 25, BUN 55, creatinine 5.8. Intake zero, output 1560. Impression: Chronic kidney disease stage 5D. She had her routine hemodialysis treatment yesterday with no complications. She will be followed in the outpatient setting. Blood pressure. In target. Fluid volume. Slightly expanded. Not requiring extra hemodialysis treatment. She is not in any signs of distress. Improved overall. rg Anemia. Stable. Electrolytes and acid base balance. Stable. Nutrition. Adequate. Ambulation. Ambulating in room. Medication review.
[2019-03-03] MEDS: DUONEB (A & A) INH SCH ×4 (04:01→19:44)
[2019-03-03] MEDS: PRILOSEC PO SCH (06:07)
[2019-03-03] MEDS: NOVOLOG MIX 70/30 SUBQ SCH ×2 (06:08→17:45)
[2019-03-03] MEDS: HUMULIN R SUBQ SCH ×3 (06:09→18:49)
[2019-03-03] MEDS ORDERED: NS 2,000 ML MISC PRN (06:27)
[2019-03-03] MEDS ORDERED: HEPARIN IV PRN (06:27)
[2019-03-03] MEDS ORDERED: TIGHT: 0.2 ML/HR FOR DIALYSIS MISC PRN (06:27)
--- NOTE | 2019-03-03 08:57 | INFECTIOUS DISEASE PROGRESS NO ---
DATE: 03/03/2019 PRESENT ILLNESS: The patient has bilateral pneumonia, oral Candidiasis, and she continues to complain of abdominal pain. MEDICATIONS: This is the 6 day of treatment with Levaquin, Zyvox, and meropenem, and day 2 of treatment with nystatin swish and swallow. PHYSICAL EXAMINATION: Vital signs: Temperature is 98, pulse 70, respirations 17, blood pressure 113/61. General: This is a chronically ill-appearing middle-aged female. She is in no acute distress. Head, Eyes, Ears, Nose, and Throat: She can hear my spoken words and see near objects. She has lost most of the white coating on her tongue that she had yesterday. Neck: No stiffness. Lungs: Clear to auscultation. Cardiovascular: Heart rate is regular. Abdomen: Soft and nontender. Extremities: The patient has a functional AV fistula in the right arm and a nonfunctional one in the left arm. Neurologic: The patient is alert. She can move her extremities. She does not have a tremor. LAB AND X-RAY: There is no new lab or x-ray for today. ASSESSMENT AND PLAN: Patient has pneumonia, abdominal pain, and oral Candidiasis. I am going to continue Levaquin, Zyvox, meropenem, and nystatin swish and swallow. I have ordered a lipase and amylase level, a CT scan with no IV contrast of the chest, abdomen, and pelvis, a CBC, and a liver panel. COMORBIDITIES: Diabetes mellitus, end-stage renal disease with dialysis, congestive heart failure, and obesity. cc: Lewis Rosenberg MD
--- NOTE | 2019-03-03 10:00 | PROGRESS NOTE ---
DATE: 03/03/2019 SUBJECTIVE: This patient seems to be feeling better. She is eating breakfast at the bedside. She is still complaining of some mild shortness of breath, but she wants to go home. Her wheezing has improved. Pending laboratory at this moment. OBJECTIVE: Vital signs: Temperature 98 degrees, pulse 74, respiratory rate 16, blood pressure 113/61, oxygen saturation 98 on 3 L of nasal cannula. HEENT: Head normocephalic, no trauma. PERRLA. Neck: Is supple. No JVD. No masses. Central trachea. Chest: Decreased breath sounds globally with prolonged expiratory phase. Some crepitus at the bases. Mild crackles. Abdomen: Soft. Some tenderness to palpation at the level of the right upper quadrant, but better compared with yesterday as well as the left side of the thoracic area at the midline axillary line. Extremities: No edema. No clubbing. No cyanosis. Neurological examination: She is awake, alert. She is oriented x3. She is following commands. LABORATORY: Pending lab work today. ASSESSMENT AND PLAN: 1. Acute hypoxemic respiratory failure, multifactorial due to pneumonia, COPD exacerbation and fluid overload. Continue with same management for now. She will get dialysis today. Infectious Disease Department has requested a CT scan of the abdomen, pelvis and chest. We will wait for this. I do believe this patient is getting better. 2. Left upper quadrant pain and left thoracic area pain. Continue with pain medication. Let us wait for the CT scan results. 3. Pneumonia as above. 4. Chronic obstructive pulmonary disease exacerbation. Continue with the same dose of the steroids that I have decreased yesterday. 5. End-stage renal disease. She is getting dialysis today. 6. Hyperkalemia. She will get dialysis today, hopefully this will take care of it. 7. Physical deconditioning. Continue physical therapy and occupational therapy. cc: Duke Gallo MD
[2019-03-03 10:26] LABS: BASO# 0.01 X1000 (0.0-0.2); BASO% 0.1 % (0.0-0.8); EOS# 0.05 X1000 (0.0-0.7); EOS% 0.4 % (0.0-10.0); HEMATOCRIT 32.8 % (37.0-47.0); HEMOGLOBIN 9.8 g/dL (12.0-16.0); IMM GRAN# 0.08 X1000 (0.0-0.04); IMM GRAN% 0.6 % (0.0-0.5); LYMPH# 1.75 X1000 (1.2-3.4); LYMPH% 12.9 % (20.5-51.1); MCH 28.2 PG (27-31); MCHC 29.9 g/dL (33-37); MCV 94.5 FL (81-99); MONO# 0.95 X1000 (0.11-0.59); MPV 11.2 FL (7.4-10.4); NEUT# 10.68 X1000 (1.4-6.5); PLT 230 X1000 (130-400); RBC 3.47 XMIL (4.2-5.4); RDW 15.4 % (11.5-14.5); WBC 13.52 X1000 (4.8-10.8)
[2019-03-03 10:53] LABS: ALB/GLOB RATIO 1.3; ALBUMIN 3.4 g/dL (3.5-5.0); DIRECT BILIRUBIN 0.1 mg/dL (0.00-0.20); TOTAL BILIRUBIN 0.31 mg/dL (0.20-1.00)
[2019-03-03 11:00] LABS: CALCIUM 7.3 mg/dL (8.8-10.2); CREATININE 8.2 mg/dL (0.5-0.9); POTASSIUM 4.8 mmol/L (3.5-5.1)
[2019-03-03] MEDS: FOLIC ACID PO SCH ×2 (11:45→12:18)
[2019-03-03] MEDS: APRESOLINE PO SCH ×3 (11:45→18:52)
[2019-03-03] MEDS: ZYVOX PO SCH ×2 (11:46→12:19)
[2019-03-03] MEDS: LEVAQUIN PO SCH ×2 (11:46→12:19)
[2019-03-03] MEDS: TOPROL XL PO SCH ×2 (11:46→12:20)
[2019-03-03] MEDS: ELIQUIS PO SCH ×2 (11:46→12:18)
[2019-03-03] MEDS: NORVASC PO SCH ×2 (11:46→12:20)
[2019-03-03] MEDS: MYCOSTATIN SUSP PO SCH ×3 (11:47→18:51)
[2019-03-03] MEDS: PATIENT'S OWN MED LEFT EYE SCH (11:47)
[2019-03-03] MEDS: MIRALAX PO SCH ×2 (11:47→12:19)
[2019-03-03] MEDS: PREDNISONE PO SCH ×2 (11:47→12:20)
[2019-03-03] MEDS: ZOFRAN IV PRN (11:48)
[2019-03-03 11:49] LABS: AMYLASE 64 U/L (20-200); LIPASE 17 U/L (13-60)
[2019-03-03] MEDS: ZOFRAN ODT PO PRN (11:51)
--- NOTE | 2019-03-03 11:53 | Diag Imaging Result Doc PS360 ---
EXAM: CT THORAX/ABD/PELVIS W/O CON INDICATION: pneumonia, abdominal pain TECHNIQUE: This exam was performed using automated exposure control, adjustment of mA or kV according to patient size, and/or use of iterative reconstruction technique. COMPARISON: CT chest dated 02/25/[address] abdomen and pelvis dated 02/22/2019 FINDINGS: CHEST: There has been a significant improvement in the diffuse airspace infiltrates seen bilaterally on the previous chest CT. However, patchy consolidation with tree-in-bud opacities do persist bilaterally. Right middle lobe and inferior right upper lobe atelectasis has increased and atelectasis have developed in the lingula and the anterior left lower lobe the base. The 1 cm pleural-based nodule seen on the previous study is stable. It is actually at the superior tip of the right lower lobe rather than the right upper lobe, which was suggested on the previous study. There is no pleural fluid collection and no pneumothorax. The mediastinum is stable. ABDOMEN/PELVIS: The hypodense left hepatic lobe nodule seen on several prior studies is stable as compared to the previous study. The gallbladder, spleen, pancreas, and adrenal glands are stable and are essentially unremarkable. There are stable calcifications at the renal theodore bilaterally suggesting vascular calcifications or perhaps nonobstructing intrarenal stones. The kidneys are grossly unremarkable, otherwise. The urinary bladder is only slightly distended and is unremarkable. The reproductive tract is unremarkable as imaged. There is mild uncomplicated sigmoid colonic diverticulosis. The appendix is normal. There is a fair amount stool in the colon and rectum which could indicate mild constipation. The remainder of the GI tract is essentially unremarkable. There are extensive aortoiliac atherosclerotic calcification is again noted. IMPRESSION: 1.Interval significant improvement of the bilateral airspace consolidation seen on the previous study. 2.Interval slight worsening of atelectasis in the right middle lobe and inferior right upper lobe and development of atelectasis at the anterior left lung base. 3.Possible mild constipation. Otherwise, the abdomen and pelvis are essentially stable as compared to the previous study with no other sign of acute pathology. Electronically signed by David Orantes 03/03/2019 11:51 AM
[2019-03-03 13:04] VITALS: BP 118/49
[2019-03-03] MEDS ORDERED: MERREM 1 GM in NS 50 ML IV ONE (17:00)
--- NOTE | 2019-03-03 18:03 | PROVIDER PROGRESS NOTE ---
Progress Note Subjective: She voices abdominal pain and readiness to go home. She denies any shortness of breath or chest pain or nausea and vomiting. Objective: temperature 98.1, pulse 79, respirations 17, but pressure 102/46, 02 sat 91% on room air. General: chronically ill appearing -[place]incentian female sitting up to the side of the bed in no acute distress HEENT: normocephalic, atraumatic, pupils equal and reactive. Mucous membranes moist. Trachea midline. Skin: Warm and dry. Neck: Supple, JVD observed in the upright position. Cardiovascular: S1S2, regular rate and rhythm. No murmurs or gallops noted. Respiratory: crackles and wheezes noted to bilateral bases posteriorly Abdomen: soft, Nontender, nondistended. Bowel sounds present. : not inspected Extremities: No edema, clubbing, or cyanosis. Neurological: alert and oriented to person, place, and time. Labs: intake 418, output 0 Impression: Chronic kidney disease stage 5D. She is due her routine hemodialysis treatment today with a 2 K bath and 3-4L removal. Blood pressure. In target. Fluid volume. Slightly expanded. She will receive her hemodialysis treatment today. Anemia. Stable. Electrolytes and acid base balance. No labs. Nutrition. Adequate. Ambulation. PT/OT now consulted. Medication review. Prednisone decreased.
--- NOTE | 2019-03-03 20:28 | INFECTIOUS DISEASE PROGRESS NO ---
DATE: 03/03/[address] scan report came back today. The patient's pneumonia is clearing up very well. CT scan of the abdomen showed no abnormality except for mild constipation. The patient is being sent home today on Levaquin 250 mg daily for 14 days. I have requested that the patient have an appointment in my office in 2 weeks at which time she will be examined, and a repeat chest x-ray will be taken. cc: Lewis Rosenberg MD
--- NOTE | 2019-03-04 13:05 | DISCHARGE SUMMARY ---
ADMISSION DATE: 02/23/2019 DISCHARGE DATE: 03/03/2019 DISCHARGE DIAGNOSIS: 1. Acute hypoxemic respiratory failure due to a combination of pneumonia, chronic obstructive pulmonary disease, and fluid overload. 2. Left upper quadrant pain and left thoracic pain area, better. 3. Bilateral multi focal pneumonia. 4. Chronic obstructive pulmonary disease exacerbation. 5. Fluid overload. 6. End-stage renal disease. 7. Hyperkalemia, resolved. PROCEDURES PERFORMED: 1. Abdomen and pelvis CT scan dated 02/22/2019, impression: Right middle lobe pneumonia, most likely superimposed on bronchiectasis and fibrotic changes. No evidence of acute intra- abdominal or pelvic disease. 2. Chest x-ray dated 02/22/2019, impression: Improved bibasilar atelectasis versus pneumonia. 3. Chest x-ray dated 02/24/2019, impression: Interval worsening. 4. Chest CT scan dated 02/25/2019, impression: Extensive patchy airspace infiltrates bilaterally including tree in bud. The opacities likely represent representing an atypical infectious process, fairly rapid development of mild bronchiectasis since the previous study bilaterally. 5. Chest x-ray dated 03/01/2019, impression: Interval improvement. 6. Chest abdomen and pelvis CT scan dated 03/03/2019, impression: Interval significant improvement of the bilateral airspace consolidations seen on the previous study, worsening atelectasis in the right middle lobe and inferior right upper lobe and development of atelectasis of the anterior left lung base, possible mild constipation, abdomen and pelvis stable compared as the previous study. CONSULT: Nephrology Department, Dr. Shepherd. Infectious Disease Department, Dr. Rosenberg. HOSPITAL COURSE: A 58-year-old female with a past medical history of end-stage renal disease, CHF, hypertension, COPD, who apparently missed her dialysis session again. She was hospitalized recently for similar complaints and shortness of breath due to missing dialysis. She states that she got out of the hospital and she was supposed to have dialysis the day of admission on 02/23/2019, apparently the dialysis center was closed. She was evaluated in the emergency department. It was suspected that she was having volume overload. At the moment of the practitioner medical examination during admission, she denied headache, fever, chills, chest pain, or hemoptysis but she had some shortness of breath and she was not feeling well, we did an abdomen and pelvis CT scan that showed right middle lobe pneumonia, likely superimposed or on bronchiectasis and fibrotic changes. No problem in the abdomen or pelvis, Nephrology Department started dialysis on this patient and she was doing fine. She started wheezing and having more cough and shortness of breath, so she was placed on oxygen. Chest CT scan dated 02/25/2019 showed an extensive patchy airspace infiltrate bilaterally including opacities likely representing an atypical infectious process, infectious disease department evaluated this patient. They managed the antibiotics. This patient was feeling better on a daily basis. She was placed also on steroids, which we have decreased the dose slowly, she received multiple rounds of dialysis and antibiotics. Today, we have decided to do a new CT of the abdomen, pelvis and chest that showed a significant improvement of the lesion of the airspace consolidation at the level of the lungs, Infectious Disease Department re-evaluated this patient before discharging this patient today and she will be discharged with levofloxacin for 14 days and follow up with Dr. Rosenberg as an outpatient. Also, she will need to follow up with Dr. Shepherd and dialysis as scheduled, her last dialysis was today, she has been complaining of some pain to palpation at the level of the lower thoracic area on the left side and also her left upper quadrant, that gets better with pain medication. VITAL SIGNS: Temperature 97.8 degrees, pulse 77, respiratory rate 16, blood pressure 118/49, oxygen saturation 98 on 3 L of nasal cannula. We will check for home O2 evaluation to see if this patient will need to go home with oxygen. LABORATORY: WBC 13.5, hemoglobin 9.8, hematocrit 32.8, platelets 230,000, sodium 140, potassium 4.8, chloride 97, bicarbonate 23, BUN 83, glucose 66, calcium 7.3, albumin 3.4. DISCHARGE MEDICATIONS: DuoNeb 3 mL inhaler q. 4 hours as needed, Ventolin HFA 2 puff inhaled 4 times a day as needed, amlodipine 10 mg p.o. daily, Eliquis 2.5 mg p.o. b.i.d., Durezol 1 drop in the left eye b.i.d., Advair 250/50 Diskus 1 puff inhaled b.i.d., folic acid 1 mg p.o. daily, furosemide 40 mg p.o. daily, hydralazine 25 mg p.o. 3 times a day, [place] 10 one tablet p.o. t.i.d. as needed, insulin 70/30, NovoLog 15 units subcutaneously b.i.d., levofloxacin 250 mg p.o. daily, losartan 50 mg p.o. daily, metoprolol succinate 50 mg p.o. daily, prednisone 20 mg p.o. as directed, the same way she was taking at home. Velphoro 1 tablet p.o. a.c., Spiriva 1 puff inhaler daily, and Zanaflex 4 mg p.o. b.i.d. as needed. TIME DISCHARGING THIS PATIENT: 35 minutes. cc: Duke Gallo MD
== END 2019-03-03 19:57 | disposition home or self-care (01) | DRG 291 ==
LOC: SUPCPDRO → ED 19:41 → SUATTDRO 02-23 01:46 → EDIPHOLD 02-23 01:46 → 1N 02-23 13:15
PROVIDERS: ATTEND Internal Medicine

== ENCOUNTER 2019-05-05 01:45 | Inpatient (IN) ==
[~2019-05-05 01:45] MED LIST: DUONEB (A & A) INH ONE; SOLU-MEDROL IV ONE
[2019-05-05 02:01] LABS: BLOOD TYPE ARTERIAL; SAMPLE BLOOD
[2019-05-05 02:04] LABS: BE -1.2 mmoll (-3.0-3.0); HCO3-(ACT) 23.7 mmoll (20.0-26.0); METHB 1.7 % (0.0-1.5); O2(CT) 12.4 mL/dL (15.0-23.0); PCO2(98.6) 43 mmHg (35-45); PO2(98.6) 54 mmHg (60-100); SAO2 89.9 % (95.0-100.0); THB 10.5 g/dL (11.5-17.4); pH(98.6) 7.36 (7.35-7.45)
[2019-05-05 02:05] LABS: ALLEN TEST NO; MODALITY ROOM AIR; O2HB 84.1 % (95.0-99.0)
[2019-05-05] MEDS ORDERED: SOLU-MEDROL IM ONE (02:42)
--- NOTE | 2019-05-05 02:49 | PROVIDER DOCUMENTATION ---
This chart was entered by Mary Schumacher Scribe, acting as scribe for Tony Bettencourt MD. HPI-General Adult - General Chief Complaint: Shortness of Breath Stated Complaint: COPD Time Seen by Provider: 05/05/19 01:45 Source: patient Allergies/Adverse Reactions: Patient Allergies Allergy/AdvReac Type Severity Reaction Status Date / Time sulfamethoxazole Allergy Severe ANAPHYLAXIS Verified 04/20/19 00:27 [From ] trimethoprim [From ] Allergy Severe ANAPHYLAXIS Verified 04/20/19 00:27 morphine Allergy Intermediate HIVES Verified 04/20/19 00:27 Penicillins Allergy Mild HIVES Verified 04/20/19 00:27 Home Medications: Home Medication List Medication Instructions Recorded Confirmed Last Taken Type Amlodipine Besylate 10 mg PO DAILY 12/31/18 04/20/19 Unknown History Difluprednate [Durezol] 1 drp LEFT EYE BID 12/31/18 04/20/19 Unknown History Losartan Potassium 50 mg PO DAILY 12/31/18 04/20/19 Unknown History Metoprolol Succinate 50 mg PO DAILY 12/31/18 04/20/19 Unknown History Sucroferric Oxyhydroxide [Velphoro] 1 tab PO AC 12/31/18 04/20/19 Unknown History Tizanidine [Zanaflex] 4 mg PO BID PRN 12/31/18 04/20/19 Unknown History Apixaban [Eliquis] 2.5 mg PO BID #60 tab 01/04/19 04/20/19 Unknown Rx Hydralazine [Apresoline] 25 mg PO 0800,1400,2100 #90 tab 01/04/19 04/20/19 Unknown Rx Insulin Novolog 70/30 [Novolog Mix 15 unit SUBQ BID AC #0 insuln.pen 01/04/19 04/20/19 Unknown Rx 70/30] Albuterol 2.5MG/Ipratrop 0.5MG 3 ml INH Q4H PRN #30 neb 02/19/19 04/20/19 Unknown Rx [Duoneb (A & A)] Albuterol Sulfate Inhaler 2 puff INH [id number] PRN #1 inhaler 02/19/19 04/20/19 Unknown Rx [Ventolin Hfa] Fluticasone/[place] 250/50 INH 1 puff INH RTBID #1 inhaler 02/19/19 04/20/19 Unknown Rx [Advair 250/50 Diskus] Furosemide [Lasix] 40 mg PO DAILY #30 tab 02/19/19 04/20/19 Unknown Rx Tiotropium [place] Inhaler 1 puff INH RTDAILY #1 inhaler 02/19/19 04/20/19 Unknown Rx [Spiriva] Folic Acid 1 mg PO DAILY #60 tab 03/03/19 04/20/19 Unknown Rx Doxycycline 100 mg PO BID #30 tab 04/17/19 04/20/19 Unknown Rx Oxycodone/APAP 10 mg/325 mg 1 ea PO Q4H PRN PRN #20 tab 04/17/19 04/20/19 Unknown Rx [Percocet-10] ROSUVAstatin [Crestor] 10 mg PO DAILY tab 04/17/19 04/20/19 Unknown Rx - History of Present Illness -Gen Adult Nature of Presenting Problems: pt is a 58 yr old black female with history of ESRD (received hemodialysis at [facility]), severe COPD requiring continuous home oxygen, HTN, diabetes with chronic painful right heel diabetic ulcer,chronic pain and tobacco abuse who presents via EMS with increased shortness of breath since tonight . Just seen in ER at [facility] [address] Anaya who consulted Dr. Berrios who does not recommend any acute intervention for right heel ulcer. pt was also seen by PCP for foot pain yesterday. pt reports dyspnea onset this evening and worsening, pt denies fever/chills, no other complaints. Pt is on room air with Spo2 of 96-100% Location of Pain/Injury: reports: feet Pain Radiation: reports: no radiation Quality of Pain: reports: aching Severity: reports: severe Onset/Duration: reports: gradual Timing: reports: still present, getting worse Context/Activities at Onset: reports: light activity Modifying Factors: improves with: nothing Associated Symptoms: reports: shortness of breath, trouble walking (foot pain/ulcerations). denies: chest pain Similar Symptoms Previously?: Yes Recently seen or treated by another doctor?: Yes Review of Systems - Adult - REVIEW OF SYSTEMS - ADULT Constitutional: denies: chills, fever Eyes: reports: no symptoms reported Ears, Nose, Mouth & Throat: reports: no symptoms reported Cardiovascular: reports: edema. denies: chest pain, syncope Respiratory: reports: cough, shortness of breath, wheezing Gastrointestinal: denies: abdominal pain, nausea Genitourinary: reports: no symptoms reported Musculoskeletal: reports: bone pain, joint pain Integumentary: reports: skin sores/ulcer Neurological: reports: no symptoms reported Psychiatric: reports: no symptoms reported Endocrine: reports: no symptoms reported Hematologic/Lymphatic: reports: no symptoms reported Allergic/Immunologic: reports: no symptoms reported All Other Systems: Reviewed and Negative Past History - Adult - PAST MEDICAL HISTORY-ADULT Review of Records: reports: Old Records Reviewed, Nursing Assessment Review, Medications Reviewed, Social history reviewed & non-contributory. Major Childhood Illnesses: reports: denies history Cardiovascular: reports: CHF, HTN, hyperlipidemia Respiratory: reports: asthma, COPD Gastrointestinal: reports: GERD Obstetrical/Gynecological: reports: other (post menopausal) Genitourinary: reports: ESRD, kidney disease Musculoskeletal: reports: other (carpal tunnel syndrome bilaterally) Neurological: reports: denies history Psychiatric: reports: anxiety, schizophrenia Endocrine/Immune: reports: Diabetes Other Conditions: reports: other (CHronic pain) - PRIOR SURGERIES/PROCEDURES Surgical/Procedure History: reports: BTL, orthopedic (extremity) (carpal tunnel bilateral/ R foot), joint replacement (knee), back/neck (back), other (bilateral carpal tunnel release/abdominal surgery) - PRIOR HOSPITALIZATIONS Prior Hospitalizations: reports: for similar symptoms - IMMUNIZATION STATUS Childhood Immunizations: See Nurse Assessment Flu Vaccine: See Nurse Assessment - FAMILY HISTORY Family History: reviewed, not pertinent - SOCIAL HISTORY Smoking: cigarettes Provider spent 3-5 mins advising pt. on dangers of tobacco.: Discussed manners to quit use, and f/u contacts for add'l counseling. Living Situation: alone Physical Exam-General - PHYSICAL EXAM-ADULT Initial Vital Signs Reviewed: Yes - CONSTITUTIONAL General Appearance: alert, no apparent distress, obese - EYES Eyes: PERRL/EOMI - HEAD, EARS, NOSE, MOUTH & THROAT HENMT: normocephalic/atraumatic, moist mucous membranes, normal ENT inspection - NECK Neck: non-tender, full range of motion, supple, normal inspection - RESPIRATORY Respiratory: chest non-tender, rhonchi (diffuse), wheezing (diffuse) - CARDIOVASCULAR Cardiovascular: normal peripheral pulses, regular rate, rhythm - GASTROINTESTINAL (ABDOMEN) Abdominal Exam: normal bowel sounds, non tender, soft - LYMPHATIC Lymphatic: no adenopathy - MUSCULOSKELETAL Back Exam: no CVA tenderness Extremity: other (dialysis fistula over right upper arm, old right heel diabetic ulcer with black eschar without fluctuance) - SKIN Integumentary: decubitus (decubitis ulceration right heel) - NEUROLOGIC Neurologic: grossly normal - PSYCHIATRIC Psych/Mental Status: normal mood/affect Progress - PLAN OF CARE/RESULTS Progress/Plan/Lab Results: Vital Signs - 8 hr 05/05/19 01:40 05/05/19 01:50 Temperature 98.5 F Pulse Rate 84 84 Respiratory Rate 20 18 Blood Pressure 166/76 O2 Sat by Pulse Oximetry 97 96 Orders Category Date Time Status Saline Loc NOW Care 05/05/19 01:39 Active CHEST-2 VIEWS [RAD] Stat Exams 05/05/19 01:39 Ordered ABG [RESP] Routine Lab 05/05/19 01:39 Ordered BLOOD CULTURE [BLDCUL] Stat Lab 05/05/19 01:39 Uncollected CBC WITH DIFF [HEME] Stat Lab 05/05/19 01:39 Ordered COMPREHENSIVE METABOLIC PANEL [CHEM] Stat Lab 05/05/19 01:39 Uncollected PRO B-NATRIURETIC PEPTIDE Stat Lab 05/05/19 01:40 Uncollected TROPONIN T HIGH SENSITIVITY Stat Lab 05/05/19 01:41 Uncollected Albuterol 2.5MG/Ipratrop 0.5MG [Duoneb (A & A)] Med 05/05/19 01:39 Discontinued 3 ml INH NOW ONE Methylprednisolone Sod Succ [Solu-Medrol] Med 05/05/19 01:39 Discontinued 125 mg IV NOW ONE Aerosol Treatments Routine Oth 05/05/19 01:40 Active Aerosol Treatments Stat Oth 05/05/19 01:40 Active Pulse Oximetry Stat Oth 05/05/19 01:39 Active EKG [EKG] Stat Ther 05/05/19 01:41 Ordered Result Diagrams: 05/05/19 03:02 05/05/19 03:02 - EKG 1 Time of EKG reading by physician:: 04:23 EKG Read and Signed by:: Tony Bettencourt Rate: 78 Rhythm: NSR [place]: left ST Wave: non-specific ST changes Comments: prolonged QT, no STEMI - XRAY 1 XRAY Study: Chest XRAY Interpretation: CHF - CONSULTS/PCP/HOSPITALIST Notification #1 *Consult/PCP/Hospitalist*: Dr. Stevens, hospitalist at [facility] Time Discussed: 04:25 Consult Disposition: Admit Departure - Departure Date of Disposition Decision: 05/05/19 Time of Disposition Decision: 04:32 DIAGNOSIS: ESRD (end stage renal disease), Elevated troponin CHF (congestive heart failure) Qualifiers: Heart failure type: unspecified Heart failure chronicity: acute on chronic Qualified Code(s): I50.9 - Heart failure, unspecified Disposition: ADMITTED INPATIENT 09 Certified Medical Emergency: Emergent Condition: Stable Referrals and Follow-Ups: None,PCP [Primary Care Provider] - - Critical Care Note This patient required my direct & personal management of CC.: No Attestation - Physician/ JONAS Attestation Patient care was provided by Advanced Practice Provider:: No The physician spent face to face time with patient:: Yes Advanced Practice Provider documentation review:: Supervising physician onsite and consulted in the evaluation and care of this patient. The physician did have a face to face encounter with the patient. This chart was documented by the indicated scribe, (Mary Schumacher Scribe) and accurately reflects the services I performed and decisions made by me, Tony Bettencourt MD, as attested by the provider's signature.
[2019-05-05 03:17] LABS: BASO# 0.02 X1000 (0.0-0.2); BASO% 0.1 % (0.0-0.8); EOS# 0.07 X1000 (0.0-0.7); EOS% 0.5 % (0.0-10.0); HEMATOCRIT 30.2 % (37.0-47.0); HEMOGLOBIN 9.3 g/dL (12.0-16.0); IMM GRAN# 0.04 X1000 (0.0-0.04); IMM GRAN% 0.3 % (0.0-0.5); LYMPH# 1.26 X1000 (1.2-3.4); LYMPH% 9.1 % (20.5-51.1); MCH 27.6 PG (27-31); MCHC 30.8 g/dL (33-37); MCV 89.6 FL (81-99); MONO# 1.16 X1000 (0.11-0.59); MONO% 8.4 % (1.7-9.3); MPV 10.7 FL (7.4-10.4); NEUT# 11.34 X1000 (1.4-6.5); NEUT% 81.6 % (42.2-75.2); PLT 292 X1000 (130-400); RBC 3.37 XMIL (4.2-5.4); RDW 15.9 % (11.5-14.5); WBC 13.89 X1000 (4.8-10.8)
[2019-05-05 03:38] LABS: ALBUMIN 3.4 g/dL (3.5-5.0); CALCIUM 7.6 mg/dL (8.8-10.2); POTASSIUM 4.2 mmol/L (3.5-5.1); TOTAL BILIRUBIN 0.3 mg/dL (0.20-1.00); TOTAL PROTEIN 6.6 g/dL (6.3-8.3)
[2019-05-05 03:45] LABS: CREATININE 13.1 mg/dL (0.5-0.9)
--- NOTE | 2019-05-05 04:36 | EKG Report ---
Test Performed on : 05/05/2019 04:22:24 AM Test Reason : pain Blood Pressure : / mmHG Vent. Rate : 078 BPM Atrial Rate : 078 BPM P-R Int : 148 ms QRS Dur : 090 ms QT Int : 440 ms P-R-T Axes : 053 -34 014 degrees QTc Int : 501 ms Normal sinus rhythm. Possible Left atrial enlargement Left axis deviation Cannot rule out Anteroseptal infarct (cited on or before 16-FEB-2019) Prolonged QT Abnormal ECG When compared with ECG of 10-APR-2019 11:44, (Unconfirmed) premature supraventricular complexes. are no longer present Questionable change in initial forces of Septal leads Nonspecific T wave abnormality has replaced inverted T waves in Inferior leads Unconfirmed Result
--- NOTE | 2019-05-05 06:45 | Diag Imaging Result Doc PS360 ---
CHEST-2 VIEWS - 05/05/2019 INDICATION: cough COMPARISON: 04/20/2019 FINDINGS: There are some mild patchy nonspecific infiltrates or areas of atelectasis in the lung bases bilaterally. Heart size is grossly normal. Pulmonary vascularity is somewhat distended. No pneumothorax or pleural effusion. Stable chronic right hemidiaphragm elevation. IMPRESSION: Mild nonspecific bibasilar infiltrates or areas of atelectasis. Electronically signed by Edgar Olmos 05/05/2019 6:42 AM
[2019-05-05] MEDS ORDERED: HEPARIN IV PRN (09:14)
[2019-05-05] MEDS ORDERED: NS 2,000 ML MISC PRN (09:14)
--- NOTE | 2019-05-05 10:15 | HISTORY AND PHYSICAL ---
PRIMARY CARE PHYSICIAN: Dr. Fall. CHIEF COMPLAINT: Shortness of breath. HISTORY OF PRESENTING ILLNESS: This is a 58-year-old, female, well known to the Hospitalist Service, who presents to [facility] with complaints of shortness of breath. She has known severe COPD, requiring continuous home oxygen. Also has an end-stage renal disease with hemodialysis at [facility] on Friday, Friday, Friday. She is also noted to have diabetes with a chronic painful right heel diabetic ulcer. Had been seen in the ER about 4 days ago, and consulted the general surgeon to look at any acute intervention for her right heel ulcer. Ordered an MRI of that right lower extremity. Yesterday, it was completed and showed soft tissue ulceration and cellulitis at the plantar aspect of the heel, with a decrease in prominence of the fluid collection that was suspicious for abscess on the previous study, and very mild increased bone marrow signal on STIR at the lateral aspect of the calcaneus at the plantar aspect, suspicious for very early osteomyelitis. I did speak this morning with general surgeon, Dr. Berrios, who requested that Wound Care be consulted, and to place Santyl with Laisha, and so she was admitted for further evaluation and treatment. PAST MEDICAL HISTORY: Congestive heart failure, diastolic dysfunction, hypertension, end-stage renal disease with dialysis on Friday, Friday, Friday, advanced COPD requiring home O2, hyperlipidemia, diabetes type 2, and a right heel diabetic foot ulcer. PAST SURGICAL HISTORY: Status post bilateral carpal tunnel syndrome, a right foot surgery, and right upper extremity AV graft. FAMILY HISTORY: Reviewed and noncontributory. SOCIAL HISTORY: She currently lives alone. She has a [id number] history of smoking. Denies any alcohol or illicit drug use. ALLERGIES: Sulfa, morphine, and penicillin. HOME MEDICATIONS: We will need to obtain a current list, reconcile, review, and restart when appropriate. Will place an order for nursing to update and confirm home medications. IMAGING AND LABORATORY DATA: Laboratory data showed a white blood cell count of 13.89, hemoglobin 9.3, hematocrit 30.2, platelets 292,000. ABG with a pH of 7.36, pCO2 of 43, PO2 of 54, bicarb 23.7, and this was on room air. Sodium 140, potassium 4.2, chloride 97, CO2 of 21, BUN of 46, creatinine 13.1, glucose 127. Troponin T high-sensitivity of 115. ProBNP is greater than 35,000. Chest x-ray showed mild nonspecific bibasilar infiltrates or areas of atelectasis. EKG showed normal sinus rhythm at 78. REVIEW OF SYSTEMS: She denied any fever, chills, blurred vision, dizziness, chest pain, coughing. She was positive for shortness of breath. Denied any abdominal pain, constipation, diarrhea, burning or hurting with urination. PHYSICAL EXAMINATION: VITAL SIGNS: On arrival, she had a temperature of 98.5 degrees, pulse 84, respirations 20, blood pressure 166/76, saturating 97% on room air. GENERAL: This is a 58-year-old, female, sitting on the side of the bed, answers questions appropriately. HEENT: Normocephalic, atraumatic. Normal ENT inspection. Oropharynx and nares are clear. Eyes: Pupils are equal, round, reactive to light and accommodation. Extraocular movements are intact. NECK: Normal inspection. Normal range of motion. LUNGS: Clear to auscultation bilaterally with equal lung expansion and chest wall movement. HEART: Regular rate and rhythm. No murmurs, rubs, or gallops. ABDOMEN: Soft, nontender, nondistended. Bowel sounds are present x4 quadrants. MUSCULOSKELETAL: She has 5/5 strength x4 extremities. She does have a right heel with tenderness and bogginess noted to the lateral aspect of the calcaneus and the plantar surface. NEUROLOGICAL: The cranial nerves II through XII appear grossly intact. ASSESSMENT: 1. End-stage renal disease with volume overload with dialysis Friday, Friday, Friday. 2. Chronic right heel wound. 3. Mild leukocytosis. PLAN: She is being admitted to the medical unit, placed on telemetry, diabetic diet. We are consulting Nephrology for her dialysis. Will consult Wound Care. Place her on DuoNebs every 4 hours. Will update and confirm home medications. Spoke with general surgeon, who ordered the MRI of her foot yesterday. He felt that wound care was appropriate with Eddie. At this time, did not recommend any antibiotics. States that the patient may be proceeding towards needing an amputation of below the knee, but will follow up in an outpatient setting to discuss that further after she is discharged from this hospitalization. Dictated by DIXIE Bradford for Duke Gallo MD cc: DIXIE Bradford MD Moses Awoniyi, MD
[2019-05-05] MEDS: DUONEB (A & A) INH SCH ×4 (11:30→23:45)
--- NOTE | 2019-05-05 12:44 | NEPHROLOGY CONSULTATION ---
DATE: 05/05/2019 TIME SEEN: 1000 hours. CHIEF COMPLAINT: I was dizzy and could not breath. HISTORY OF PRESENT ILLNESS: Ms. Lara is a 58-year-old female who is well known to our service for hemodialysis management during her hospital stays at [facility]. She is followed at the [facility] and has dialysis on Friday, Friday, and Friday. She had her last treatment this Friday, however she has a known history of not staying her fill treatment time. Her troubles began in the middle of the night when she got up to go to the bathroom. When she began walking she became dizzy and short of breath. She called 911 and was transferred to [facility] [place]. Upon evaluation, her chest x-ray showed mild nonspecific bibasilar infiltrates or areas of atelectasis. She had no evidence of pneumothorax or pleural effusion. She was transferred to [facility] for management with end-stage renal disease. Upon questioning, she denied any associated chest pain, nausea or vomiting, fever or chills, or decreased appetite with her initial complaint of dizziness last night. Currently, she is refusing hemodialysis until she can get a diet order. She is complaining of right heel pain where there is noted to be an open ulceration. She was assessed by Dr. Berrios with her last admission for this and was being followed up in the outpatient setting. On her last admission, her wound culture for this area grew Staphylococcus epidermidis. We were consulted for end-stage renal disease and exasperation of congestive heart failure. PAST MEDICAL HISTORY: End-stage renal disease with hemodialysis on Friday, Friday, and Friday at the [facility]. Diabetes mellitus type 2, nonhealing diabetic foot to the right lower extremity, hypertension, COPD, hyperlipidemia, anemia of chronic disease, and diastolic congestive heart failure. PAST SURGICAL HISTORY: Status post bilateral carpal tunnel syndrome, right foot surgery with right upper extremity AV graft. FAMILY HISTORY: Negative for renal disease, diabetes, and coronary artery disease. Positive for hypertension. SOCIAL HISTORY: She lives at home with family. She is a current smoker. She denies alcohol or illicit drug use. ALLERGIES: Bactrim, morphine, penicillin, and trimethoprim. HOME MEDICATIONS: These have not been confirmed. Albuterol inhaler, amlodipine, apixaban, Durezol, doxycycline, Advair 250/50 Diskus, folic acid, furosemide, hydralazine, NovoLog 70/30, losartan/potassium, metoprolol succinate, Percocet 10, rosuvastatin, Velphoro, Spiriva, Zanaflex. REVIEW OF SYSTEMS: A 14-point review of system complete, all pertinent positives listed above in the HPI. She denies all other symptoms. PHYSICAL EXAMINATION: Vital Signs: Temperature 98.1 degrees, pulse 79, respirations 19, blood pressure 205/79, and O2 saturation 100% on 3 liters nasal cannula. General: Chronically ill- appearing female, sitting up to the side of the bed with increased work of breathing. HEENT: Normocephalic, atraumatic. Conjunctiva is pale. Pupils equal and reactive. Mucous membranes dry. Neck: Supple, positive JVD with hepatojugular reflex in the upright position. Cardiovascular: S1 and S2. Regular rate and rhythm. Soft systolic murmur. Lungs: Coarse rhonchi and crackles posteriorly bilaterally. Abdomen: Soft, obese, nondistended, nontender. Positive bowel sounds. Genitourinary: Not inspected. She continues to have a small urine output with dialysis. Extremities: She has lower extremity edema with an open ulceration to the right heel. Right AV graft with palpable pulse. Neurological: She is alert and oriented to person, place, and time. LABS: WBC 13.89, hemoglobin 9.3, hematocrit 30.2, platelet count 292,000. Sodium 140, potassium 4.2, chloride 97, carbon dioxide 21, anion gap 22, BUN 46, creatinine 13.1. Intake 0, output 1 unmeasured void. IMAGING: Chest x-ray, the impression was mild nonspecific bibasilar infiltrates or areas of atelectasis. Lower extremity MRI, the impression was soft tissue ulceration and cellulitis at the plantar aspect of the heel with a decrease in prominence of the fluid collection suspicious for abscess on the previous study. Very mild increased bone marrow signal on STIR at the lateral aspect of the calcaneus at the plantar aspect suspicious of very early osteomyelitis. ASSESSMENT AND PLAN: 1. Chronic kidney disease stage 5d. We will dialyze her with a 2-potassium bath with a 4 liter ultrafiltration as tolerated for 3.5 hours. 2. Blood pressure. In target. 3. Fluid volume. Expanded. We will manage this with hemodialysis. 4. Anemia. Low, stable. She does not meet transfusion criteria. 5. Electrolytes and acid-base balance. We will manage this with hemodialysis. 6. Nutrition. She has a diabetic diet ordered. 7. Nonhealing diabetic foot ulcer. We will consult Dr. Berrios for continuation of care. Also, we will order repeat wound cultures. 8. Exacerbation of congestive heart failure. We will help manage this with fluid removal on hemodialysis. I would like to thank you for allowing us to follow with this patient. Dictated by DIXIE Abad for Celso Shepherd MD Face to face encounter, data reviewed, discussed with Kiley Hernández on 05/04/18. I agree with the above assessment and plan of care. cc: Celso Shepherd MD MTDD
[2019-05-05] MEDS ORDERED: VENTOLIN HFA INH PRN (16:14)
[2019-05-05] MEDS ORDERED: LOPRESSOR PO ONE (16:44)
[2019-05-05] MEDS ORDERED: NORVASC PO ONE (16:45)
[2019-05-05] MEDS ORDERED: VANCOMYCIN IV PER PHARMACY MISC SCH (17:15)
[2019-05-05] MEDS ORDERED: INSULIN PEN NEEDLES ONE (17:31)
[2019-05-05] MEDS: SOLU-MEDROL IV SCH ×2 (17:35→22:55)
[2019-05-05] MEDS: NOVOLOG MIX 70/30 SUBQ SCH (17:35)
[2019-05-05] MEDS: PERCOCET-10 PO PRN (17:45)
[2019-05-05] MEDS ORDERED: VANCOMYCIN 1 GM/NS 1 GM/250 ML IVPB IV ONE (18:00)
--- NOTE | 2019-05-05 19:01 | HISTORY AND PHYSICAL ---
ADDENDUM: The patient seen and examined by me face to face. All the laboratory, vital signs and images were reviewed. Chest x-ray showed mild nonspecific bibasilar infiltrates which could be related to atelectasis, she is wheezing bilaterally. She has a history of chronic obstructive pulmonary disease and she has been frequently hospitalized because of chronic obstructive pulmonary disease exacerbation. Yesterday, also an MRI of the lower extremity on the right side showed soft tissue ulceration and cellulitis at the plantar aspect of the heel with a decrease in prominence of the fluid collection that was suspicious for abscess on the previous study, very mild increased bony marrow signal at the lateral aspect of the of the calcaneus at the plantar aspect suspicious for very early osteomyelitis. This patient's white blood cell count is elevated. As per the patient, she goes for dialysis Friday, Friday, and Friday. I believe she missed 1 appointment. On the other hand, even though she has chronic obstructive pulmonary disease, she is still smoking. As per the patient she has tried to stop, but has been really hard. I will put this patient on antibiotics, vancomycin. I will talk to the Infectious Disease nurse practitioner to evaluate this patient as an outpatient. She has been placed on wound care. I will give her some steroids for the COPD exacerbation, but like I mentioned before, she is still smoking and as per the patient, she is always wheezing. I will continue with her home medications as well. She received dialysis today. She is still complaining of shortness of breath and pain at the level of the right foot. I agree with the rest of the nurse practitioner's assessment and plan. cc: Duke Gallo MD
[2019-05-05] MEDS: APRESOLINE PO SCH (21:25)
[2019-05-05] MEDS: HUMULIN R SUBQ SCH ×2 (21:26→22:54)
[2019-05-05] MEDS: NON-FORMULARY BULK MED LEFT EYE SCH (21:31)
[2019-05-06] MEDS: DUONEB (A & A) INH SCH ×6 (03:38→23:35)
[2019-05-06] MEDS: SOLU-MEDROL IV SCH ×4 (05:26→23:57)
[2019-05-06] MEDS ORDERED: VANCOMYCIN 1 GM/NS 1 GM/250 ML IVPB IV SCH (06:30)
[2019-05-06] MEDS: HUMULIN R SUBQ SCH ×4 (06:37→23:55)
[2019-05-06] MEDS ORDERED: HEPARIN IV PRN (06:44)
[2019-05-06] MEDS ORDERED: TIGHT: 0.2 ML/HR FOR DIALYSIS MISC PRN (06:44)
[2019-05-06] MEDS ORDERED: NS 2,000 ML MISC PRN (06:44)
[2019-05-06] MEDS: NOVOLOG MIX 70/30 SUBQ SCH ×2 (07:01→16:43)
[2019-05-06 07:08] LABS: BASO# 0.02 X1000 (0.0-0.2); BASO% 0.1 % (0.0-0.8); HEMATOCRIT 35.1 % (37.0-47.0); HEMOGLOBIN 10.5 g/dL (12.0-16.0); IMM GRAN# 0.05 X1000 (0.0-0.04); IMM GRAN% 0.3 % (0.0-0.5); LYMPH# 0.57 X1000 (1.2-3.4); LYMPH% 3.6 % (20.5-51.1); MCH 26.6 PG (27-31); MCHC 29.9 g/dL (33-37); MCV 88.9 FL (81-99); MONO# 0.33 X1000 (0.11-0.59); MONO% 2.1 % (1.7-9.3); MPV 11.1 FL (7.4-10.4); NEUT# 14.65 X1000 (1.4-6.5); NEUT% 93.9 % (42.2-75.2); PLT 279 X1000 (130-400); RBC 3.95 XMIL (4.2-5.4); RDW 15.7 % (11.5-14.5); WBC 15.62 X1000 (4.8-10.8)
[2019-05-06 07:49] LABS: ALB/GLOB RATIO 0.7; ALBUMIN 3.1 g/dL (3.5-5.0); CALCIUM 8.2 mg/dL (8.8-10.2); CREATININE 8.4 mg/dL (0.5-0.9); POTASSIUM 5.1 mmol/L (3.5-5.1); TOTAL BILIRUBIN 0.31 mg/dL (0.20-1.00); TOTAL PROTEIN 7.5 g/dL (6.3-8.3)
--- NOTE | 2019-05-06 09:37 | NEPHROLOGY PROGRESS NOTE ---
DATE: 05/06/2019 TIME SEEN: 0655. SUBJECTIVE: The patient is sitting up to the side of the bed, propped up on her bedside table. She has increased work of breathing and saying that she feels tired and short of breath. She refused her labs earlier but is now willing to have them drawn. OBJECTIVE: Vital Signs: Temperature 98 degrees, pulse 70, respirations 18, blood pressure 168/67, O2 saturation 96% on 3 L nasal cannula. General: Chronically ill- appearing, female, sitting up to the side of the bed with increased work of breathing. HEENT: Normocephalic, atraumatic. Conjunctivae pale. Pupils equal and reactive. Mucous membranes moist. Neck: Supple. Positive JVD in upright position. Cardiovascular: S1, S2. Regular rate and rhythm. Soft systolic murmur. No gallop noted. Lungs: Coarse rhonchi and crackles with audible wheezing. Abdomen: Soft, obese, nondistended, nontender. Positive bowel sounds. Genitourinary: Not inspected. Extremities: Generalized edema to the bilateral lower extremities with right ankle greater than left. She has a dressing to her right foot. Right AV graft with palpable pulse. Neurological: She is alert and oriented to person, place, and time. LABORATORY DATA: WBC 15.62, hemoglobin 10.5, hematocrit 35.1, platelet count 279,000. Sodium 136, potassium 5.1, chloride 97, carbon dioxide 22, anion gap 17, BUN 45, creatinine 8.4. Intake 1150, output 3300. IMPRESSION: 1. Chronic kidney disease stage 5D. The patient had her routine hemodialysis yesterday with a 3300 mL ultrafiltration. She still appears volume overloaded, so we will attempt a 3 to 4 liter hemofiltration today. Will monitor. 2. Blood pressure. Above target. Home dose of Norvasc, Cozaar, and metoprolol restarted. 3. Fluid volume. Expanded. We will help manage this with hemodialysis. 4. Anemia. Stable. 5. Electrolytes and acid-base balance. Stable. We will help manage this with hemodialysis. 6. Nutrition. Adequate. 7. Medication review. Home medications restarted. Thank you for allowing us to follow with this patient. Dictated by DIXIE Abad for Celso Shepherd MD Face to face encounter, data reviewed, discussed with Kiley Hernández on 05/06/19. I agree with the above assessment and plan of care. cc: Celso Shepherd MD [facility]
[2019-05-06] MEDS: APRESOLINE PO SCH ×3 (12:31→21:57)
[2019-05-06] MEDS: COZAAR PO SCH (12:37)
[2019-05-06] MEDS: TOPROL XL PO SCH (12:38)
[2019-05-06] MEDS: PERCOCET-10 PO PRN ×3 (12:38→21:56)
[2019-05-06] MEDS: NORVASC PO SCH (12:39)
[2019-05-06] MEDS: NON-FORMULARY BULK MED LEFT EYE SCH ×2 (12:40→21:56)
--- NOTE | 2019-05-06 14:46 | GENERAL SURGERY CONSULTATION ---
DATE: 05/06/2019 REQUESTING PHYSICIAN: Dr. Krueger. REASON FOR CONSULTATION: Right foot ulcer. HISTORY OF PRESENT ILLNESS: A 58-year-old female, well known to me, who has chronic kidney disease and end-stage renal disease who has a wound to the right foot. I have been seeing her in our office for this and we have been trying to do wound care to it. I did get an MRI of it and essentially the abscess improved, but there is some mild concern for very early osteomyelitis. I was asked to weigh an opinion. PAST MEDICAL HISTORY: Includes congestive heart failure, diastolic dysfunction, hypertension, end- stage renal disease, advanced COPD, hyperlipidemia, diabetes mellitus, medical noncompliance. PAST SURGICAL HISTORY: Includes bilateral carpal tunnel surgery, right foot surgery, right upper extremity AV fistula and graft. FAMILY HISTORY: Reviewed with the patient and noncontributory. SOCIAL HISTORY: Lives alone. Current smoker. ALLERGIES: Sulfa, morphine. HOME MEDICATIONS: Reviewed. REVIEW OF SYSTEMS: A full 14 systems reviewed and negative as specified in HPI. PHYSICAL EXAMINATION: Vital Signs: Patient is currently afebrile. Her vital signs are stable. General: No acute distress. Resting. female looks older than stated age. HEENT: Normocephalic, atraumatic. Pupils equal, round, reactive to light. Mucous membranes moist. Oropharynx benign. Neck: Supple. Trachea midline. Cardiovascular: Regular rate and rhythm. Lungs: Grossly clear. Abdomen: Soft, nontender, nondistended. Extremities: Wound to the right foot at the plantar aspect on the heel essentially unchanged from when I saw her in the office. Neurologic: Grossly intact. Skin: As noted above. LABORATORY: White blood count 15, hematocrit 35, platelet count 279,000. ASSESSMENT AND PLAN: A 58-year-old female with right lower extremity wound. Right lower extremity wound. At this time, I agree with local wound care. We will continue that. The only other option would be amputation but the patient does not want to proceed with that route. We will try local wound care per wound care instructions and continue to monitor. cc: Campbell Berrios MD
--- NOTE | 2019-05-06 15:11 | PROGRESS NOTE ---
DATE: 05/06/2019 SUBJECTIVE: The patient is still complaining of shortness of breath and right heel wound/pain. She has an ulcer in that place and Dr. Berrios offered amputation, but this patient does not want to go that route. She wants to continue with the same management. She is on wound care. She is on dialysis. She is on steroids for her chronic obstructive pulmonary disease exacerbation, but she is still smoking. OBJECTIVE: Vital Signs: Temperature 98 degrees, pulse 70, respiratory rate 18, blood pressure 156/60, oxygen saturation 96 on 3 L of nasal cannula. HEENT: Head normocephalic. No trauma. PERRLA. Neck: Supple. No JVD. No masses. Central trachea. Chest: Decreased breath sounds globally with prolonged expiratory phase. Crepitus at the bases and some scattered crackles, expiratory wheezing. Abdomen: Soft, nontender, nondistended. No hepatosplenomegaly. Extremities: No edema. No clubbing, no cyanosis. Neurological: The patient is awake, alert, and oriented x3. No focal neurological deficit on her right lower extremity, right foot, the plantar aspect of the heel has an ulcer with no secretion at this moment. LABORATORY: WBC 15.6, hemoglobin 10.5, hematocrit 35.1, platelets 279,000 sodium 136, potassium 5.1, chloride 97, bicarbonate 22, BUN 45, creatinine 8.4, glucose 237, calcium 8.2, AST 9, ALT 7, alkaline phosphatase 89, albumin 3.1. ASSESSMENT AND PLAN: 1. Chronic obstructive pulmonary disease exacerbation. Continue with breathing treatment, steroids, oxygen supplementation. She is still smoking. 2. End-stage renal disease. Continue with dialysis as scheduled. 3. Right heel ulcer/diabetic ulcer, Surgery department on board. They offered amputation but she wants to continue with local wound care. 4. Hypertension. Continue home medications. 5. Tobacco abuse. This patient has been highly advised against tobacco use. I will continue with daily cessation education. 6. Diabetes. Her blood sugar is elevated because of the steroids. She has been placed back on her insulin. I will ask for a hemoglobin A1c of 6. cc: Duke Gallo MD
[2019-05-06] MEDS ORDERED: VANCOMYCIN 1 GM/NS 1 GM/250 ML IVPB IV ONE (18:00)
[2019-05-07] MEDS: DUONEB (A & A) INH SCH ×6 (03:30→23:30)
[2019-05-07] MEDS: SOLU-MEDROL IV SCH ×4 (05:19→23:59)
[2019-05-07 05:52] LABS: BASO# 0.02 X1000 (0.0-0.2); BASO% 0.2 % (0.0-0.8); HEMATOCRIT 36.3 % (37.0-47.0); IMM GRAN% 0.8 % (0.0-0.5); LYMPH# 0.44 X1000 (1.2-3.4); LYMPH% 3.3 % (20.5-51.1); MCH 27.3 PG (27-31); MCHC 30.3 g/dL (33-37); MCV 90.1 FL (81-99); MONO# 0.46 X1000 (0.11-0.59); MONO% 3.5 % (1.7-9.3); MPV 11.4 FL (7.4-10.4); NEUT# 12.26 X1000 (1.4-6.5); NEUT% 92.2 % (42.2-75.2); PLT 297 X1000 (130-400); RBC 4.03 XMIL (4.2-5.4); RDW 16.1 % (11.5-14.5); WBC 13.28 X1000 (4.8-10.8)
[2019-05-07 05:54] LABS: ALB/GLOB RATIO 0.8; ALBUMIN 3.4 g/dL (3.5-5.0); CALCIUM 8.3 mg/dL (8.8-10.2); POTASSIUM 4.8 mmol/L (3.5-5.1); TOTAL BILIRUBIN 0.27 mg/dL (0.20-1.00); TOTAL PROTEIN 7.9 g/dL (6.3-8.3)
[2019-05-07 05:56] LABS: CREATININE 6.6 mg/dL (0.5-0.9); HEMOGLOBIN A1C 5.7 % (4.8-6.0)
[2019-05-07] MEDS ORDERED: NS 2,000 ML MISC PRN (06:28)
[2019-05-07] MEDS ORDERED: TIGHT: 0.2 ML/HR FOR DIALYSIS MISC PRN (06:28)
[2019-05-07] MEDS ORDERED: HEPARIN IV PRN (06:28)
[2019-05-07] MEDS: HUMULIN R SUBQ SCH ×4 (06:36→21:03)
[2019-05-07] MEDS: NOVOLOG MIX 70/30 SUBQ SCH ×2 (06:36→17:59)
--- NOTE | 2019-05-07 10:22 | NEPHROLOGY PROGRESS NOTE ---
DATE: 05/07/2019 SUBJECTIVE: Patient is sitting up on the side of the bed. She has removed her oxygen and is saying "my air is bad." OBJECTIVE: Vital Signs: Temperature 97.7 degrees, pulse 63, respiratory rate 18, blood pressure 151/64. Intake 800 mL; output 1.9 L. General: Middle-aged female, who appears older than stated age, sitting up on the side of the bed quite anxious. HEENT: Normocephalic, atraumatic. Oral mucosa is moist. Neck: Supple. She has positive JVD. Cardiovascular: Regular rate with a murmur. Pulmonary: She has rhonchi bilateral. She has some faint wheezing. Abdomen: Soft. Positive bowel sounds. : Not inspected. Minimal void. Extremities: She has continued generalized edema. Integumentary: Skin is warm and dry. LAB DATA: Hemoglobin 11.0. Sodium 136, potassium 4.8, CO2 24, creatinine 6.6. ASSESSMENT AND PLAN: 1. Chronic kidney disease 5 D. We have been trying to remove additional fluid on the patient. However, she signs off early from every treatment. We were able to remove 2 kg yesterday. We will try to dialyze her again today for ultrafiltration with another 3 to 4 kg as tolerated if she agrees. 2. Shortness of breath. I replaced her oxygen. We will order a chest x-ray to verify that her fluid volumes are not such that would warrant an emergent intervention. 3. Electrolytes, acid-base balance: Acceptable. 4. Anemia. 5. Medication review: No changes needed. Dictated by DIXIE Tran for Celso Shepherd MD cc: Celso Shepherd MD [facility]
--- NOTE | 2019-05-07 10:51 | Diag Imaging Result Doc PS360 ---
CHEST-2 VIEWS - 05/07/2019 INDICATION: shortness of breath COMPARISON: 05/05/2019 FINDINGS: There is significant right hemidiaphragm elevation. There is cardiomegaly and significant pulmonary vascular congestion. No infiltrates or edema. No pleural effusion. IMPRESSION: Cardiomegaly and significant pulmonary vascular congestion. Electronically signed by Edgar Olmos 05/07/2019 10:49 AM
[2019-05-07] MEDS ORDERED: INSULIN PEN NEEDLES ONE (11:30)
--- NOTE | 2019-05-07 12:26 | PROGRESS NOTE ---
DATE: 05/07/2019 SUBJECTIVE: Patient reports shortness of breath is getting better but she reports still bad pain in the right heel wound. OBJECTIVE: Vital Signs: Temperature 97.8 degrees, heart rate 69, respiratory rate 16, blood pressure 168/71, O2 saturation 96% on 2 L nasal cannula. General: This is a chronically ill- looking 50-year-old -[place] female lying in bed in no acute distress. Cardiovascular: S1, S2 heard. No murmurs, gallops, or rubs. Regular rate and rhythm. Respiratory: Decreased breath sounds globally with prolonged respiratory phase. Patient is not using any accessory muscles or having work of breathing. Abdomen: Soft, nontender to palpation. Bowel sounds present. No organomegaly. Extremities: No clubbing or cyanosis. On the right foot in the plantar aspect of the heel, an ulcer with no secretion or drainage. Neurological: Patient alert and oriented x3. Moves 4 extremities. LABORATORY DATA: White cell count 13.98, hemoglobin 11.0, hematocrit 36.3, platelets 297,000. BMP reveals glucose 326. ASSESSMENT/PLAN: 1. Chronic obstructive pulmonary disease exacerbation. Clinically, patient is doing better and she is requiring 2 L of oxygen by nasal cannula. Actually, she is at 3 L at home. Of course, the physical examination still disclosed wheezing. At this point, we will continue to monitor this patient closely. 2. End-stage renal disease, on dialysis. Stable. 3. Right heel ulcer, diabetic ulcer. Dr. Berrios has evaluated this patient and offered amputation for this patient but apparently patient is confused and she said that she was told that her wound will heal only with antibiotics. At this point, she said that if she is offered surgery again and she will think about it, although she does look that she kind of confused and does not realize how serious is the wound that she has. In any case, we will continue with the same management. 4. Hypertension. Blood pressure is under control. We will continue with the same management. 5. Tobacco abuse. Patient unfortunately continues to smoke. The patient has been highly advised to stop smoking. 6. Disposition: At this point, we will keep her 1 more day trying to control her pain in the right lower extremity better. If we can do that tomorrow the patient will be discharged. cc: Gabriel Sierra MD
[2019-05-07] MEDS ORDERED: VANCOMYCIN 1 GM/NS 1 GM/250 ML IVPB IV ONE (17:00)
[2019-05-07] MEDS: PERCOCET-10 PO PRN (17:55)
[2019-05-07] MEDS: NORVASC PO SCH (17:57)
[2019-05-07] MEDS: COZAAR PO SCH (17:57)
[2019-05-07] MEDS: NON-FORMULARY BULK MED LEFT EYE SCH ×2 (17:57→21:11)
[2019-05-07] MEDS: APRESOLINE PO SCH ×3 (17:57→21:06)
[2019-05-07] MEDS: TOPROL XL PO SCH (17:57)
[2019-05-08] MEDS: DUONEB (A & A) INH SCH ×2 (03:15→09:02)
[2019-05-08] MEDS: PERCOCET-10 PO PRN (04:51)
[2019-05-08] MEDS: SOLU-MEDROL IV SCH (04:51)
[2019-05-08] MEDS: HUMULIN R SUBQ SCH (06:06)
[2019-05-08] MEDS: NOVOLOG MIX 70/30 SUBQ SCH (06:55)
[2019-05-08 07:38] VITALS: BP 149/58
[2019-05-08] MEDS: COZAAR PO SCH (08:47)
[2019-05-08] MEDS: TOPROL XL PO SCH (08:48)
[2019-05-08] MEDS: NORVASC PO SCH (08:48)
[2019-05-08] MEDS: APRESOLINE PO SCH (08:48)
[2019-05-08] MEDS: NON-FORMULARY BULK MED LEFT EYE SCH (08:48)
[2019-05-08 09:11] LABS: BASO# 0.07 X1000 (0.0-0.2); BASO% 0.4 % (0.0-0.8); HEMATOCRIT 38.7 % (37.0-47.0); HEMOGLOBIN 11.7 g/dL (12.0-16.0); IMM GRAN# 0.31 X1000 (0.0-0.04); IMM GRAN% 1.9 % (0.0-0.5); LYMPH# 0.68 X1000 (1.2-3.4); LYMPH% 4.1 % (20.5-51.1); MCH 27.6 PG (27-31); MCHC 30.2 g/dL (33-37); MCV 91.3 FL (81-99); MONO# 0.82 X1000 (0.11-0.59); MPV 10.4 FL (7.4-10.4); NEUT# 14.62 X1000 (1.4-6.5); NEUT% 88.6 % (42.2-75.2); PLT 298 X1000 (130-400); RBC 4.24 XMIL (4.2-5.4); RDW 16.3 % (11.5-14.5)
[2019-05-08 10:01] LABS: ALB/GLOB RATIO 0.9; ALBUMIN 3.7 g/dL (3.5-5.0); CALCIUM 8.4 mg/dL (8.8-10.2); POTASSIUM 4.2 mmol/L (3.5-5.1); TOTAL BILIRUBIN 0.28 mg/dL (0.20-1.00); TOTAL PROTEIN 7.6 g/dL (6.3-8.3)
--- NOTE | 2019-05-08 10:03 | NEPHROLOGY PROGRESS NOTE ---
DATE: 05/08/2019 SUBJECTIVE: Patient is sitting up to a chair in the doorway of her room. She is agitated and demanding to speak to Dr. Berrios. She denies any uremic complaints. OBJECTIVE: Vital signs: Temperature 97.9 degrees, pulse 69, respirations 18, blood pressure 149/58, O2 saturation 100% on nasal cannula 3 L. General: Chronically ill-appearing female, sitting up in a chair with slight increased work of breathing. HEENT: Normocephalic, atraumatic. Pupils equal and reactive. Mucous membranes moist. Neck: Supple. Positive JVD in upright position. Cardiovascular: S1, S2. Regular rate and rhythm. Soft systolic murmur. No gallops noted. Lungs: Course rhonchi and crackles bilaterally posteriorly. Abdomen: Soft, obese, nondistended, nontender. Positive bowel sounds. Genitourinary: Not inspected. Extremities: Trace edema to the bilateral lower extremities with a dressing in place to the right foot. Right AV graft with palpable pulse. Neurological: Alert and oriented to person, place, and time. LABS: Intake 950, output 2326 per dialysis assist. IMPRESSION: 1. Chronic kidney disease stage 5D. The patient had a 2326 mL ultrafiltration without complications. 2. Blood pressure within target. 3. Fluid volume. Slightly expanded. Remains on hemodialysis for management. 4. Anemia. Low, stable. She does not meet transfusion criteria. Electrolytes and acid-base balance. These are stable on last labs. Managed with hemodialysis. 5. Medication review. No changes. 6. Nutrition. Adequate per documentation. 7. Right heel ulcer, nonhealing. The patient was adamant about speaking with Dr. Berrios before agreeing to amputation. I would like to thank you for allowing us to follow with this patient. Dictated by DIXIE Abad for Celso Shepherd MD cc: Celso Shepherd MD
[2019-05-08 10:10] LABS: CREATININE 6.3 mg/dL (0.5-0.9)
--- NOTE | 2019-05-08 13:57 | DISCHARGE SUMMARY ---
ADMISSION DATE: 05/05/2019 DISCHARGE DATE: 05/08/2019 PRIMARY CARE PHYSICIAN: Dr. Fall. ADMISSION DIAGNOSES: 1. End-stage renal disease with volume overload with dialysis Friday, Friday, Friday. 2. Chronic right heel wound. 3. Mild leukocytosis. DISCHARGE DIAGNOSES: 1. An acute chronic obstructive pulmonary disease exacerbation. 2. End-stage renal disease with dialysis on Friday, Friday, Friday. 3. Chronic right heel diabetic ulcer. 4. Hypertension. 5. Tobacco abuse summary. SUMMARY OF FINDINGS: This is a 58-year-old female who is well known to the hospitalist service, who presented with complaints of shortness of breath. Has known severe COPD, who continues to smoke. She requires home O2, is an end-stage renal disease patient with hemodialysis on Friday, Friday, Friday. She also has a chronic painful right heel diabetic ulcer. Had been seen in the ER about 4 days prior to this admission. They consulted general surgery. He did an MRI that showed a soft tissue ulceration and cellulitis at the plantar aspect of the heel with decrease in prominence of fluid collection that was suspicious for an abscess on the previous study and a very mild increase of bone marrow signal on STIR at the lateral aspect of the calcaneus at the plantar aspect suspicious for very early osteomyelitis. Nephrology was consulted. She was treated for her acute chronic obstructive pulmonary disease exacerbation. It is noted that general surgery offered amputation for this patient but the patient refused, stating that she felt that the wound would heal only with antibiotics. She said that if she is offered surgery again she will think about it, although she does not seem to grasp the understanding of the severity of this wound that is chronic on her right heel. She has received dialysis throughout her hospitalization on the days she normally goes and Nephrology followed and so it is now felt that she can safely be discharged home. DISCHARGE MEDICATIONS: DuoNeb q. 4 hours p.r.n., Ventolin inhaler 2 puff inhalation 4 times daily, amlodipine 10 mg p.o. daily. Dura Li 1 drop to left eye b.i.d., hydralazine 25 mg p.o. t.i.d., NovoLog mix 70/30 15 units subcutaneous b.i.d. a.c., losartan 50 mg p.o. daily, metoprolol 50 mg p.o. daily, and Percocet 10 one to two tablets p.o. q. 6 hours p.r.n. FOLLOWUP: She will need to follow up with her primary care physician in 1 to 2 weeks and call his office for an appointment. Follow up with the general surgeon, Dr. Berrios, in 1 to 2 weeks. Call their office for an appointment and continue her dialysis as scheduled. This is a 35 minute discharge. Dictated by DIXIE Bradford for Gabriel Sierra MD Addendum: Patient seen and examined by myself. Agree with DIXIE note. It reflects my assessment and plan. Patient is being discharged in stable condition. Will be seen by Dr. Berrios in a week. cc: DIXIE Bradford MD Moses Awoniyi, MD Matthew L. Figh, MD Reginald D. Gladish, MD MTDD
== END 2019-05-08 11:22 | disposition home or self-care (01) | DRG 190 ==
LOC: P.ED 01:45 → 1N 01:45 → SUATTDRO 06:11
PROVIDERS: ATTEND Internal Medicine

== ENCOUNTER 2019-05-12 12:14 | Inpatient (IN) ==
[2019-05-12] MEDS ORDERED: HEPARIN IV PRN (12:44)
[2019-05-12] MEDS ORDERED: NS 2,000 ML MISC PRN (12:44)
[2019-05-12 14:04] LABS: BASO# 0.02 X1000 (0.0-0.2); BASO% 0.1 % (0.0-0.8); EOS# 0.05 X1000 (0.0-0.7); EOS% 0.3 % (0.0-10.0); HEMATOCRIT 34.1 % (37.0-47.0); HEMOGLOBIN 10.5 g/dL (12.0-16.0); IMM GRAN# 0.09 X1000 (0.0-0.04); IMM GRAN% 0.5 % (0.0-0.5); LYMPH# 0.72 X1000 (1.2-3.4); LYMPH% 3.9 % (20.5-51.1); MCH 27.1 PG (27-31); MCHC 30.8 g/dL (33-37); MCV 87.9 FL (81-99); MONO% 3.2 % (1.7-9.3); MPV 10.8 FL (7.4-10.4); NEUT# 17.02 X1000 (1.4-6.5); PLT 280 X1000 (130-400); RBC 3.88 XMIL (4.2-5.4); RDW 16.1 % (11.5-14.5)
[2019-05-12 14:19] LABS: ALBUMIN 2.8 g/dL (3.5-5.0); CALCIUM 7.4 mg/dL (8.8-10.2); CREATININE 9.2 mg/dL (0.5-0.9); PHOSPHORUS 5.8 mg/dL (2.7-4.5); POTASSIUM 4.7 mmol/L (3.5-5.1)
--- NOTE | 2019-05-12 17:00 | PROVIDER DOCUMENTATION ---
HPI-General Adult - General Chief Complaint: Extremity Pain Stated Complaint: RIGHT FOOT PAIN, NEEDS DIALYSIS Time Seen by Provider: 05/12/19 12:51 Source: patient Allergies/Adverse Reactions: Patient Allergies Allergy/AdvReac Type Severity Reaction Status Date / Time sulfamethoxazole Allergy Severe ANAPHYLAXIS Verified 05/12/19 19:24 [From ] trimethoprim [From ] Allergy Severe ANAPHYLAXIS Verified 05/12/19 19:24 morphine Allergy Intermediate HIVES Verified 05/12/19 19:24 Penicillins Allergy Mild HIVES Verified 05/12/19 19:24 Home Medications: Home Medication List Medication Instructions Recorded Confirmed Last Taken Type Amlodipine Besylate 10 mg PO DAILY 12/31/18 05/12/19 05/05/19 09:00 History Difluprednate [Durezol] 1 drp LEFT EYE BID 12/31/18 05/12/19 05/04/19 21:00 History Losartan Potassium 50 mg PO DAILY 12/31/18 05/12/19 05/04/19 09:00 History Metoprolol Succinate 50 mg PO DAILY 12/31/18 05/12/19 Unknown History Hydralazine [Apresoline] 25 mg PO 0800,1400,2100 #90 tab 01/04/19 05/12/19 Unknown Rx Insulin Novolog 70/30 [Novolog Mix 15 unit SUBQ BID AC #0 insuln.pen 01/04/19 05/12/19 05/04/19 18:00 Rx 70/30] Albuterol 2.5MG/Ipratrop 0.5MG 3 ml INH Q4H PRN #30 neb 02/19/19 05/12/19 05/04/19 19:00 Rx [Duoneb (A & A)] Albuterol Sulfate Inhaler 2 puff INH AP5ODEE PRN #1 inhaler 02/19/19 05/12/19 05/04/19 14:00 Rx [Ventolin Hfa] Oxycodone/APAP 10 mg/325 mg 1 - 2 tab PO Q6H PRN PRN #40 tab 05/08/19 05/12/19 Unknown Rx [Percocet-10] - History of Present Illness -Gen Adult Nature of Presenting Problems: c/o pain in right foot, dialysis pt, supposed to have dialysis on M, W, F. states that she had dialysis on Friday because she was admitted to hospital, but has not had dialysis on Friday and has not had dialysis today. Location of Pain/Injury: reports: lower extremity Pain Radiation: reports: other (right foot, diabetic foot ulcer on the plantar aspect of the right foot) Quality of Pain: reports: sharp, throbbing Severity: reports: moderate Onset/Duration: reports: gradual, other (chronic) Modifying Factors: improves with: movement Similar Symptoms Previously?: Yes Review of Systems - Adult - REVIEW OF SYSTEMS - ADULT Constitutional: reports: quique. denies: fever Eyes: reports: no symptoms reported Ears, Nose, Mouth & Throat: reports: no symptoms reported Cardiovascular: reports: no symptoms reported Respiratory: reports: no symptoms reported Gastrointestinal: reports: no symptoms reported Genitourinary: reports: no symptoms reported Musculoskeletal: reports: see HPI Integumentary: reports: no symptoms reported Neurological: reports: no symptoms reported Psychiatric: reports: no symptoms reported Endocrine: reports: no symptoms reported Hematologic/Lymphatic: reports: no symptoms reported Allergic/Immunologic: reports: no symptoms reported Past History - Adult - PAST MEDICAL HISTORY-ADULT Review of Records: reports: Nursing Assessment Review Major Childhood Illnesses: reports: denies history Cardiovascular: reports: CHF, HTN, hyperlipidemia Respiratory: reports: asthma, COPD Gastrointestinal: reports: GERD Obstetrical/Gynecological: reports: other (post menopausal) Genitourinary: reports: ESRD, kidney disease Musculoskeletal: reports: other (carpal tunnel syndrome bilaterally) Neurological: reports: denies history Psychiatric: reports: anxiety, schizophrenia Endocrine/Immune: reports: Diabetes Other Conditions: reports: other (CHronic pain) - PRIOR SURGERIES/PROCEDURES Surgical/Procedure History: reports: BTL, orthopedic (extremity) (carpal tunnel bilateral/ R foot), joint replacement (knee), back/neck (back), other (bilateral carpal tunnel release/abdominal surgery) - PRIOR HOSPITALIZATIONS Prior Hospitalizations: reports: for similar symptoms - IMMUNIZATION STATUS Childhood Immunizations: See Nurse Assessment Flu Vaccine: See Nurse Assessment - FAMILY HISTORY Family History: reviewed, not pertinent Physical Exam-General - PHYSICAL EXAM-ADULT Initial Vital Signs Reviewed: Yes - CONSTITUTIONAL General Appearance: alert - EYES Eyes: PERRL/EOMI, pink conjunctivae - HEAD, EARS, NOSE, MOUTH & THROAT HENMT: normocephalic/atraumatic - NECK Neck: non-tender. negative: lymphadenopathy - RESPIRATORY Respiratory: chest non-tender, no pleuratic chest pain, no respiratory distress - CARDIOVASCULAR Cardiovascular: normal peripheral pulses, regular rate, rhythm - GASTROINTESTINAL (ABDOMEN) Abdominal Exam: non tender, soft - LYMPHATIC Lymphatic: no adenopathy - MUSCULOSKELETAL Back Exam: no CVA tenderness, other (diabetic foot ulcer on the right foot) - SKIN Integumentary: normal color, normal turgor - NEUROLOGIC Neurologic: grossly normal, no motor/sensory deficits - PSYCHIATRIC Psych/Mental Status: normal mood/affect Progress - PLAN OF CARE/RESULTS Progress/Plan/Lab Results: Vital Signs - 8 hr 05/12/19 12:29 Temperature 98.2 F Pulse Rate 78 Respiratory Rate 18 Blood Pressure 136/63 O2 Sat by Pulse Oximetry 97 Laboratory Results - last 24 hr 05/12/19 05/12/19 13:39 13:39 WBC 18.50 H RBC 3.88 L Hgb 10.5 L Hct 34.1 L MCV 87.9 MCH 27.1 MCHC 30.8 L RDW Std Deviation 16.1 H Plt Count 280 MPV 10.8 H Immature Gran % (Auto) 0.5 Neut % (Auto) 92.0 H Lymph % (Auto) 3.9 L [place] % (Auto) 3.2 Eos % (Auto) 0.3 Baso % (Auto) 0.1 Immature Gran # (Auto) 0.09 H Neut # (Auto) 17.02 H Lymph # (Auto) 0.72 L [place] # (Auto) 0.60 H Eos # (Auto) 0.05 Baso # (Auto) 0.02 Sodium 138 Potassium 4.7 Chloride 102 Carbon Dioxide 21 L Anion Gap 15 BUN 87 H Creatinine 9.2 H Estimated GFR/1.73 m2 5 BUN/Creatinine Ratio 9 Glucose 295 H Calculated Osmolality 313 Calcium 7.4 L Phosphorus 5.8 H Albumin 2.8 L Orders Category Date Time Status Dialysate Bath: DIRECTED Care 05/12/19 12:44 Completed Dialysate Flow: DIRECTED Care 05/12/19 12:44 Completed Dialysis Blood Flow: DIRECTED Care 05/12/19 12:44 Completed Dialysis Machine Settings: DIRECTED Care 05/12/19 12:44 Completed Dialysis Treatment Time: DIRECTED Care 05/12/19 12:44 Completed Dialysis Treatment Weight ROUTINE Care 05/12/19 12:44 Completed Dialysis UF Removal Amount: DIRECTED Care 05/12/19 12:44 Completed Dialyzer Type: DIRECTED Care 05/12/19 12:44 Completed NRSG - Obtain Dialysis Consent NOW Care 05/12/19 12:44 Completed BLOOD CULTURE [BLDCUL] Stat Lab 05/12/19 13:40 Results CBC WITH DIFF [HEME] Stat Lab 05/12/19 13:39 Completed RENAL PROFILE [CHEM] Stat Lab 05/12/19 13:39 Completed 0.9% Sodium Chloride Inj [Ns] 2,000 ml Med 05/12/19 12:44 Discontinued MISC As Directed mls/hr Heparin Med 05/12/19 12:44 Discontinued 1,000 unit IV BOLUS PRN Result Diagrams: 05/13/19 04:59 05/13/19 04:59 - CONSULTS/PCP/HOSPITALIST Notification #1 *Consult/PCP/Hospitalist*: RUBÉN Miguel Time Discussed: 17:40 Consult Disposition: Will see in ED, Admit Departure - Departure Date of Disposition Decision: 05/12/19 Time of Disposition Decision: 17:36 DIAGNOSIS: Osteomyelitis Qualifiers: Osteomyelitis type: unspecified type Osteomyelitis location: unspecified site Qualified Code(s): M86.9 - Osteomyelitis, unspecified Diabetic foot ulcer Qualifiers: Diabetic foot ulcer location: heel Diabetes mellitus type: other specified (including DWAIN) Laterality: right Non-pressure ulcer stage: with other severity Qualified Code(s): E13.621 - Other specified diabetes mellitus with foot ulcer Disposition: ADMITTED INPATIENT 09 Certified Medical Emergency: Emergent Condition: Good - Critical Care Note This patient required my direct & personal management of CC.: No Attestation - Physician/ JONAS Attestation Patient care was provided by Advanced Practice Provider:: No The physician spent face to face time with patient:: Yes Advanced Practice Provider documentation review:: Supervising physician onsite and consulted in the evaluation and care of this patient. The physician did have a face to face encounter with the patient.
[2019-05-12] MEDS ORDERED: VANCOMYCIN 1 GM/NS 1 GM/250 ML IVPB IV ONE (17:05)
[2019-05-12] MEDS ORDERED: CLINDAMYCIN 900 MG/NS 900 MG/50 ML IVPB IV ONE (17:05)
[2019-05-12] MEDS ORDERED: CLINDAMYCIN 900 MG/D5W 900 MG/50 ML IVPB IV ONE (17:15)
--- NOTE | 2019-05-12 18:55 | Diag Imaging Result Doc PS360 ---
EXAM: FOOT COMPLETE RIGHT INDICATION: right foot pain TECHNIQUE: 3 views COMPARISON: 04/10/2019 FINDINGS: The bones are diffusely osteopenic. There is degenerative arthropathy at the first MTP joint. There is no discrete fracture, dislocation, or significant intrinsic osseous lesion. No discrete bony erosion is identified to indicate osteomyelitis. There is still soft tissue edema and potential ulceration at the plantar aspect of the heel. There is extensive atherosclerotic disease. IMPRESSION: Soft tissue edema and ulceration at the plantar aspect of the heel. No discrete bony erosion identified to indicate osteomyelitis by plain radiograph. Electronically signed by David Orantes 05/12/2019 6:53 PM
[2019-05-12] MEDS ORDERED: ZOFRAN IV PRN (19:00)
[2019-05-12] MEDS ORDERED: VANCOMYCIN 500 MG/NS 500 MG/100 ML IVPB IV PRN (19:15)
--- NOTE | 2019-05-12 20:07 | HISTORY AND PHYSICAL ---
CHIEF COMPLAINT: Right heel pain and drainage. HISTORY OF PRESENT ILLNESS: This is a 58-year-old female with a history of a chronic diabetic foot ulcer to her right foot with a recent MRI that it was suspicious for osteomyelitis, end-stage renal disease on Friday, Friday, Friday hemodialysis as well as noncompliance. She presented to the emergency room today stating that her foot hurt and she needed dialysis. She states that she last had dialysis Friday. She missed Friday but did show up today to the ER. She was found to have a white count of 18,000. Four days ago, her white count was 16,000. Five days ago, it was 13,000. She did receive her dialysis. She stated that she has been followed by Dr. Berrios, General Surgery actually and presented to the ER today for her dialysis. Ms. Lara was hospitalized from May 04 to May 07 with a COPD exacerbation as well as leukocytosis. She was evaluated by Dr. Berrios, General Surgery, who has been following the patient as an outpatient in his office for this chronic ulcer and a chronic abscess. MRI on May 03 showed a decrease and prominence of the fluid collection that was suspicious for an abscess to this right heel. Dr. Berrios recommended that local wound care be continued as the other option would be amputation, but the patient was refusing amputation. The patient stated that she was given instructions for her wound care, although she has not followed it, "I have not followed it like I was supposed to." Her foot was x-rayed in the emergency room with impression of soft tissue edema and ulceration at the plantar aspect of the heel. She was given a gram of vancomycin as well as clindamycin, and she is being admitted for further evaluation and treatment. PAST MEDICAL HISTORY: 1. Chronic obstructive pulmonary disease. 2. Diabetes mellitus. 3. Congestive heart failure. 4. Diastolic dysfunction. 5. Hypertension. 6. End-stage renal disease with Friday, Friday, Friday hemodialysis. 7. Home O2. 8. Chronic right heel diabetic foot ulcer. PAST SURGICAL HISTORY: Bilateral carpal tunnel surgery, right upper arm AV graft. FAMILY HISTORY: Positive for hypertension and diabetes. SOCIAL HISTORY: She lives alone. She has a 40 pack-year history of smoking. She denies alcohol or illicit drug use. ALLERGIES: Sulfa, morphine, and penicillin. HOME MEDICATIONS: A list will be obtained by the nursing staff, and once verified we will review and restart as appropriate. REVIEW OF SYSTEMS: Discussed with patient with pertinent positives stated in the HPI. She denied any syncope, dizziness, chest pain, palpitations, any fevers, chills, productive cough, any nausea, vomiting, diarrhea, constipation, black or bloody vomitus or stools, any hematuria, dysuria, frequency, urgency. PHYSICAL EXAMINATION: GENERAL: This is a 58-year-old female who is sitting up on the stretcher, eating supper, in no distress. EYES: Pupils equal, round, react to light. EOMs are intact. Sclerae are anicteric. HEENT: Head is normocephalic, atraumatic. Mucous membranes are moist. NECK: Supple with trachea midline. CARDIOVASCULAR: Regular rate and rhythm. S1 and S2 appreciated. She has bilateral lower extremity edema pretibial. AV graft right upper extremity has a positive bruit and thrill. PULMONARY: Breath sounds are clear with no increased work of breathing noted. She does have prolonged expiration. Chest rises and falls symmetric with respiration. GASTROINTESTINAL: Abdomen is soft, nontender, nondistended. Bowel sounds in all 4 quadrants. NEUROLOGIC: She is alert and oriented x3. SKIN: Warm and dry. There are diabetic foot ulcers noted on the right. LABORATORY DATA: WBC is 18.5 with hemoglobin 10.5, hematocrit 34.1, and platelets 280,000, sodium 138, potassium 4.7, BUN 87, creatinine 9.2 with a glucose of 295. Phosphorus is 5.8. Blood cultures are pending. ASSESSMENT AND PLAN: 1. Chronic diabetic foot ulcer, right lower extremity. We will consult General Surgery as well as Wound Care. Continue vancomycin 500 mg every 48 hours after dialysis. 2. Osteomyelitis. Treatment as stated above. 3. End-stage renal disease on Friday, Friday, Friday hemodialysis. We will consult Dr. Shepherd for medical management. 4. Diabetes mellitus. Pattern blood glucose with sliding scale insulin. 5. Hypertension. We will continue home medications as appropriate. Plan was discussed with Dr. Mcclellan. Further treatments are pending hospital course. Dictated by DIXIE Le for Davi Mcclellan MD cc: DIXIE Le MD
[2019-05-12] MEDS: HUMALOG SUBQ SCH (21:50)
[2019-05-12] MEDS ORDERED: ZYVOX PO SCH (23:00)
[2019-05-13] MEDS: CLEOCIN PO SCH ×4 (00:27→22:28)
[2019-05-13] MEDS: PERCOCET-10 PO PRN ×3 (00:54→22:28)
[2019-05-13 05:15] LABS: HEMATOCRIT 35.1 % (37.0-47.0); HEMOGLOBIN 10.8 g/dL (12.0-16.0); MCH 27.4 PG (27-31); MCHC 30.8 g/dL (33-37); MCV 89.1 FL (81-99); MPV 10.8 FL (7.4-10.4); RBC 3.94 XMIL (4.2-5.4); RDW 16.1 % (11.5-14.5); WBC 13.93 X1000 (4.8-10.8)
[2019-05-13 05:44] LABS: ALBUMIN 2.8 g/dL (3.5-5.0); CREATININE 8.3 mg/dL (0.5-0.9); PHOSPHORUS 5.8 mg/dL (2.7-4.5); POTASSIUM 4.6 mmol/L (3.5-5.1)
[2019-05-13] MEDS ORDERED: DILAUDID IV PRN (06:04)
[2019-05-13] MEDS ORDERED: VANCOMYCIN 1 GM/NS 1 GM/250 ML IVPB IV SCH (06:30)
--- NOTE | 2019-05-13 06:31 | GENERAL SURGERY CONSULTATION ---
DATE: 05/13/2019 REQUESTING PHYSICIAN: Hospitalist. REASON FOR CONSULTATION: Right foot wound. HISTORY OF PRESENT ILLNESS: A 58-year-old female, with multiple medical comorbidities, who is well known to me. She is poorly compliant with medical recommendations. She has not been to dialysis on several occasions. She did not show up to her most recent office visit for me. She stated that she has not done her wound care very well. She has a continued wound to her right foot. We did get an MRI last week that showed very possible early osteomyelitis, but I had discussed with her an amputation on her previous hospitalization and she did not want an amputation. I am not sure she has been doing wound care as described as she actually admits she has been doing it, so her wound has not improved. She is admitted for pain. I was asked to weigh an opinion. PAST MEDICAL HISTORY: Her past medical history includes COPD, diabetes mellitus, congestive heart failure, diastolic dysfunction, hypertension, end-stage renal disease, home O2. PAST SURGICAL HISTORY: The past surgical history includes bilateral carpal tunnel surgery, and multiple dialysis access surgeries. FAMILY HISTORY: Positive for hypertension and diabetes. SOCIAL HISTORY: Lives alone. Does report smoking. ALLERGIES: Sulfa. Morphine. HOME MEDICATIONS: Reviewed. MAR reviewed. REVIEW OF SYSTEMS: A full 14 systems were reviewed and negative except as specified in the HPI. PHYSICAL EXAMINATION: Vital Signs: The patient is currently afebrile. Her vital signs stable. General: No acute distress, but ill-appearing female looks stated age. HEENT: Normocephalic, atraumatic. Pupils equal, round, and reactive to light. Mucous membranes moist. Oropharynx benign. Neck: Supple. Trachea midline. Cardiovascular: Regular rate and rhythm. Lungs: Grossly clear. Abdomen: Soft, nondistended. Extremities: Chronic wound noted to the right heel, with some boggy tissue. No active drainage at this time. Moves all extremities. Vascular: All extremities perfused. Neurologic: Grossly intact. Skin: Wound as noted above. LABORATORY: White blood cell count 13, hematocrit 35, platelet count 235,000. Remainder of labs reviewed. ASSESSMENT AND PLAN: A 58-year-old female with chronic right lower extremity wound. Chronic right lower extremity wound: At this time, discussed with patient her options. I did have the nurse present in the room during this discussion. Discussed with her that she needed to do follow-up and local wound care, but at this time, we will plan on debridement in the operating room. Discussed with her that may involve a [id number] amputation. She had previously been hesitant for this, but she is more willing. The main issue I want to have is that if we do a debridement she is going to need to be compliant with her local wound care or the wound is not going to improve. We may need even to consider a wound VAC, but I am concerned that a wound VAC may be difficult and we may need to even consider sending her to a rehab place so that we would know that she is getting wound care. She is going to be a logistic issue with. She is aware of the risks, benefits, and alternatives of the procedure today and is aware that she may involve ultimately having a [id number] amputation. We will put her on the schedule today and assess her in the operating room. cc: Campbell Berrios MD
[2019-05-13] MEDS: HUMALOG SUBQ SCH ×3 (06:51→22:22)
--- NOTE | 2019-05-13 11:45 | NEPHROLOGY CONSULTATION ---
DATE: 05/13/2019 CHIEF COMPLAINT: "My right foot hurts." HISTORY OF PRESENT ILLNESS: Ms. Lara is a 58-year-old female who is well known to our service for inpatient dialysis treatment during her frequent hospital admissions. She goes to the [facility] on Friday, Friday, and Friday. She has a past medical history of noncompliance, end-stage renal disease with hemodialysis, osteomyelitis of the right foot, congestive heart failure, COPD, and requires home O2 at 3 L. She missed her dialysis this Friday and says her last treatment was on Friday. She was just recently here on 05/04 for an exacerbation of COPD. At that time, she was evaluated by Dr. Berrios for her right foot. She also notes that she has been following with him in the outpatient setting. On her last admission, she refused amputation and wanted to try IV antibiotics. She was treated with vancomycin and clindamycin. She presents to the emergency department yesterday with increased right heel pain, and foul smelling drainage. Her white count is now 18,000. We have been consulted for her osteomyelitis medical management and ESRD. PAST MEDICAL HISTORY: End-stage renal disease with dialysis on Friday, Friday, and Friday. COPD, diabetes mellitus, congestive heart failure, diastolic dysfunction, hypertension, home oxygen use, and chronic right heel diabetic foot ulcer. PAST SURGICAL HISTORY: Bilateral carpal tunnel surgery. Right upper arm AV graft. SOCIAL HISTORY: She lives at home with a significant other. She has a 40 pack- year history of tobacco smoke. She denies alcohol or illicit drug use. FAMILY HISTORY: Positive for hypertension and diabetes. ALLERGIES: Sulfa, morphine, and penicillin. HOME MEDICATIONS: 1. Ventolin inhaler. 2. Amlodipine. 3. Difluprednate. 4. Hydralazine. 5. NovoLog 70/30. 6. Losartan/potassium. 7. Metoprolol succinate. Percocet 10. REVIEW OF SYSTEMS: Fourteen point review of systems completed. All pertinent positives listed above in HPI. PHYSICAL EXAMINATION: Vital Signs: Temperature 98.2 degrees, pulse 64, respirations 16, blood pressure 93/45, and O2 saturation 96% on 3 L nasal cannula. General: Chronically ill-appearing female lying in bed in no acute distress. Skin: Warm and dry. HEENT: Normocephalic, atraumatic. Mucous membranes moist. Pupils equal and reactive. Neck: Supple. Positive JVD with hepatojugular reflex. Cardiovascular: S1, S2. Regular rate and rhythm. Soft systolic murmur. No gallops noted. Lungs: Scattered rhonchi to posterior lobes bilaterally. Abdomen: Soft. Obese. Nontender. Nondistended. Positive bowel sounds noted. : Not inspected. Extremities: Trace edema to the bilateral lower extremities. She has an open ulceration on the bottom of her right heel. She also has a right AV graft with palpable pulse. Neurological: She is alert and oriented to person, place, and time. LABORATORY: WBC 13.93, hemoglobin 10.8, hematocrit 35.1, and platelet count 235,000. Chemistries: Sodium 145, potassium 4.6, chloride 103, carbon dioxide 25, BUN 58, and creatinine 8.3. IMAGING: Foot x-ray. IMPRESSION: Soft tissue edema and ulceration at the plantar aspect of the heel. No discrete bony erosion identified. ASSESSMENT AND PLAN: 1. Chronic kidney disease stage 5D. Patient is a hemodialysis patient with Friday, Friday, and Friday. We will keep her on this schedule. She had her routine dialysis in the hospital yesterday without complications. 2. Suspected osteomyelitis of the right foot. The patient has agreed to go ahead with amputation. Dr. Berrios has spoken with her this morning. We will start vancomycin 1 g after dialysis. 3. Blood pressure. This is stable. 4. Fluid volume, slightly expanded. Managed with hemodialysis. 5. Anemia. Low but stable. Does not meet transfusion criteria. 6. Electrolytes and acid-base balance. These are acceptable. 7. Nutrition. Patient is NPO. Pending amputation. 8. Physical deconditioning. Defer to Surgery. MEDICATION REVIEW: Hydromorphone ordered by surgery. Thank you for allowing us to follow with this patient. Dictated by DIXIE Abad for Celso Shepherd MD Face to face encounter, data reviewed, discussed with Kiley Hernández on 05/13/19. I agree with the above assessment and plan of care. cc: Celso Shepherd MD [facility]
[2019-05-13] MEDS ORDERED: DIPRIVAN 1% ONE (12:46)
[2019-05-13] MEDS ORDERED: FENTANYL ONE (13:21)
[2019-05-13] MEDS ORDERED: XYLOCAINE-MPF 2% ONE (13:21)
[2019-05-13] MEDS ORDERED: VENTOLIN HFA INH PRN (14:43)
[2019-05-13] MEDS ORDERED: PERCOCET-10 PO PRN (14:43)
[2019-05-13] MEDS: DILAUDID ONE ×3 (14:57→15:10)
--- NOTE | 2019-05-13 15:32 | OPERATIVE NOTE ---
PROCEDURE DATE: 05/13/2019 PREOPERATIVE DIAGNOSIS: Right foot wound. POSTOPERATIVE DIAGNOSIS: Right foot wound. PROCEDURE PERFORMED: Incision and debridement of skin, subcutaneous tissue, muscle, and fascia measuring 75 square cm. SURGEON: Campbell Berrios MD. CONSUMER LOAN PROCESSOR: None. ANESTHESIA: General endotracheal. FINDINGS: Wound measures 15 x 5 x 2. The area is close to the bone. COMPLICATIONS: None at the time of this dictation. ESTIMATED BLOOD LOSS: 10 mL. SPECIMENS REMOVED: None. BRIEF HISTORY: A 58-year-old female with multiple medical comorbidities. She had a chronic wound with which she was poorly compliant to her wound care and she needed debridement. The risks, benefits, and alternatives were discussed with the patient. All questions were answered. DESCRIPTION OF PROCEDURE: After informed consent was obtained, the patient was brought to the operative theatre, transferred to the operating table, and placed in the supine position. General endotracheal anesthesia was then performed without complication. A formal time-out was then performed, confirming patient, date, and procedure. All were in agreement. At that time, attention was given the right foot. It was prepped and draped. We made an incision over the wound. I sharply debrided and excised skin, subcutaneous tissue, muscle, and fascia all the way down near the calcaneus and the remaining bones of the foot but it did not seem to touch the foot. I did not see any signs of obvious osteomyelitis but there was a significant amount of and dying skin. We debrided it sharply and excised it to the point where there was some bleeding tissue. Given the fact that it was close to the bone, I would like to at least try to see if I can salvage it before we have to do an amputation. At this time, we elected to debride as much we can and do wet-to-dry Vashe dressing, and reassess in the operating room on Friday. The patient tolerated the procedure well and was transferred back to the recovery room. cc: Campbell Berrios MD
--- NOTE | 2019-05-13 15:38 | PROGRESS NOTE ---
DATE: 05/13/2019 SUBJECTIVE: Patient has no major complaints. OBJECTIVE: Blood pressure is 93/45, heart rate of 64, respiratory rate of 16, temperature 98.2 degrees. Saturation 96% on 3 LCardiovascular: Regular rate and rhythm. Pulmonary: Bilateral breath sounds clear to auscultation. GI: Soft, nontender, nondistended. Bowel sounds are positive. LABORATORY DATA: White count 13, hemoglobin and hematocrit 10 and 35, platelets 235,000. Creatinine 8.3, sugar was 59 this morning. PROBLEM LIST: 1. Diabetic foot ulcer, looks possibly ischemic. She is on vancomycin, clindamycin and Zyvox. She is going to get vancomycin with dialysis but I do not think she has gotten a dose yet. In any case, patient has stabilized and seems to be doing okay. Will continue to see how things go. 2. End-stage renal. She is to continue dialysis per her regular things. 3. Diabetes. We will continue to follow closely. cc: Davi Mcclellan MD
--- NOTE | 2019-05-13 17:41 | Diag Imaging Result Doc PS360 ---
EXAM: CHEST-PORTABLE 05/13/2019 HISTORY: rehab placement TECHNIQUE: AP portable at 1727 COMMENT: There is cardiomegaly. There is minimal platelike opacity in the lingula. There is also platelike opacity over the right base which is slightly worse than on the previous examination of 05/07/2019. The inspiration is less optimal. IMPRESSION: Bibasilar atelectasis. Cardiomegaly. Electronically signed by Saúl Castillo 05/13/2019 5:39 PM
[2019-05-13] MEDS: NOVOLOG MIX 70/30 SUBQ SCH (18:42)
[2019-05-13] MEDS: APRESOLINE PO SCH (22:22)
[2019-05-14] MEDS: CLEOCIN PO SCH ×4 (03:24→22:17)
[2019-05-14 05:22] LABS: BASO# 0.01 X1000 (0.0-0.2); BASO% 0.1 % (0.0-0.8); EOS# 0.09 X1000 (0.0-0.7); EOS% 0.6 % (0.0-10.0); HEMOGLOBIN 10.5 g/dL (12.0-16.0); IMM GRAN# 0.03 X1000 (0.0-0.04); IMM GRAN% 0.2 % (0.0-0.5); LYMPH# 1.13 X1000 (1.2-3.4); LYMPH% 7.6 % (20.5-51.1); MCH 26.4 PG (27-31); MCV 87.9 FL (81-99); MONO# 1.32 X1000 (0.11-0.59); MONO% 8.9 % (1.7-9.3); NEUT# 12.22 X1000 (1.4-6.5); NEUT% 82.6 % (42.2-75.2); PLT 258 X1000 (130-400); RBC 3.98 XMIL (4.2-5.4); RDW 16.3 % (11.5-14.5)
--- NOTE | 2019-05-14 06:05 | GENERAL SURGERY PROGRESS NOTE ---
DATE: 05/14/2019 SUBJECTIVE: The patient seems to be doing okay. OBJECTIVE: Vital Signs: The patient is currently afebrile. Her vital signs are stable. General: No acute distress. Cardiovascular: Regular rate and rhythm. Lungs: Grossly clear. Abdomen: Soft, nontender, nondistended. Extremities: Wound to right foot with dressing intact. No significant change. ASSESSMENT AND PLAN: A 58-year-old female with wound to the right lower extremity. Right lower extremity wound: At this time, the plan is for her to go back to the operating room on Friday. The wound did track significantly and may need to consider potential for an amputation, but I was trying to avoid it in this operation. We will continue local wound care and plan on operation on Friday morning. cc: Campbell Berrios MD
[2019-05-14 06:11] LABS: ALBUMIN 2.7 g/dL (3.5-5.0); CALCIUM 7.3 mg/dL (8.8-10.2); PHOSPHORUS 7.5 mg/dL (2.7-4.5)
[2019-05-14 06:17] LABS: POTASSIUM 6.2 mmol/L (3.5-5.1)
[2019-05-14] MEDS: HUMALOG SUBQ SCH ×4 (07:07→22:15)
[2019-05-14] MEDS: NOVOLOG MIX 70/30 SUBQ SCH (08:33)
[2019-05-14] MEDS: NORVASC PO SCH (08:33)
[2019-05-14] MEDS: PERCOCET-10 PO PRN ×3 (08:33→22:19)
[2019-05-14] MEDS: COZAAR PO SCH (08:33)
[2019-05-14] MEDS: TOPROL XL PO SCH (08:33)
[2019-05-14] MEDS: APRESOLINE PO SCH ×3 (08:33→22:15)
--- NOTE | 2019-05-14 08:39 | Extremity Venous Study ---
PROCEDURE NAME: Venous U/S Right Leg - 05/12/2019 REFERRING PHYSICIAN: Dr. Jacobsen. READING PHYSICIAN: Dr. Abhijeet Trinidad. DIRECTOR OF STRATEGIC SALES: Chau. INDICATION: Leg pain and nonhealing wound. FINDINGS: The deep and superficial veins of the right lower extremity were imaged throughout their course. They are compressible, patent and without thrombus. INTERPRETATION: No deep venous thrombosis or superficial venous thrombosis of the right lower extremity. cc: Abhijeet Trinidad MD
[2019-05-14] MEDS ORDERED: HEPARIN IV PRN (09:15)
[2019-05-14] MEDS ORDERED: NS 2,000 ML MISC PRN (09:15)
--- NOTE | 2019-05-14 09:43 | NEPHROLOGY PROGRESS NOTE ---
DATE: 05/14/2019 SUBJECTIVE: She is in some pain. Wanting to go home. OBJECTIVE: Vital Signs: Blood pressure 177/103, heart rate 84, respirations 22, afebrile. General: No acute distress though is grimacing. Skin: Warm and dry. Conjunctivae are pink. Neck: Neck veins are not appreciated. Trachea is midline. Heart: Regular. No gallops. Lungs: Equal with scattered wheezes. Abdomen: Soft, nontender. Bowel sounds present. Extremities: No edema, clubbing or cyanosis. IMPRESSION: 1. Chronic kidney disease 5D. Moderate hyperkalemia today. A 3.5 hour dialysis with a 2 K bath and a goal of 3 L as her blood pressure allows. 2. Electrolytes/acid base/volume status in target except as above. Hemoglobin is in target. cc: Celso Shepherd MD
[2019-05-14] MEDS ORDERED: D50W SYRINGE ONE (12:19)
[2019-05-14] MEDS ORDERED: D50W SYRINGE IV ONE (12:30)
--- NOTE | 2019-05-14 12:46 | PROGRESS NOTE ---
DATE: 05/14/2019 INTERVAL HISTORY: The patient is seen on dialysis. Status post debridement yesterday. Complaining of some mild pain in her foot. No other new complaints. No acute events overnight. REVIEW OF SYSTEMS: Twelve point review of systems negative except as per interval history. LABS: WBC 14.8, hemoglobin 10.5, hematocrit 35.0, platelets 258,000. Sodium 138, potassium 6.2, BUN 71, creatinine 10, and glucose 112. VITAL SIGNS: T-max 100 degrees, pulse 72, respirations 19, blood pressure 120/62, O2 saturation 97% on 2 L by nasal cannula. PHYSICAL EXAMINATION: General: No acute distress. Vitals: As above. HEENT: Normocephalic, atraumatic. Moist mucous membranes. No cervical adenopathy. Cardiovascular: Regular rate and rhythm. No murmurs noted. Pulmonary: Essentially clear to auscultation bilaterally. No wheezing or rhonchi. Abdomen: Soft, nontender, nondistended. Bowel sounds positive. Extremities: Peripheral pulses intact. Right dialysis access hooked up. Right lower extremity remains bandaged. Bandage clean, dry and intact. Neurologic: Cranial nerves grossly intact. No focal deficits identified. Psychiatric: Normal mood and affect. Awake, alert, oriented x3. ASSESSMENT AND PLAN: 1. Right lower extremity diabetic wound with likely osteomyelitis. The patient with limited I D by Surgery yesterday. They plan on watching it over the weekend, but will likely take her to the operating room on Friday. 2. Diabetes mellitus. Sugars are slightly low. Will decrease 70/30 and monitor. 3. End-stage renal disease. Patient getting dialysis today. Nephrology following. 4. Hyperkalemia, should correct with dialysis today. 5. Hypertension. Reasonable control currently. Monitor. 6. Chronic obstructive pulmonary disease. No sign of exacerbation at this time. Monitor respiratory status. [facility]
[2019-05-14] MEDS: DUONEB (A & A) INH PRN (15:28)
[2019-05-14] MEDS ORDERED: NOVOLOG MIX 70/30 SUBQ SCH (16:00)
[2019-05-14] MEDS ORDERED: VANCOMYCIN 1 GM/NS 1 GM/250 ML IVPB IV ONE (17:00)
[2019-05-15] MEDS: DILAUDID IM PRN ×2 (00:58→05:54)
[2019-05-15] MEDS: CLEOCIN PO SCH ×4 (02:07→22:39)
[2019-05-15 05:53] LABS: BASO# 0.01 X1000 (0.0-0.2); BASO% 0.1 % (0.0-0.8); EOS# 0.02 X1000 (0.0-0.7); EOS% 0.1 % (0.0-10.0); HEMATOCRIT 38.5 % (37.0-47.0); HEMOGLOBIN 11.8 g/dL (12.0-16.0); IMM GRAN# 0.05 X1000 (0.0-0.04); IMM GRAN% 0.3 % (0.0-0.5); LYMPH% 4.7 % (20.5-51.1); MCH 26.7 PG (27-31); MCHC 30.6 g/dL (33-37); MCV 87.1 FL (81-99); MONO# 1.26 X1000 (0.11-0.59); MONO% 7.4 % (1.7-9.3); MPV 11.5 FL (7.4-10.4); NEUT# 14.98 X1000 (1.4-6.5); NEUT% 87.4 % (42.2-75.2); PLT 277 X1000 (130-400); RBC 4.42 XMIL (4.2-5.4); RDW 16.4 % (11.5-14.5); WBC 17.12 X1000 (4.8-10.8)
[2019-05-15] MEDS: HUMALOG SUBQ SCH ×4 (06:15→22:52)
[2019-05-15 06:38] LABS: LYMPHS 4 % (21-51); SEGS 94 % (42-75)
[2019-05-15 06:50] LABS: ALBUMIN 2.9 g/dL (3.5-5.0); CALCIUM 8.4 mg/dL (8.8-10.2); CREATININE 6.8 mg/dL (0.5-0.9); PHOSPHORUS 6.5 mg/dL (2.7-4.5); POTASSIUM 4.9 mmol/L (3.5-5.1)
[2019-05-15] MEDS ORDERED: PHENERGAN PR PRN (10:10)
[2019-05-15] MEDS: COZAAR PO SCH (10:17)
[2019-05-15] MEDS: NORVASC PO SCH (10:17)
[2019-05-15] MEDS: APRESOLINE PO SCH ×4 (10:17→22:37)
[2019-05-15] MEDS: TOPROL XL PO SCH (10:17)
[2019-05-15] MEDS: PERCOCET-10 PO PRN ×2 (11:38→22:38)
--- NOTE | 2019-05-15 12:35 | PROGRESS NOTE ---
DATE: 05/15/2019 INTERVAL HISTORY: Patient complaining of some nausea this morning. The patient has not taken any nausea medication. Discussed with patient that she has IV Zofran available and rectal Phenergan if that is ineffective. The patient remains afebrile. No other acute events. LABORATORY DATA: WBC 17.1, hemoglobin 11.8, hematocrit 38.5, platelets 277,000. Sodium 139, potassium 4.9, BUN 44, creatinine 6.8, glucose 87 to 110. VITAL SIGNS: T-max 99.9 degrees, pulse 70, respirations 21, blood pressure 112/48, O2 saturation 96% on 3 L by nasal cannula next. PHYSICAL EXAMINATION: General: No acute distress. Vital signs: As above. HEENT: Normocephalic, atraumatic. Moist mucous membranes. Neck: No cervical adenopathy. Cardiovascular: Regular rate and rhythm. No murmurs noted. Pulmonary: Clear to auscultation bilaterally. No wheezing, rales, or rhonchi. Abdomen: Soft, nontender, nondistended. Bowel sounds positive. Extremities: Peripheral pulses intact. Right upper extremity dialysis access with thrill. Right lower extremity remains bandaged. Bandaging is clean, dry, intact. Neurologic: Cranial nerves grossly intact. No focal deficits. Psychiatric: Normal mood and affect. Awake, alert, oriented x3. ASSESSMENT AND PLAN: 1. Right lower extremity diabetic wound with likely osteomyelitis. The patient with limited incision and drainage initially. Will likely be going back to the operating room on Friday for further surgical debridement. 2. Diabetes mellitus. The patient's sugars remain a little on the low side with only 1 dose of 70/30 and no sliding scale given yesterday. We will hold the 70/30 entirely and see what her sugar does. 3. End-stage renal disease. Patient is a Friday, Friday, Friday dialysis patient. Nephrology following. 4. Hyperkalemia, resolved with dialysis. 5. Hypertension, pretty good control currently. Continue to monitor. 6. Chronic obstructive pulmonary disease. No sign of exacerbation at this time. 7. Nausea. Not sure of the exact cause but encouraged patient to take nausea medications and see if that helps.
--- NOTE | 2019-05-15 14:38 | NEPHROLOGY PROGRESS NOTE ---
DATE: 05/15/2019 SUBJECTIVE: She has not eaten this morning. Not hungry. Currently no nausea or vomiting. No shortness of breath. OBJECTIVE: Vital Signs: Blood pressure 109/51, heart rate 100, respirations 21, afebrile. General: Lying in bed. No acute distress. Skin: Warm and dry. Conjunctivae are pink. Neck: Neck veins are not appreciated. Trachea is midline. Heart: Regular with a gallop. Soft systolic murmur. Lungs: Equal. No crackles. Abdomen: Soft, nontender. Bowel sounds present. Extremities: No edema, clubbing or cyanosis. Right foot is dressed. IMPRESSION: 1. Chronic kidney disease 5D. She will have her next routine hemodialysis treatment on Friday. 2. Volume status/acid-base/electrolytes/anemia/blood pressure all in target. No changes today. cc: Celso Shepherd MD
--- NOTE | 2019-05-15 15:21 | GENERAL SURGERY PROGRESS NOTE ---
DATE: 05/15/2019 SUBJECTIVE: Still having pain in her heel. Denies any fevers documented overnight, pulse in the 70s, 80s, blood pressure been 112/48, oxygen saturation 95%. General: She is alert. Right heel calcaneus shows a large wound. There is some necrosis here. I do not see any gross purulence. There is exposed bone quite a lot of tissue loss. White count 17, hematocrit 38, creatinine 6.8, glucose been 100. ASSESSMENT/PLAN: A 58-year-old female with a very complicated wound of the right calcaneus. She has osteomyelitis. She is on antibiotics. Very low probability of healing this wound. I think Dr. Berrios plans excisional debridement but suspect she will ultimately progress to amputation. Will continue local wound care with Vashe wet-to-dry dressings twice a day. cc: Selma Verma MD
[2019-05-16] MEDS: CLEOCIN PO SCH ×7 (02:28→21:15)
[2019-05-16] MEDS: HUMALOG SUBQ SCH ×4 (06:00→21:14)
[2019-05-16 06:20] LABS: CALCIUM 8.1 mg/dL (8.8-10.2); POTASSIUM 4.9 mmol/L (3.5-5.1)
[2019-05-16] MEDS: COZAAR PO SCH (08:08)
[2019-05-16] MEDS: NORVASC PO SCH (08:08)
[2019-05-16] MEDS: APRESOLINE PO SCH ×4 (08:08→21:14)
[2019-05-16] MEDS: TOPROL XL PO SCH (08:08)
--- NOTE | 2019-05-16 12:35 | GENERAL SURGERY PROGRESS NOTE ---
DATE: 05/16/2019 SUBJECTIVE: She is still having some pain in her foot. There is no cellulitis extending up her leg. Her toes remained viable. Her dressing is clean. No fevers, no tachycardia documented overnight. LABORATORY DATA: I reviewed her labs, creatinine is 9, glucose is up to 165. ASSESSMENT AND PLAN: This is a 58-year-old female with a severe infection of the right calcaneus. We will continue local wound care. I think Dr. Berrios plans to further debride, but we will continue to monitor her with broad-spectrum antibiotics. cc: Selma Verma MD
--- NOTE | 2019-05-16 13:26 | PROGRESS NOTE ---
DATE: 05/16/2019 INTERVAL HISTORY: The patient is still complaining of intermittent nausea, but has been refusing nausea medication. Has had no further vomiting. A little confused this morning, but remains largely cooperative. REVIEW OF SYSTEMS: Foot pain is stable. A 12-point review of systems is otherwise negative, except as per interval history. LABORATORY DATA: Sodium 137, potassium 4.9, BUN 62, creatinine 9, glucose 104 to 165. OBJECTIVE: Vital Signs: T-max 98.6 degrees, pulse 71, respirations 18, blood pressure 90/50, O2 saturation 91% on room air. General: No acute distress. HEENT: Normocephalic, atraumatic. Moist mucous membranes. Neck: No cervical adenopathy. Cardiovascular: Regular rate and rhythm. No murmurs noted. Pulmonary: Largely clear to auscultation bilaterally. No wheezing, rales, or rhonchi. Abdomen: Soft, nontender, nondistended. Bowel sounds positive. Extremities: Peripheral pulses intact. Right upper extremity dialysis access still with good thrill. Right lower extremity remains bandaged. Neurologic: Cranial nerves grossly intact. No focal deficits identified. Psychiatric: Slightly odd affect. Awake, alert, and cooperative. Oriented to person and place, but struggled with year, and could not come up with the month. ASSESSMENT AND PLAN: 1. Right lower extremity diabetic wound with likely osteomyelitis. Patient with limited incision and drainage initially. Likely going back to the operating room tomorrow for further surgical debridement versus amputation. Patient currently with no intravenous access, and is a pretty hard stick, so may have to get Surgery to put a central line in her sometime today in anticipation of her going to the operating room tomorrow. 2. Diabetes mellitus. Patient off of her home 70/30. Has only gotten 2 units of sliding scale in the last day or so, with excellent control of her sugar. Will likely be able to leave her off of insulin. 3. End-stage renal disease. The patient is a Friday, Friday, Friday dialysis patient. Nephrology following. 4. Hyperkalemia, resolved. 5. Hypertension. Blood pressure remains in the low-normal range. Seeing as how she has been fairly consistently mildly low, I am going to hold her regular Norvasc. 6. Chronic obstructive pulmonary disease. No sign of exacerbation at this time. 7. Nausea. The patient has been a little bit confused. Not sure of her exact baseline. No further vomiting though, so will probably just monitor for now. The patient does have nausea medication available if she needs it, although she has been refusing it thus far.
[2019-05-16] MEDS: PERCOCET-10 PO PRN (16:48)
[2019-05-17] MEDS: CLEOCIN PO SCH ×4 (03:12→19:37)
[2019-05-17 03:43] LABS: ALBUMIN 2.4 g/dL (3.5-5.0); MAGNESIUM 2.5 mg/dL (1.5-2.7); PHOSPHORUS 9.4 mg/dL (2.7-4.5); POTASSIUM 5.1 mmol/L (3.5-5.1)
--- NOTE | 2019-05-17 06:12 | EKG Report ---
Test Performed on : 05/17/2019 06:01:32 AM Test Reason : 6 beat run VT Blood Pressure : / mmHG Vent. Rate : 070 BPM Atrial Rate : 070 BPM P-R Int : 158 ms QRS Dur : 088 ms QT Int : 438 ms P-R-T Axes : 051 -45 030 degrees QTc Int : 473 ms Normal sinus rhythm. Possible Left atrial enlargement Left anterior fascicular block Nonspecific ST abnormality Abnormal ECG When compared with ECG of 05-MAY-2019 04:22, (Unconfirmed) Minimal criteria for Anteroseptal infarct are no longer present Nonspecific T wave abnormality no longer evident in Inferior leads Nonspecific T wave abnormality no longer evident in Anterior leads Confirmed by Tono Ferrer MD ([id number]) on 05/19/2019 3:19:36 PM
--- NOTE | 2019-05-17 06:12 | GENERAL SURGERY PROGRESS NOTE ---
DATE: 05/17/2019 SUBJECTIVE: Patient seems to be doing okay. The patient states she has not had any new dressing changes the whole weekend, and has not had discussion about an amputation. I had 2 nurses in the room at the time, and they both stated that the patient did have dressing changes several times. It has been documented several times that she has had dressing changes. It has been documented that we were pursuing for an amputation. The patient per the nursing staff has been a little bit confused. OBJECTIVE: Vital Signs: Patient is currently afebrile. Her vital signs are stable. General: No acute distress, but appears slightly confused. Cardiovascular: Regular rate and rhythm. Lungs: Grossly clear. Abdomen: Soft. Nontender. Extremities: Wound looks worse to the right foot. ASSESSMENT AND PLAN: A 59-year-old female with right lower extremity wound. 1. Right lower extremity wound. At this time, this has gotten worse. There seems to be exposed bone. We will just go ahead and proceed with a [id number] amputation. Discussed this with the patient. Discussed the risks, benefits, and alternatives of the procedure. She is aware. Nurses were present in the room when we discussed the amputation. 2. Episode of ventricular tachycardia. Labs have been sent. Her creatinine is somewhat high, and she probably will need dialysis after procedure today. We will get a stat EKG. cc: Campbell Berrios MD
[2019-05-17] MEDS ORDERED: DIPRIVAN 1% ONE (06:48)
[2019-05-17] MEDS ORDERED: XYLOCAINE-MPF 2% ONE (06:49)
[2019-05-17] MEDS ORDERED: ROBINUL ONE (06:49)
[2019-05-17] MEDS ORDERED: KETAMINE ONE (06:49)
[2019-05-17] MEDS ORDERED: ZEMURON ONE (06:51)
[2019-05-17] MEDS ORDERED: CLINDAMYCIN 900 MG/D5W 900 MG/50 ML IVPB ONE (07:06)
[2019-05-17] MEDS ORDERED: SODIUM CHLORIDE 0.9% 10 ML ONE ×2 (07:18→08:07)
[2019-05-17] MEDS ORDERED: NEOSPORIN OINTMENT PACKET ONE ×2 (07:19→07:28)
[2019-05-17] MEDS ORDERED: ZOFRAN ONE ×2 (07:36→10:29)
[2019-05-17] MEDS ORDERED: OFIRMEV 1000 MG/ISOTONIC SOLN 1,000 MG/100 ML BOTTLE ONE (07:36)
[2019-05-17] MEDS ORDERED: EPHEDRINE ONE (07:50)
[2019-05-17] MEDS ORDERED: NEO-SYNEPHRINE ONE (07:50)
[2019-05-17] MEDS ORDERED: EPINEPHRINE ONE (08:07)
[2019-05-17] MEDS ORDERED: VERSED ONE (08:12)
[2019-05-17] MEDS ORDERED: BRIDION ONE (08:13)
[2019-05-17] MEDS ORDERED: [UNRECOGNIZED DRUG - OTHER] ONE (08:33)
--- NOTE | 2019-05-17 08:36 | OPERATIVE NOTE ---
PROCEDURE DATE: 05/17/2019 PREOPERATIVE DIAGNOSIS: Osteomyelitis of the right lower extremity at the level of the ankle with chronic wound. POSTOPERATIVE DIAGNOSIS: Osteomyelitis of the right lower extremity at the level of the ankle with chronic wound. PROCEDURE PERFORMED: Right ihwng-euu-loqb amputation. SURGEON: Campbell Berrios M.D. [employer] BR[employer]ING AND SUEDING SUPERVISOR: None. ANESTHESIA: General endotracheal. INTRAOPERATIVE FINDINGS: Wound noted to the bone on the right foot. COMPLICATIONS: None at the time of this dictation. ESTIMATED BLOOD LOSS: 100 mL. SPECIMENS REMOVED: Right lower extremity. BRIEF HISTORY: A 58-year-old female with multiple medical comorbidities, who has had a chronic wound. The wound had progressed. It was felt that just needed [id number] amputation. The risks, benefits, and alternatives were discussed. All questions were answered. DESCRIPTION OF PROCEDURE: After informed consent was obtained, the patient was brought to the operative theater, transferred to the operating table in the supine position. General endotracheal anesthesia was then performed without complication. A formal time-out was then performed, confirming patient, date, and procedure. All were in agreement. At that time, attention was turned to the right leg. It was marked preoperatively. We prepped and draped in a sterile fashion. After the time-out, we turned our attention to the right leg. She previously had a right knee replacement, so we made sure we went lower than the standard location to avoid any hardware. I made an incision over the tibia, and carried all the way down and made a posterior flap. We encountered the tibia itself, went through it with a saw, isolated the vessels, suture ligated the vessels, and then found the fibula and went through it with the saw also. We made a posterior flap. We removed some of the posterior muscle to make the flap come around. We then closed it in layers using 0 Vicryl and prosper for the skin. Hemostasis was achieved with electrocautery and suture ligation. We did place a tourniquet. Tourniquet time was 20 minutes total. The patient's skin was closed with prosper. She tolerated the procedure well. She was transferred back to the recovery room. cc: Campbell Berrios MD
[2019-05-17] MEDS ORDERED: NEO-SYNEPHRINE 50 MG in NS 250 ML IV SCH (09:00)
[2019-05-17 09:05] LABS: HEMATOCRIT 30.9 % (37.0-47.0); HEMOGLOBIN 9.4 g/dL (12.0-16.0)
[2019-05-17] MEDS: DILAUDID ONE ×4 (09:05→09:26)
[2019-05-17] MEDS ORDERED: TORADOL ONE (10:29)
[2019-05-17] MEDS ORDERED: DECADRON ONE (10:29)
[2019-05-17] MEDS ORDERED: NS 2,000 ML MISC PRN (11:38)
[2019-05-17] MEDS ORDERED: HEPARIN IV PRN (11:38)
[2019-05-17] MEDS ORDERED: TIGHT: 0.2 ML/HR FOR DIALYSIS MISC PRN (11:38)
--- NOTE | 2019-05-17 12:01 | NEPHROLOGY PROGRESS NOTE ---
DATE: 05/17/2019 SUBJECTIVE: She is sedated in the recovery room. BKA this morning. Blood pressure has been marginally low, but she is no longer requiring vasopressor support. OBJECTIVE: Vital signs: Blood pressure 97/51, heart rate 76, respirations 13, afebrile. Generally: No acute distress. Skin: Warm and dry. Neck: Neck veins are not distended. Cardiovascular: Heart is regular with systolic murmur and S4. Lungs: Have equal breath sounds, sonorous, no crackles. Abdomen: Soft, nontender. Bowel sounds present. Extremities: No edema, clubbing or cyanosis. IMPRESSION: Chronic kidney disease 5 D. She will have her routine hemodialysis treatment today using a 2 potassium bath, but we will have minimal ultrafiltration today because of her blood pressure. Target 1 to 2 liters at the most. cc: Celso Shepherd MD
[2019-05-17] MEDS: APRESOLINE PO SCH ×3 (12:43→20:05)
[2019-05-17] MEDS: HUMALOG SUBQ SCH ×4 (12:43→20:05)
[2019-05-17] MEDS: TOPROL XL PO SCH (12:44)
[2019-05-17] MEDS: COZAAR PO SCH (12:44)
--- NOTE | 2019-05-17 15:07 | PROGRESS NOTE ---
DATE: 05/17/2019 INTERVAL HISTORY: Patient status post right BKA this morning for infected diabetic foot wound and osteomyelitis. Postop had some continued hypotension and had to be kept on Dimitrios-Synephrine, so she was moved to the ICU. Still requiring Dimitrios-Synephrine now but relatively stable otherwise. Quite somnolent still. No acute events overnight. REVIEW OF SYSTEMS: Unable to obtain secondary to patient mental status. LABS: Hemoglobin 9.4, hematocrit 30.9. Sodium 139, potassium 5.1, BUN 76, creatinine 10, bicarb 23, glucose 85 to 213. VITAL SIGNS: T-max 98.9 degrees, pulse 73, respirations 8, blood pressure 91/52, O2 saturation 97% on 3 L by nasal cannula. PHYSICAL EXAMINATION: General: No acute distress. Vital signs: As above. HEENT: Normocephalic, atraumatic. Moist mucous membranes. Cardiovascular: Regular rate and rhythm currently. Pulmonary: A few scattered rhonchi but largely clear to auscultation. Abdomen: Soft, nontender, nondistended. Bowel sounds positive. Extremities: Peripheral pulses intact. Dialysis access in the right arm with reasonable thrill. Neurologic: Exam limited by patient's mental status. Occasional nonpurposeful movement. Withdraws to noxious stimuli. Pupils equal, round, reactive to light. Psychiatric: Patient is still sedated postop. Withdraws to noxious stimuli but does not arousing enough to answer questions or follow commands currently. ASSESSMENT AND PLAN: 1. Right lower extremity diabetic wound with likely osteomyelitis. Status post right BKA today. Monitor postop. On antibiotics with vancomycin and clindamycin currently. We will likely discontinue clindamycin tomorrow and vancomycin in 2 to 3 days, depending on how her wound does. 2. Diabetes mellitus. Patient has been off of insulin for the most part with good control of her sugar. Suspect she is diet controlled at this point. We will likely be able to leave her off insulin. 3. End-stage renal disease. Patient on Friday, Friday, Friday dialysis schedule. Nephrology following. 4. Hypotension postoperatively. Patient on a little bit of Dimitrios-Synephrine right now, but still quite sedated. Suspect as her sedation comes off we will be able to wean off the Dimitrios- Synephrine, but we will continue to monitor closely in the ICU for now. 5. Hyperkalemia, resolved. 6. Hypertension. Patient is hypertensive by history but blood pressure has been pretty consistently in the low normal range here, so we are holding her home Norvasc and losartan. Initially planned on continuing home metoprolol but given current hypotension, we will go ahead and hold that for now. 7. Chronic obstructive pulmonary disease. No sign of exacerbation at this time.
[2019-05-17] MEDS: PERCOCET-10 PO PRN (16:46)
[2019-05-17] MEDS ORDERED: VANCOMYCIN 1 GM/NS 1 GM/250 ML IVPB IV ONE (17:00)
[2019-05-17] MEDS: DILAUDID IM PRN ×2 (19:41→22:47)
[2019-05-18] MEDS: CLEOCIN PO SCH ×2 (02:13→08:35)
[2019-05-18] MEDS: DILAUDID IM PRN ×5 (04:19→23:50)
--- NOTE | 2019-05-18 05:56 | GENERAL SURGERY PROGRESS NOTE ---
DATE: 05/18/2019 SUBJECTIVE: The patient was moved to the ICU after the operation given the fact she has low blood pressure. She is still requiring a little bit of Dimitrios-Synephrine to keep her blood pressure up, but she seems to be doing okay otherwise. OBJECTIVE: Vital Signs: The patient is currently afebrile. Most recent blood pressure 90/50, pulse 84. General: Resting. Cardiovascular: Regular rate and rhythm. Lungs: Grossly clear. Extremities: Dressing intact to right lower extremity. ASSESSMENT AND PLAN: A 59-year-old female status post right vjcqm-[id number]-mhax amputation. Right gkuip-oyd-evaj amputation: At this time, the patient seems to be doing okay. We hopefully can wean her off Dimitrios-Synephrine. She did get dialysis yesterday. We will continue to follow while she is in the hospital. We will take down her dressing on postoperative day #3. She is currently postoperative day #1. cc: Campbell Berrios MD
[2019-05-18] MEDS: HUMALOG SUBQ SCH ×4 (06:16→21:00)
[2019-05-18] MEDS: APRESOLINE PO SCH ×3 (08:35→21:02)
[2019-05-18] MEDS: PERCOCET-10 PO PRN ×2 (11:47→21:37)
--- NOTE | 2019-05-18 14:18 | PROGRESS NOTE ---
DATE: 05/18/2019 SUBJECTIVE: The patient is complaining of pain. She says she is complaining of chest pain, but diffuse pain. She refused labs today. She has refused to eat. OBJECTIVE: Vital Signs: Blood pressure 94/48, heart rate 86, respiratory rate 15, temperature 98.1 degrees, saturating 90% on room air. Cardiovascular: Regular rate and rhythm. Pulmonary: Bilateral breath sounds. Clear to auscultation. GI: Soft, nontender, nondistended. Bowel sounds are positive. LABORATORY DATA: She refused labs, so I do not have any labs today. PROBLEM LIST: 1. Osteomyelitis, diabetic wound, but she is status post below-knee amputation, so that is pretty much resolved. She is on antibiotics. I am going to stop her clindamycin because at this point, we have removed the source of infection. 2. Type 2 diabetes. Will continue to monitor; currently on SSI. 3. End-stage renal. Friday, Friday, Friday. Nephrology managing. 4. Hypotension. She is off Dimitrios-Synephrine. We have held all her blood pressure medicines at the time. 5. Chronic obstructive pulmonary disease is stable currently. Will continue to follow. I think she is probably stable to go to PVC. Will continue to monitor. cc: Davi Mcclellan MD MTDD
--- NOTE | 2019-05-18 14:18 | NEPHROLOGY PROGRESS NOTE ---
DATE: 05/18/2019 SUBJECTIVE: She is very anxious today, hallucinating to some degree. Seeing ants and potatoes on the wall. OBJECTIVE: Vital signs: Blood pressure 94/48, heart rate 86, respirations 15, afebrile. General: Again anxious, in pain. Skin is warm and dry. Conjunctivae are pink. Neck: Neck veins are not appreciated. Cardiovascular: Heart is regular with a murmur and a venous hum. Lungs: Have equal breath sounds. No crackles. Abdomen: Benign. Extremities: No edema. Dressing is dry. IMPRESSION: Chronic kidney disease 5D. She will have her next routine hemodialysis treatment tomorrow. Blood pressure is low and she may be modestly hypovolemic. We will reassess before dialyzing tomorrow. Electrolytes/acid base were in target yesterday but have not been rechecked. Continue pain management, nutrition, and increasing activity. cc: Celso Shepherd MD
--- NOTE | 2019-05-18 15:32 | EKG Report ---
Test Performed on : 05/18/2019 2:48:22 PM Test Reason : cp Blood Pressure : / mmHG Vent. Rate : 092 BPM Atrial Rate : 092 BPM P-R Int : 138 ms QRS Dur : 086 ms QT Int : 392 ms P-R-T Axes : 059 -41 066 degrees QTc Int : 484 ms Normal sinus rhythm. Possible Left atrial enlargement Left axis deviation Possible Anterior infarct , age undetermined T wave inversion in Lateral leads Abnormal ECG When compared with ECG of 17-MAY-2019 06:01, (Unconfirmed) Borderline criteria for Anterior infarct are now present T wave inversion more evident in Lateral leads Confirmed by Tono Ferrer MD ([id number]) on 05/19/2019 3:44:18 PM
[2019-05-19] MEDS ORDERED: DILAUDID IM PRN (02:30)
[2019-05-19] MEDS: DILAUDID IM PRN ×2 (02:36→06:43)
[2019-05-19] MEDS: NON-FORMULARY BULK MED LEFT EYE SCH ×3 (03:52→21:00)
[2019-05-19] MEDS: PERCOCET-10 PO PRN ×2 (04:28→13:12)
--- NOTE | 2019-05-19 05:47 | GENERAL SURGERY PROGRESS NOTE ---
DATE: 05/19/2019 The patient has been confused, but she was transferred to the floor. She has been hemodynamically more stable. She is off pressors, but, again, she has been confused. She asked me questions. She said she does not know exactly what is going on. I discussed with her that she had a recent amputation. She did ask me who was going to bury her, thinking that she was actually currently . The nurses report that they have had some issues with pain control, but given her altered mental status, I am unsure if we want to give her any more pain medicine. Her wound has a dressing intact. We will take it down tomorrow, but in the meantime, I will start her on Neurontin. I did discuss with the pharmacist the safest dose for her given the fact that she is on dialysis and we started her on 100 daily. Hopefully, this will help with her discomfort. cc: Campbell Berrios MD
[2019-05-19] MEDS: HUMALOG SUBQ SCH ×4 (06:26→21:00)
[2019-05-19 06:47] LABS: CREATININE 8.9 mg/dL (0.5-0.9); POTASSIUM 5.3 mmol/L (3.5-5.1)
[2019-05-19] MEDS: DUONEB (A & A) INH PRN ×2 (07:34→19:50)
[2019-05-19] MEDS: NEURONTIN PO SCH ×2 (07:54→08:28)
[2019-05-19] MEDS: APRESOLINE PO SCH (08:27)
[2019-05-19 08:37] LABS: BASO# 0.04 X1000 (0.0-0.2); BASO% 0.3 % (0.0-0.8); EOS% 0.8 % (0.0-10.0); HEMATOCRIT 29.8 % (37.0-47.0); HEMOGLOBIN 9.1 g/dL (12.0-16.0); IMM GRAN# 0.09 X1000 (0.0-0.04); IMM GRAN% 0.7 % (0.0-0.5); LYMPH% 9.7 % (20.5-51.1); MCH 26.5 PG (27-31); MCHC 30.5 g/dL (33-37); MCV 86.6 FL (81-99); MONO# 1.24 X1000 (0.11-0.59); MPV 10.7 FL (7.4-10.4); NEUT# 9.71 X1000 (1.4-6.5); NEUT% 78.5 % (42.2-75.2); PLT 276 X1000 (130-400); RBC 3.44 XMIL (4.2-5.4); WBC 12.38 X1000 (4.8-10.8)
[2019-05-19] MEDS ORDERED: NS 250 ML IV ONE (09:00)
[2019-05-19] MEDS ORDERED: TIGHT: 0.2 ML/HR FOR DIALYSIS MISC PRN (10:19)
[2019-05-19] MEDS ORDERED: HEPARIN IV PRN (10:19)
[2019-05-19] MEDS ORDERED: NS 2,000 ML MISC PRN (10:19)
--- NOTE | 2019-05-19 11:40 | NEPHROLOGY PROGRESS NOTE ---
DATE: 05/19/2019 SUBJECTIVE: She is better today than yesterday. She is awake, alert. She is not anxious. She does still have pain and still admits to hallucinations. OBJECTIVE: Vital Signs: Blood pressure 88/65, heart rate 80, respirations 14, afebrile. General: No acute distress. Skin: Warm and dry. Neck: Neck veins are not distended. Heart: Regular. No gallops. Systolic murmur present. S4 present. Lungs: Equal. No crackles or wheezes. Abdomen: Soft, nontender. Bowel sounds are present. Extremities: No edema, clubbing or cyanosis. Right leg is dressed. IMPRESSION AND PLAN: Chronic kidney disease 5D. She is currently receiving her routine dialysis. Potassium is marginally elevated at 5.3, and this will be addressed with her treatment today. Acid base and electrolytes otherwise are in target. Volume status is euvolemic or hypovolemic. Minimal ultrafiltration today. Hemoglobin 9.1 today, minimal change since postoperative. cc: Celso Shepherd MD
--- NOTE | 2019-05-19 12:50 | Diag Imaging Result Doc PS360 ---
CT HEAD W/O CONTRAST - 05/19/2019 INDICATION: encephalopathy COMPARISON: 01/12/2017 FINDINGS: There are stable old lacunar infarctions bilaterally. The ventricles and sulci are normal in size and contour. No intracranial mass or hemorrhage. The skull is intact. The sinuses, mastoids, and middle ears are clear. IMPRESSION: No acute disease or change from prior. This exam was performed using automated exposure control, adjustment of mA or kV according to patient size, and/or use of iterative reconstruction technique Electronically signed by Edgar Olmos 05/19/2019 12:47 PM
[2019-05-19] MEDS ORDERED: RISPERDAL M-TAB PO ONE (14:56)
--- NOTE | 2019-05-19 15:19 | PROGRESS NOTE ---
DATE: 05/19/2019 SUBJECTIVE: Patient has no major complaints. OBJECTIVE: Vital Signs: Blood pressure is 129/53, heart rate 95, respiratory rate 20, temperature 97.9 degrees, satting 96% on room air. Cardiovascular: Regular rate and rhythm. Pulmonary: Bilateral breath sounds. Clear to auscultation. GI: Soft, nontender, nondistended. Bowel sounds were positive. LABORATORY DATA: Her potassium is 5.3 today, BUN and creatinine 57 and 8.9, that was predialysis I believe. Hemoglobin and hematocrit is 9 and 29, white count of 12. PROBLEM LIST: 1. Encephalopathy, really not quite sure why she is so encephalopathic. Her BUN is mildly elevated, but not for her. She may have some undiagnosed psychiatric issues, but she really does not understand what is going on. I do not think she realizes about her leg, what kind of state it is in. Like I think she forgets that she has had an amputation. I do not know if she is having an adjustment disorder related to that. It almost seems like she is delirious. I am really not entirely sure why she is so confused. She does redirect. She does realize she needs to be in the hospital or she is in the hospital, but sometimes she thinks she is at home. She is difficult to kind of reason. It is very uncertain as to why she is so confused without really a very good reason. In any case, she does redirect, but then she does not completely understand what is going on. 2. 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 Dr. Berrios has started some Neurontin. I think we could certainly titrate up on that. I am going to stop her Dilaudid. I am not sure if that is causing some confusion. I am going to switch her to OxyIR, no Tylenol. She is not really on anything mind-altering, and we will add some p.r.n. Risperdal just to see if we can get her mental status a little bit better. Really not sure what is inducing that per se. She is on vancomycin, but since she has had this removed, I think we could probably stop it because presumably her source of infection is gone. She was never bacteremic, and she has had an amputation, so there should be any osteo, there should not be any residual infection. It has been literally cut out. I am just going to cut down her new medications because I am just not sure if that is causing some of her confusion. 3. Transient hypotension. I am not quite sure what is causing that either. She is persistently hypotensive. I will rule out some adrenal insufficiency; maybe that is causing some of her confusion, but her blood pressure is actually doing okay, but I am going to order that test tomorrow. We will continue to monitor in the unit. cc: Davi Mcclellan MD
[2019-05-19] MEDS ORDERED: VANCOMYCIN 1 GM/NS 1 GM/250 ML IVPB IV ONE (17:00)
[2019-05-19] MEDS ORDERED: STERILE WATER INJ. INJ PRN (17:16)
[2019-05-19] MEDS ORDERED: GEODON IM PRN (17:16)
[2019-05-19] MEDS: RISPERDAL M-TAB PO SCH (20:10)
[2019-05-19] MEDS: OXY IR PO PRN (20:10)
[2019-05-20] MEDS: OXY IR PO PRN (05:52)
--- NOTE | 2019-05-20 05:59 | GENERAL SURGERY PROGRESS NOTE ---
DATE: 05/20/2019 The patient seems to still be a little bit altered, but seems to be improving slightly. She had a CT scan that did not show any acute process. They did give her Geodon yesterday which made some improvement. She has been hemodynamically stable. I took down her dressing on her amputation site and it seems to be healing well. From a surgical point of view continue current treatment, try to protect her stump as much as possible, and we will continue to monitor her. cc: Campbell Berrios MD
[2019-05-20] MEDS ORDERED: CORTROSYN IV ONE (07:19)
[2019-05-20] MEDS: HUMALOG SUBQ SCH ×4 (07:29→21:02)
[2019-05-20 07:37] LABS: BASO# 0.03 X1000 (0.0-0.2); BASO% 0.3 % (0.0-0.8); EOS# 0.11 X1000 (0.0-0.7); EOS% 1.1 % (0.0-10.0); HEMATOCRIT 26.1 % (37.0-47.0); HEMOGLOBIN 7.8 g/dL (12.0-16.0); IMM GRAN# 0.05 X1000 (0.0-0.04); IMM GRAN% 0.5 % (0.0-0.5); LYMPH# 0.98 X1000 (1.2-3.4); LYMPH% 9.8 % (20.5-51.1); MCH 26.5 PG (27-31); MCHC 29.9 g/dL (33-37); MCV 88.8 FL (81-99); MONO# 0.77 X1000 (0.11-0.59); MONO% 7.7 % (1.7-9.3); MPV 10.9 FL (7.4-10.4); NEUT# 8.04 X1000 (1.4-6.5); NEUT% 80.6 % (42.2-75.2); PLT 344 X1000 (130-400); RBC 2.94 XMIL (4.2-5.4); RDW 16.7 % (11.5-14.5); WBC 9.98 X1000 (4.8-10.8)
[2019-05-20] MEDS: DUONEB (A & A) INH PRN ×2 (07:45→15:25)
[2019-05-20 07:59] LABS: CALCIUM 7.5 mg/dL (8.8-10.2); POTASSIUM 5.3 mmol/L (3.5-5.1)
[2019-05-20 08:00] LABS: CREATININE 6.9 mg/dL (0.5-0.9)
[2019-05-20] MEDS: NEURONTIN PO SCH (08:08)
[2019-05-20] MEDS: NON-FORMULARY BULK MED LEFT EYE SCH ×2 (08:09→21:14)
[2019-05-20] MEDS: LOKELMA POWDER PACKET PO SCH (12:24)
--- NOTE | 2019-05-20 14:09 | NEPHROLOGY PROGRESS NOTE ---
DATE: 05/20/2019 SUBJECTIVE: She is complaining of sacral pain where she has an ulcer. She has not eaten her lunch as of yet. No shortness of breath. Leg pain is improved. OBJECTIVE: Vital Signs: Blood pressure 119/56, heart rate 87, respirations 17, afebrile. General: No acute distress except for pain. Neck: Neck veins are not distended. Trachea is midline. Heart: Regular. Lungs: Equal. No crackles. Abdomen: Soft, nontender. Bowel sounds are present. Extremities: No edema. Right leg is dressed. Sacrum is dressed. IMPRESSION: Chronic kidney disease 5D. PLAN: She is to undergo her routine dialysis tomorrow. Electrolytes/acid base/volume status on target. Hemoglobin dropped to 7.8 today. She does not meet criteria for transfusion but we will continue to monitor carefully. I spoke with the nurse about having her out of bed tomorrow or this evening as much as possible. Otherwise work on rehab. cc: Celso Shepherd MD
--- NOTE | 2019-05-20 15:00 | PROGRESS NOTE ---
DATE: 05/20/2019 SUBJECTIVE: Patient has no major complaints. She is in much better mind today. She knows where she is. She knows that she has had an amputation. She does seem a little bit groggy, but we did start some Neurontin yesterday, changed her pain medication around because she was acting more delirious yesterday. OBJECTIVE: Vital Signs: Blood pressure 119/56, heart rate of 87, respiratory rate 17, temperature 98.2 degrees. Her blood pressures have been good, a little low yesterday but better today. LABORATORY DATA: Potassium is up a little bit. Hemoglobin and hematocrit dropped a little bit, but normal for end-stage renal, 7 and 26. Potassium 5.3. PROBLEM LIST: 1. Gangrene of the foot, status post amputation. She is doing okay. 2. Anemia. She is stable. We will continue to monitor. 3. Hyperkalemia. I have started some Lokelma. We will continue to monitor. DISPOSITION: I think she is stable for rehab and we are looking at this and she seems to be doing okay. Hopefully, home soon or to rehab soon. We are just waiting on final data. cc: Davi Mcclellan MD
--- NOTE | 2019-05-20 15:29 | DISCHARGE SUMMARY ---
ADMISSION DATE: 05/12/2019 DISCHARGE DATE: 05/20/2019 ADMISSION DIAGNOSES: 1. Chronic diabetic foot ulcer of the right lower extremity. 2. Osteomyelitis. 3. End-stage renal disease, on Friday, Friday, and Friday. 4. Diabetes mellitus type 2. 5. Hypertension. DISCHARGE DIAGNOSES: 1. Encephalopathy. It was really unclear as to why she was so encephalopathic. 2. Status post [id number] amputation due to gangrenous foot with osteomyelitis. 3. Transient hypotension. CONSULTATIONS: Dr. Campbell Berrios, Dr. Shepherd, wound care. SURGERY/PROCEDURES: On 05/13/2019, performed by Dr. Ferrer, incision and debridement of the skin, subcutaneous tissue, muscle, and fascia of the right foot wound. On 05/17/2019, a right [id number] amputation due to osteomyelitis of the right lower extremity at the level of the ankle and with chronic wound, also performed by Dr. Campbell Berrios. HOSPITAL COURSE: On 05/12/2019, Ms. Michelle Lara presented with complaints of right heel pain and drainage. She has a history of a ulcer in that area. Recent MRI was suspicious for osteomyelitis. She has a history of end-stage renal disease where she gets dialysis Friday, Friday, Friday. The right foot, there was an incision and drainage performed by Dr. Campbell Berrios and that was performed on 05/13/2019, and then ended up performing a right [id number] amputation on 05/17/2019. She was on antibiotic therapy including vancomycin, clindamycin, and Zyvox. Vancomycin, of course, was given with dialysis treatments. The site looks good. She has had continued dialysis treatments while she was here. She did have some postop hypotension, was placed on Dimitrios-Synephrine, and moved to the ICU for a short time. Drowsy during that time. Antibiotics were switched to vancomycin and clindamycin. Then she has weaned off the Dimitrios- Synephrine by the 17 of May. The clindamycin was stopped on the as well. Blood cultures remained negative. She is stable for discharge to rehab. DISCHARGE VITAL SIGNS: Temperature is 98.2 degrees, heart rate 87, respiratory rate 17, blood pressure 119/56, O2 saturation 98% on 1 L nasal cannula. LABORATORY DATA: White blood cells are 9000, hemoglobin 7.8, hematocrit 26.1, platelet count 344,000. Sodium 139, potassium 5.3, BUN 38, creatinine 6.9, glucose 81, calcium 7.5. MICROBIOLOGY: Blood cultures on the are negative after 5 days. No blood products given. PERTINENT IMAGING: On 05/12/2019, foot x-ray on the right. Soft tissue edema with ulceration at the plantar aspect of the heel. No discrete bony erosion identified to indicate osteomyelitis. Then an extremity venous study on the same day. No deep vein thrombosis or superficial venous thrombosis. Chest x-ray on the , bibasilar atelectasis and cardiomegaly. Head CT on the , no acute findings. There was a stable old lacunar infarct bilaterally. EKG on the , normal sinus rhythm, rate 70, QTc was 473. EKG on the , normal sinus rhythm, rate 92, QTc 484. DISCHARGE MEDICATIONS: 1. Durezol 1 drop in left eye twice a day. 2. OxyIR 5 mg p.o. every 3 hours p.r.n. 3. Metoprolol succinate 25 mg p.o. daily. 4. Neurontin 100 mg p.o. daily. 5. Insulin NovoLog 70/30 with 15 units subcutaneous twice a day before a meal. 6. Albuterol inhaled 2 puffs 4 times a day p.r.n. DISCHARGE DIET: Diabetic, renal diet. DISCHARGE ACTIVITY: As tolerated and take care to prevent falls. DISCHARGE INSTRUCTIONS: If your condition changes, contact your physician and/or return to the emergency department. Changes may include, but are not limited to shortness of breath, increased fatigue, excessive bleeding, unexplained weight loss or gain, unmanageable pain, signs or symptoms of infection. PHYSICIAN FOLLOWUP: Dr. Campbell Berrios, Dr. Ciro Fall, Dr. Celso Shepherd. DISCHARGE DISPOSITION: [place]. Dictated by DIXIE Quiroz for Davi Mcclellan MD cc: DIXIE Quiroz MD
[2019-05-20] MEDS: RISPERDAL M-TAB PO SCH ×2 (21:08→21:19)
--- NOTE | 2019-05-21 05:58 | GENERAL SURGERY PROGRESS NOTE ---
DATE: 05/21/2019 Nursing staff reports no major issues. They are in the process of trying to get her arranged for discharge to rehab facility. Her wound yesterday looked like it was healing. At this point, I am okay with her going to a rehab facility. cc: Campbell Berrios MD
[2019-05-21 06:17] LABS: HEMOGLOBIN 8.1 g/dL (12.0-16.0); MCH 26.6 PG (27-31); MCV 88.5 FL (81-99); MPV 10.7 FL (7.4-10.4); RBC 3.05 XMIL (4.2-5.4); RDW 16.7 % (11.5-14.5); WBC 9.27 X1000 (4.8-10.8)
[2019-05-21] MEDS: HUMALOG SUBQ SCH ×2 (06:23→12:56)
[2019-05-21 06:31] LABS: ALBUMIN 2.9 g/dL (3.5-5.0); CALCIUM 7.6 mg/dL (8.8-10.2); PHOSPHORUS 8.5 mg/dL (2.7-4.5); POTASSIUM 5.2 mmol/L (3.5-5.1)
[2019-05-21 06:35] LABS: CREATININE 9.2 mg/dL (0.5-0.9)
[2019-05-21] MEDS ORDERED: NS 2,000 ML MISC PRN (07:35)
[2019-05-21] MEDS ORDERED: HEPARIN IV PRN (07:35)
--- NOTE | 2019-05-21 10:53 | DISCHARGE SUMMARY ---
ADMISSION DATE: 05/12/2019 DISCHARGE DATE: HISTORY: On the day of discharge, she was examined in dialysis. She does look a little bit lethargic but overall she seems to be doing okay. She is not upset. Discussed the plan that she would be transferred to rehab today. Her exam is otherwise unchanged. Her hemoglobin and hematocrit is 8 and 27. Potassium is still up a little bit at 5.2. Overall, looks okay. Plan based on yesterday's data is that she is going to go to rehab today. Everything, I think has been set up. Otherwise, we will continue to monitor closely. cc: Davi Mcclellan MD
[2019-05-21] MEDS: LOKELMA POWDER PACKET PO SCH (12:56)
[2019-05-21] MEDS: NON-FORMULARY BULK MED LEFT EYE SCH (12:56)
[2019-05-21] MEDS: NEURONTIN PO SCH (12:56)
--- NOTE | 2019-05-21 14:25 | NEPHROLOGY PROGRESS NOTE ---
DATE: 05/21/2019 SUBJECTIVE: She is sitting in her bed. She interrupted her dialysis treatment early today. Tomorrow is her routine outpatient day. Eating. Still complaining of pain. Denies hallucinations today. OBJECTIVE: Vital Signs: Blood pressure 113/57, heart rate 78, respiration 18, afebrile. General: No acute distress. Skin: Dry, no changes. IMPRESSION: Chronic kidney disease 5D. She will attend her routine outpatient dialysis treatment tomorrow at her outpatient clinic. Electrolytes and acid-base are in target. Hemoglobin is below target but stable. Okay for discharge from my perspective. cc: Celso Shepherd MD
[2019-05-21] MEDS ORDERED: CALMOSEPTINE OINTMENT TOP PRN (14:52)
[2019-05-21 16:10] VITALS: BP 115/59
[2019-05-21] MEDS: OXY IR PO PRN (16:53)
== END 2019-05-21 19:15 | DRG 239 ==
LOC: SUPCPDRO → ED 12:14 → 1N 21:01 → SUATTDRO 21:01 → 4N 05-17 09:23 → ICU 05-17 11:58 → 2N 05-18 18:54 → 1N 05-20 16:16
PROVIDERS: ATTEND Internal Medicine